=== PATIENT | male | born 1950 | race Caucasian/White ===

== ENCOUNTER 2018-07-06 23:37 | Emergency (ER) | payer MEDICARE, OTHER, SELFPAY ==
--- NOTE | 2018-07-06 23:38 | W.ED.GENAD ---
Discharge Plan Disposition Patient Disposition: HOME Condition: Stable Discharge Details Chief Complaint: RashLesion Clinical Impression: Shingles Primary Care Provider: Char Martin ED Provider: Seferino Duke Home Meds and New Rx's Prescriptions: New oxycodone 5 mg tablet 5 mg PO Q6H PRN (Reason: pain) Qty: 12 RF: 0 acyclovir 800 mg tablet 800 mg PO Q4H 7 Days Qty: 42 RF: 0 lidocaine 5 % adhesive patch,medicated 2 patch TP DAILY Qty: 30 RF: 0 Discharge Instructions Instructions: Shingles (ED) Additional Instructions: for pain take 1000mg tylenol and 600mg ibuprofen every 6 hours for pain as needed. If you need additional pain relief take 1 oxycodone. Do not drink alcohol or drive if you take this follow up as scheduled with your primary care provider next week if you have severe worsening of pain or persistent vomit return to the emergency department Medical Decision Making 67 yo male comes in with right sided back pain for a week and a rash in the area that he hurts for a few days along with some malaise, denies high fevers, hematuria. On exam in the t6 dermatome of the back on the right there is 2 areas of a maculopapular rash that are 3x2cm and 3x4cm. No current vesicles, blanches and is where his pain is localized. no cva tenderness and no urinary symptoms so doubt pyelo and pain doesn't sound consistent with renal colic. No abdominal tenderness and no guarding on exam so doubt entities such as cholecystitis or surgical pathology. Will start tx for shingles given rash seems typical for this, follows a dermatome and doesn't cross midline. I will d/c and he has f/u with pcp next week and return preautions given Differential Diagnosis shingles, cellulitis HPI General Mode of arrival: ambulatory. Date/Time Provider Initiated Documentation: 07/06/18 23:38. Limitations to Documentation: no limitations. Information obtained by: patient. History of Present Illness 67 year old M presents to the emergency department with the chief complaint of right back pain, described as moderate, Quality is described as aching, and is localized to the back and right. Patient started experiencing this week(s) (1) and it has been constant. No relieving factors improve symptom(s), No exacerbating factors reported . Patient notes other (malaise, paresthesia). Patient did receive the following treatments prior to arrival, none Related Data Home Medications Medication Instructions Recorded Confirmed acyclovir 800 mg PO Q4H 7 Days #42 tab 07/06/18 lidocaine 2 patch TP DAILY #30 each 07/06/18 oxycodone 5 mg PO Q6H PRN #12 tab 07/06/18 Previous Rx's Medication Instructions Recorded acyclovir 800 mg PO Q4H 7 Days #42 tab 07/06/18 lidocaine 2 patch TP DAILY #30 each 07/06/18 oxycodone 5 mg PO Q6H PRN #12 tab 07/06/18 Allergies Allergy/AdvReac Type Severity Reaction Status Date / Time Penicillins AdvReac Unverified 07/06/18 23:45 Review of Systems Review of Systems All systems reviewed & are unremarkable except as noted in HPI and below Constitutional Denies chills and Denies fever(s) Respiratory Denies cough Gastrointestinal Denies nausea and Denies vomiting Genitourinary Denies dysuria Musculoskeletal Denies joint swelling [facility] Social History Smoking/Tobacco Use Status: Current every day Alcohol Intake: current Alcohol Intake frequency: a few times a week Alcohol type: beer Drug use: Never Substance use type: does not use Exam Const General: no acute distress Orientation: alert HENMT Head: normal to inspection Ears: external ears normal General nose exam: external nose normal Mouth: moist mucous membranes Eyes General: appearance normal, both eyes and all related structures Neck Neck: normal visual inspection Resp Effort & Inspection: normal respiratory effort and able to speak in complete sentences Cardio Rate: regular rate Skin General skin exam: elasticity normal Neuro General: alert and oriented x3 Extrem General: normal to inspection Psych Mental Status: mental status grossly normal
[2018-07-06 23:40] VITALS: BP 169/80; PULSE 75; RESP 16; TEMP 37.1; O2SAT 96
--- NOTE | 2018-07-06 23:45 | ED.GENADUL_ITS ---
Discharge Plan Disposition Patient Disposition: HOME Condition: Stable Discharge Details Chief Complaint: RashLesion Clinical Impression: Shingles Primary Care Provider: Char Martin ED Provider: Seferino Duke Home Meds and New Rx's Prescriptions: New oxycodone 5 mg tablet 5 mg PO Q6H PRN (Reason: pain) Qty: 12 RF: 0 acyclovir 800 mg tablet 800 mg PO Q4H 7 Days Qty: 42 RF: 0 lidocaine 5 % adhesive patch,medicated 2 patch TP DAILY Qty: 30 RF: 0 Discharge Instructions Instructions: Shingles (ED) Additional Instructions: for pain take 1000mg tylenol and 600mg ibuprofen every 6 hours for pain as needed. If you need additional pain relief take 1 oxycodone. Do not drink alcohol or drive if you take this follow up as scheduled with your primary care provider next week if you have severe worsening of pain or persistent vomit return to the emergency department Medical Decision Making 67 yo male comes in with right sided back pain for a week and a rash in the area that he hurts for a few days along with some malaise, denies high fevers, ashlyn turia. On exam in the t6 dermatome of the back on the right there is 2 areas of a maculopapular rash that are 3x2cm and 3x4cm. No current vesicles, blanches and is where his pain is localized. no cva tenderness and no urinary symptoms so doubt pyelo and pain doesn't sound consistent with renal colic. No abdominal tenderness and no guarding on exam so doubt entities such as cholecystitis or surgical pathology. Will start tx for shingles given rash seems typical for this, follows a dermatome and doesn't cross midline. I will d/c and he has f/u with pcp next week and return preautions given Differential Diagnosis shingles, cellulitis HPI General Mode of arrival: ambulatory . Date/Time Provider Initiated Documentation: 07/06/18 23:38 . Limitations to Documentation: no limitations . Information obtained by: patient . History of Present Illness 67 year old M presents to the emergency department with the chief complaint of right back pain, described as moderate, Quality is described as aching, and is localized to the back and right. Patient started experiencing this week(s) (1) and it has been constant. No relieving factors improve symptom(s), No exacerbating factors reported . Patient notes other (malaise, paresthesia). Patient did receive the following treatments prior to arrival, none Related Data Home Medications Medication Instructions Recorded Confirmed acyclovir 800 mg PO Q4H 7 Days #42 tab 07/06/18 lidocaine 2 patch TP DAILY #30 each 07/06/18 oxycodone 5 mg PO Q6H PRN #12 tab 07/06/18 Previous Rx's Medication Instructions Recorded acyclovir 800 mg PO Q4H 7 Days #42 tab 07/06/18 lidocaine 2 patch TP DAILY #30 each 07/06/18 oxycodone 5 mg PO Q6H PRN #12 tab 07/06/18 Allergies Allergy/AdvReac Type Severity Reaction Status Date / Time Penicillins AdvReac Unverified 07/06/18 23:45 Review of Systems Review of Systems All systems reviewed & are unremarkable except as noted in HPI and below Constitutional Denies chills and Denies fever(s) Respiratory Denies cough Gastrointestinal Denies nausea and Denies vomiting Genitourinary Denies dysuria Musculoskeletal Denies joint swelling PFSH Social History Smoking/Tobacco Use Status: Current every day Alcohol Intake: current Alcohol Intake frequency: a few times a week Alcohol type: beer Drug use: Never Substance use type: does not use Exam Const General: no acute distress Orientation: alert HENMT Head: normal to inspection Ears: external ears normal General nose exam: external nose normal Mouth: moist mucous membranes Eyes General: appearance normal, both eyes and all related structures Neck Neck: normal visual inspection Resp Effort & Inspection: normal respiratory effort and able to speak in complete sentences Cardio Rate: regular rate Skin General skin exam: elasticity normal Neuro General: alert and oriented x3 Extrem General: normal to inspection Psych Mental Status: mental status grossly normal
[2018-07-06] MEDS: Acyclovir 400 MG TAB 800 MG PO (23:51)
[2018-07-06] MEDS: Lidocaine 5% Patch 1 PATCH TP (23:52)
[2018-07-07] MEDS: oxyCODONE 5 MG TAB PO ×2 (00:03→00:04)
== END 2018-07-07 00:17 | disposition home or self-care (01) ==
LOC: ER 07-07 00:16
PROVIDERS: Emergency Provider Emergency Medicine
DX: M54.5 Low back pain (principal); B02.9 Zoster without complications
CPT/HCPCS: 99283

== ENCOUNTER 2018-07-17 02:15 | Outpatient (CLI) | payer MEDICARE, OTHER, SELFPAY ==
[2018-07-17 12:51] LABS: ALT 20 U/L (12-78); AST 20 U/L (15-37); Alkaline Phosphatase 85 U/L (46-116); BUN 17 mg/dL (7-18); Bilirubin, Total 0.6 mg/dL (0.2-1.0); CREATININE 1.29 mg/dL (0.70-1.30); Calcium 9.3 mg/dL (8.5-10.1); Chloride 103 mmol/L (98-107); Cholesterol 274 mg/dL (50-200); Estimated GFR 55.72 (mL/min/1.73m2); Glucose 86 mg/dL (70-100); HDL Cholesterol 54 mg/dL (40-60); LDL CHOLESTEROL 196 mg/dL (<100); Sodium 141 mmol/L (136-145); TSH (W/Ref FT4) 13.29 uIU/mL (0.358-3.74); Total Protein 7.1 g/dL (6.4-8.2); Triglyceride 98 mg/dL (30-150)
[2018-07-17 14:15] LABS: FREE T4 0.87 ng/dL (0.76-1.46)
[2018-07-18 10:59] LABS: PSA, Screening 1.1 ng/ml (0-4.5)
== END 2018-07-17 02:35 ==
DX: E03.9 Hypothyroidism, unspecified (principal); G47.00 Insomnia, unspecified; I10 Essential (primary) hypertension; N40.0 Benign prostatic hyperplasia without lower urinary tract symptoms; R00.0 Tachycardia, unspecified; Z12.5 Encounter for screening for malignant neoplasm of prostate
CPT/HCPCS: 36415; 80053; 80061; 83721; 84153; 84439; 84443

== ENCOUNTER 2018-08-25 14:56 | Outpatient (CLI) | payer MEDICARE, OTHER, SELFPAY ==
--- NOTE | 2018-08-25 09:30 | DI.RAD_ITS ---
SYMPTOM/DIAGNOSIS: ACUTE KNEE PAIN, M25.569 LEFT KNEE: There are no prior comparison exams. The joint spaces are well maintained. No fracture or joint effusion is seen. There is minimal periarticular spurring. IMPRESSION: Minimal degenerative changes.
== END 2018-08-25 15:16 ==
DX: M25.562 Pain in left knee (principal); M17.12 Unilateral primary osteoarthritis, left knee
CPT/HCPCS: 73562

== ENCOUNTER 2018-09-12 02:21 | Outpatient (CLI) | payer MEDICARE, OTHER, SELFPAY ==
[2018-09-12 10:00] LABS: TSH (W/Ref FT4) 14.61 uIU/mL (0.358-3.74)
[2018-09-12 10:31] LABS: FREE T4 0.89 ng/dL (0.76-1.46)
== END 2018-09-12 02:41 ==
DX: E03.9 Hypothyroidism, unspecified (principal); R00.2 Palpitations; G47.00 Insomnia, unspecified
CPT/HCPCS: 36415; 84439; 84443

== ENCOUNTER 2018-11-05 01:51 | Outpatient (CLI) | payer MEDICARE, OTHER, SELFPAY ==
[2018-11-05 13:03] LABS: Anion Gap 4.8 mmol/L (3-11); BUN 22 mg/dL (7-18); CO2 31.2 mmol/L (21.0-32.0); CREATININE 1.39 mg/dL (0.70-1.30); Calcium 8.9 mg/dL (8.5-10.1); Chloride 101 mmol/L (98-107); Estimated GFR 50.97 (mL/min/1.73m2); Glucose 97 mg/dL (70-100); Potassium 4.4 mmol/L (3.5-5.1); Sodium 137 mmol/L (136-145); TSH (W/Ref FT4) 11.01 uIU/mL (0.36-3.74)
[2018-11-05 13:20] LABS: FREE T4 1.08 ng/dL (0.76-1.46)
== END 2018-11-05 02:11 ==
DX: E03.9 Hypothyroidism, unspecified (principal); I10 Essential (primary) hypertension
CPT/HCPCS: 36415; 80048; 84439; 84443

== ENCOUNTER 2019-02-11 01:53 | Outpatient (CLI) | payer MEDICARE, OTHER, SELFPAY ==
[2019-02-11 11:11] LABS: TSH (W/Ref FT4) 10.38 uIU/mL (0.36-3.74)
[2019-02-11 11:32] LABS: FREE T4 0.91 ng/dL (0.76-1.46)
== END 2019-02-11 02:13 ==
DX: E03.9 Hypothyroidism, unspecified (principal); G47.00 Insomnia, unspecified
CPT/HCPCS: 36415; 84439; 84443

== ENCOUNTER 2019-03-17 03:11 | Outpatient (CLI) | payer MEDICARE, OTHER, SELFPAY ==
[2019-03-17 13:31] LABS: FREE T4 1.15 ng/dL (0.76-1.46)
== END 2019-03-17 03:31 ==
DX: E03.9 Hypothyroidism, unspecified (principal); G47.00 Insomnia, unspecified
CPT/HCPCS: 36415; 84439; 84443

== ENCOUNTER 2019-07-03 01:58 | Outpatient (CLI) | payer MEDICARE, OTHER, SELFPAY ==
[2019-07-03 09:34] LABS: ALT 22 U/L (16-63); AST 24 U/L (15-37); Albumin 3.9 g/dL (3.4-5.0); Alkaline Phosphatase 83 U/L (46-116); Anion Gap 7.6 mmol/L (3-11); BUN 17 mg/dL (7-18); Bilirubin, Total 0.5 mg/dL (0.2-1.0); CO2 32.4 mmol/L (21.0-32.0); CREATININE 1.37 mg/dL (0.70-1.30); Calculated LDL 229 mg/dL (<100); Chloride 95 mmol/L (98-107); Cholesterol 306 mg/dL (<200); Estimated GFR 51.83 (mL/min/1.73m2); Glucose 94 mg/dL (74-106); HDL Cholesterol 59 mg/dL (40-60); Potassium 3.9 mmol/L (3.5-5.1); Sodium 135 mmol/L (136-145); TSH (W/Ref FT4) 11.31 uIU/mL (0.36-3.74); Total Protein 7.1 g/dL (6.4-8.2); Triglyceride 92 mg/dL (<150)
[2019-07-03 09:55] LABS: FREE T4 1.18 ng/dL (0.76-1.46)
== END 2019-07-03 02:18 ==
DX: E03.9 Hypothyroidism, unspecified (principal); I10 Essential (primary) hypertension; E78.6 Lipoprotein deficiency; E78.00 Pure hypercholesterolemia, unspecified
CPT/HCPCS: 36415; 80053; 80061; 84439; 84443

== ENCOUNTER → 2019-08-04 09:31 | Outpatient (BNVA) | payer MEDICARE, OTHER, SELFPAY | PROVIDERS: Visit Provider Orthopaedic Surgery | DX: M25.562 Pain in left knee (principal); G89.29 Other chronic pain; J44.9 Chronic obstructive pulmonary disease, unspecified; I10 Essential (primary) hypertension; F17.210 Nicotine dependence, cigarettes, uncomplicated | CPT/HCPCS: 99201; 99213 ==

== ENCOUNTER 2019-08-13 01:29 | Outpatient (CLI) | payer MEDICARE, OTHER, SELFPAY ==
--- NOTE | 2019-08-13 | DI.MRI_ITS ---
EXAM: MR LOWER JOINT LT WO CLINICAL HISTORY: PAIN. TECHNIQUE: Multiplanar multisequence MRI was performed. COMPARISON: CR XR knee LT 3V AP,lat,roxane from 08/25/2018 FINDINGS: BONES: There is no fracture or contusion pattern. Small subchondral cysts in the distal femur. JOINTS: Articular cartilage is unremarkable. No effusion is present. TENDONS: Extensor mechanism: Unremarkable. Medial retinaculum: Unremarkable. Lateral retinaculum: Unremarkable. Popliteus: Unremarkable. MUSCLES: Unremarkable. MENISCI: There is a tear of the body and posterior horn of the medial meniscus. The lateral meniscus is unremarkable. SOFT TISSUES: Small loculated cyst posterior to the distal femur. LIGAMENTS: Anterior Cruciate: Unremarkable. Posterior Cruciate: Unremarkable. Medial Collateral:Unremarkable. Lateral Collateral: Unremarkable. OTHER: IMPRESSION: Tear of the body and posterior horn of the medial meniscus. DATA REPOSITORY:
== END 2019-08-13 01:49 ==
PROVIDERS: Visit Provider Orthopaedic Surgery
DX: M25.562 Pain in left knee (principal); S83.242A Other tear of medial meniscus, current injury, left knee, initial encounter; M85.462 Solitary bone cyst, left tibia and fibula
CPT/HCPCS: 73721

== ENCOUNTER → 2019-08-18 08:36 | Outpatient (BNVA) | payer MEDICARE, OTHER, SELFPAY | PROVIDERS: Visit Provider Orthopaedic Surgery | DX: S83.242A Other tear of medial meniscus, current injury, left knee, initial encounter (principal); X58.XXXA Exposure to other specified factors, initial encounter | CPT/HCPCS: 99213 ==

== ENCOUNTER 2019-08-21 03:12 | Outpatient (CLI) | payer MEDICARE, OTHER, SELFPAY | END 2019-08-21 03:32 | PROVIDERS: Visit Provider Nurse Anesthetist, Certified Registered | DX: Z01.810 Encounter for preprocedural cardiovascular examination (principal); I10 Essential (primary) hypertension; E03.9 Hypothyroidism, unspecified | CPT/HCPCS: U0003; 93005; 93010 ==

== ENCOUNTER 2019-08-21 09:18 | Outpatient (CLI) | payer MEDICARE, OTHER, SELFPAY ==
[2019-08-21 23:37] LABS: COVID-19 RT-PCR UVMMC Result Negative (Negative)
== END 2019-08-21 09:38 ==
PROVIDERS: Visit Provider Orthopaedic Surgery
DX: Z11.59 Encounter for screening for other viral diseases (principal); Z01.818 Encounter for other preprocedural examination
CPT/HCPCS: U0003

== ENCOUNTER 2019-08-24 12:12 | Day surgery (SDC) | payer MEDICARE, OTHER, SELFPAY ==
[2019-08-24] VITALS (9 sets, daily range): BP systolic 62–180; BP diastolic 41–90; PULSE 55–88; RESP 9–18; TEMP 36–36.7; O2SAT 96–100
[2019-08-24] MEDS: Lactated Ringers 1,000 ML 80 ML IV ×2 (13:17→16:43)
[2019-08-24] MEDS: ceFAZolin 1 GM/50 ML BAG IVPB (15:27)
[2019-08-24] MEDS: Albuterol HFA 8 GM 60 PUFF INH IH (15:28)
--- NOTE | 2019-08-24 16:53 | W.PM.DSUDISC ---
Discharge Plan Disposition Patient Disposition: HOME Condition: Good Discharge Details Reason For Visit: ARTHROSCOPY L knee Attending Provider: Teja Johns Primary Care Provider: Char Martin Home Meds and New Rx's Prescriptions: New ibuprofen 800 mg tablet 800 mg PO TID Qty: 30 RF: 0 hydrocodone-acetaminophen 5-325 mg tablet 1 tab PO Q6H PRN (Reason: pain) Qty: 14 RF: 0 Continued levothyroxine 75 mcg tablet 75 mcg PO DAILY Qty: 90 RF: 3 lisinopril 10 mg tablet 10 mg PO DAILY Qty: 30 RF: 2 hydrochlorothiazide 25 mg tablet 25 mg PO QAM Qty: 90 RF: 3 amlodipine 5 mg tablet 5 mg PO BID Qty: 180 RF: 3 Discharge Instructions Additional Instructions: Elevate L leg when sitting. Crutches to walk. May put as much weight on L leg as your pain allows. Discontinue crutches when you can step on L leg with minimal pain. Leave cryocuff on L knee continuously overnite tonite. Tomorrow, start to use 4 times/day for 1 hour each time. May remove dressings, shower, and get incisions wet after 48 hours post-op. Leave incisions uncovered when they are dry and sealed. Outpatient Physical Therapy on or Saturday for ROM and strengthening of L knee post-arthroscopic partial medial meniscectomy. Return to 's office in 2 weeks. Take ibuprofen as prescribed, 3 times/day for 10 days to decrease swelling and inflammation in L knee. Take hydrocodone for breakthrough pain, if needed. Referrals: Teja oJhns MD [ [facility] STAFF PHYSICIAN] - (Follow up in 2 weeks.) Equipment/Supplies: Partial Weight Bearing Crutches Activity:: Activity as Tolerated Remove Dressings/Wound Care:: 48 hours Shower/Bathe:: 48 hours Diet:: As Tolerated Discharge Orders Discharge Orders: Discharge Order (Routine); Ordered 08/24/19 Ordered By: Teja Johns DS: Diagnosis Discharge Diagnosis (1) Tear of medial meniscus of left knee: Status: Acute
[2019-08-24] MEDS: oxyCODONE-CR 10 MG TABCR PO (18:14)
--- NOTE | 2019-08-26 14:12 | W.PM.OP ---
Date of service: 08/24/19 Time of Service: 18:00 Operative Note Operative Note DATE OF PROCEDURE: 08/24/19 PRE-OP DIAGNOSIS: Torn left medial meniscus POST-OP DIAGNOSIS: same PROCEDURE: Arthroscopic partial left medial meniscectomy. SURGEON: Teja Johns ANESTHESIA: GETA ESTIMATED BLOOD LOSS: 0 PATHOLOGY: none sent COMPLICATIONS: None Patient was transported to: PACU Patient's condition: stable Indications: This 61-year-old male with proximal calf pain of over 2 years duration. Physical findings were minimal. Full work-up with ultrasound and MRI scan revealed torn posterior horn of the medial meniscus. I feel there is good possibility that he is proximal calf pain was related to his torn medial meniscus. I told him I could not be 100% sure however. Calf muscle looks normal on MRI and no other lesions are seen in the posterior calf. He is tired of the pain would like to proceed with arthroscopy and partial medial meniscectomy in hopes of alleviating the pain. Risk complications procedure explained patient detail preop. Findings: He had a complex tear of the posterior horn of the medial meniscus Procedure Description: Patient in the operating room on 08/24/2019 space upon operatively general anesthetic was administered. The left thigh was placed in the arthroscopic leg randolph and the left knee was prepped and draped free in the usual sterile fashion. Arthroscopic portals were established the left knee was inflated with normal saline solution using the arthroscopy pump and then routine arthroscopic lamination proceeded. Intraoperative photographs were obtained to document findings. Upon entering the medial compartment he was found to have a complex tear the posterior horn of the medial meniscus. Using high radiofrequency electrocautery I debrided the meniscus back to a stable rim. The meniscal rim was then probed with a right angle probe and found to be fully stable. There was some mild grade II chondromalacia the medial femoral condyle mostly at the medial edge of the intercondylar notch. A limited chondroplasty was performed with the high radiofrequency electrocautery wand. Intercondylar notch showed intact anterior and posterior cruciate ligaments. Lateral compartment showed normal articular cartilage lateral compartment and a normal lateral meniscus. Medial and lateral gutters were clear. Suprapatellar pouch was clear. Patellofemoral joint showed normal articular cartilage. The patella was tracking anatomically in the trochlea of the femur. There was a mild residual plica that was excised with high radiofrequency electrocautery wand. This restored the full volume of the medial gutter. The knee was irrigated with normal saline solution using the arthroscopy pump until the outflow was clear. The arthroscopy portals were infiltrated 0.5% Marcaine with epinephrine solution and approximated with interrupted 4 nylon sutures. 15 cc of 0.5% Marcaine with epinephrine solution along with 4 mg of morphine were then instilled into the left knee for postoperative analgesia. The incisions were dressed with Xeroform gauze sterile gauze 4 x 4's ABD pads and wrapped with 6 inch Theodore bandages for light pressure dressing. Patient's anesthesia was reversed complications. Blood loss was minimal. He was discharged to recovery in good condition. Patient was discharged home from day surgery unit when fully recovered from his general anesthesia. Given instructions to try to elevate his left leg on 1 2 pillows much possible next 48 hours. He is to apply the Cryo/Cuff to the left knee continuously overnight tonight. Tomorrow he may start to use a Cryo/Cuff 4 times a day for an hour each time. He is to use crutches to walk weightbearing as tolerated on the left leg. May discontinue the crutches when he can put full weight on the left leg with minimal pain. He may remove his dressing shower get incisions wet after 48 hours. He can leave the incisions uncovered when they are dry and sealed. He will take ibuprofen, 800 mg p.o. 3 times daily for the next 10 days. He is given a prescription for breakthrough pain of hydrocodone with APAP 07/04/2024 1 tab every 6 hours if needed. Begin outpatient physical therapy at [facility] on 625 08/28/2019. He will follow-up with Dr. Johns in 2 weeks.
== END 2019-08-24 19:15 | disposition home or self-care (01) ==
PROVIDERS: Visit Provider Orthopaedic Surgery
PROC: (CPT 29870; principal; 2019-08-24 14:30)
DX: M23.222 Derangement of posterior horn of medial meniscus due to old tear or injury, left knee (principal); M25.562 Pain in left knee; M94.262 Chondromalacia, left knee
CPT/HCPCS: 29881; 94640; E0114; J0690; J1100; J1885; J2001; J2250; J2405; J2704

== ENCOUNTER → 2019-09-08 11:33 | Outpatient (BNVA) | payer MEDICARE, OTHER, SELFPAY | PROVIDERS: Visit Provider Orthopaedic Surgery | DX: S83.242D Other tear of medial meniscus, current injury, left knee, subsequent encounter (principal); X58.XXXD Exposure to other specified factors, subsequent encounter ==

== ENCOUNTER → 2019-10-06 10:25 | Outpatient (BNVA) | payer MEDICARE, OTHER, SELFPAY | PROVIDERS: Visit Provider Orthopaedic Surgery | DX: Z47.89 Encounter for other orthopedic aftercare (principal); M79.662 Pain in left lower leg ==

== ENCOUNTER 2019-11-02 04:55 | Outpatient (CLI) | payer MEDICARE, OTHER, SELFPAY ==
[2019-11-02 12:45] LABS: Anion Gap 4.8 mmol/L (3-11); BUN 20 mg/dL (7-18); CO2 33.2 mmol/L (21.0-32.0); CREATININE 1.39 mg/dL (0.70-1.30); Calcium 8.9 mg/dL (8.5-10.1); Chloride 100 mmol/L (98-107); Estimated GFR 50.82 (mL/min/1.73m2); Glucose 92 mg/dL (74-106); Magnesium 2.2 mg/dL (1.8-2.4); Potassium 4.1 mmol/L (3.5-5.1); Sodium 138 mmol/L (136-145); TSH (W/Ref FT4) 17.78 uIU/mL (0.36-3.74)
[2019-11-02 22:34] LABS: PSA, Screening 1.2 ng/mL (0.0-4.5)
== END 2019-11-02 05:15 ==
DX: E03.9 Hypothyroidism, unspecified (principal); I10 Essential (primary) hypertension; N40.0 Benign prostatic hyperplasia without lower urinary tract symptoms; Z12.5 Encounter for screening for malignant neoplasm of prostate; Z72.0 Tobacco use
CPT/HCPCS: 36415; 80048; 84153; 83735; 84439; 84443

== ENCOUNTER 2020-02-11 12:01 | Emergency (ER) | payer MEDICARE, OTHER, SELFPAY ==
[2020-02-11] VITALS (49 sets, daily range): BP systolic 117–171; BP diastolic 78–125; PULSE 0–128; RESP 9–38; TEMP 36.4; O2SAT 95–99
--- NOTE | 2020-02-11 12:00 | RT.EKG_ITS ---
APPROVED REPORT Exam: Resting ECG Patient Location: E HR:105 bpm ECG Measurements Heart Rate 105 AXIS NH 154 P 73 QRSd 87 QRS 73 QT 321 T 56 QTc 424 Conclusion Sinus tachycardia. Probable left atrial enlargement Repolarization changes anterior
--- NOTE | 2020-02-11 12:22 | W.ED.GENAD ---
Discharge Plan Disposition Patient Disposition: HOME Condition: Stable Discharge Details Clinical Impression: Hyponatremia, Dyspnea on exertion Primary Care Provider: Char Martin ED Provider: Bc Blackwell Home Meds and New Rx's Prescriptions: Continued levothyroxine 75 mcg tablet 75 mcg PO DAILY Qty: 90 RF: 3 hydrochlorothiazide 25 mg tablet 25 mg PO QAM Qty: 90 RF: 3 lisinopril 10 mg tablet 10 mg PO DAILY Qty: 90 RF: 3 Discharge Instructions Instructions: Hyponatremia (ED), Dyspnea (ED) Additional Instructions: Your sodium level was 124 and has increased up to 130 after IV fluids. Otherwise your laboratory values are unremarkable and there is no obvious emergent process. We discussed observation admission but you feel well enough for discharge home at this time. I would continue to monitor your blood pressure carefully. You did make dietary changes and likely had been drinking slightly too much water and not having enough sodium which resulted in your levels dropping today. I do recommend that you watch for new or worsening symptoms and return to the ER for any concerns. Otherwise I would contact your primary care provider tomorrow for prompt outpatient reevaluation. As we discussed, given your dyspnea with exertion an outpatient stress test may also be indicated. Discharge Data Discharge Date/Time-TO BE ENTERED AT DEPARTURE: 02/11/20 17:47 Medical Decision Making <Angela Woodall - Last Filed: 02/12/20 08:13> 69-year-old male presents to the ED with chief complaint of high blood pressure and shortness of breath with exertion. He reports that he was helping his friend with a snowblower yesterday and began short of breath and began vomiting. He denies any chest pain no lower extremity swelling. He does take 25 mg hydrochlorothiazide, lisinopril 10 mg and levothyroxine daily. He is tachycardic upon arrival and does state that he feels intermittent palpitations. He recently quit smoking in August. He does have a past medical history of anxiety, hypertension, COPD, BPH, hypothyroidism. He reports occasional alcohol denies drugs. Sodium came back critically low at 124. According to up-to-date hyponatremia pathway the hyponatremia is possibly due to the use of a thiazide type diuretic. This diuretic should most likely be discontinued. 1410: Upon further discussion with patient he states that he was told by his PCP to decrease sodium intake, increase oral fluids along with his diuretic may have all been contributing to the low sodium. He also states that he has been noticing some muscle cramps over the last few days. Serial troponin is due at approximately 1600 at that time we will repeat a BMP. Discussed possible admission with patient who verbalizes understanding. At this time second troponin is pending, we will repeat BMP patient has gotten a liter of normal saline since initial draw and has a second liter up at 250 an hour. Care is to be handed off to oncoming provider Bc Blackwell pending repeat labs and possible admission for hyponatremia. <ASIF Walsh - Last Filed: 02/11/20 17:43> This is a 69-year-old gentleman who was signed out to me at shift change by my colleague OMER Woodall. Please see her initial HPI and physical examination. In short, at time of signout we are awaiting to redraw for a repeat troponin, basic metabolic panel to evaluate his sodium which was 124 upon arrival, and EKG.. He has received 1 L IV fluid and then maintenance fluids. Patient would prefer to be discharged home as opposed to observation admission. Repeat troponin is less than 0.05. Repeat sodium 130. Repeat EKG performed at 1636, please see official report by Dr. Braswell. Sinus rhythm, ventricular rate of 83. No STEMI. I have not received a call back from the hospitalist team who was paged prior to my shift starting. I went into the exam room once again to discuss results with patient. He reports that he is feeling significantly better. His blood pressure is trending down nicely and is heart rate is appropriate at 78. We discussed his repeat EKG, troponin, basic metabolic panel. He is relieved. It does sound as though he did decrease his sodium intake and increase his fluid intake quite rapidly over the past several days, this certainly could play a role in his acute hyponatremia. We once again discussed his disposition, however he would prefer not to be admitted to our facility for observation at this time. He feels well enough to go home and he plans to contact his primary care provider tomorrow to discuss his work-up here in the ER and his ongoing care. We discussed his hypertension, hyponatremia, dyspnea on exertion, potential need for outpatient stress test if symptoms persist. He was encouraged to return to the ER for new or worsening symptoms. Upon discharge patient appears well, nontoxic, has no additional questions or concerns and would like to be discharged. I did discuss disposition with Dr. Braswell prior to discharge Medical Records Medical records reviewed: Yes I reviewed the patient's medical records. Lab Data Lab results reviewed: Yes I reviewed the patient's lab results. Lab results narrative: Laboratory Tests Range/Units 02/11/20 02/11/20 02/11/20 12:27 12:50 13:07 WBC (4.4-10.8) 10^3/uL 9.55 RBC (4.36-5.78) 10^6/uL 5.61 Hgb (13.5-17.5) g/dL 17.1 Hct (40.0-50.0) % 49.2 MCV (80-95) fL 87.7 MCH (27.0-33.0) pg 30.5 MCHC (32.0-36.0) % 34.8 RDW (11.8-14.1) % 12.1 Plt Count (130-400) 10^3/uL 274 MPV (8.0-11.0) fL 9.2 Immature Gran % 0.3 Neutrophils % 69.5 Lymphocytes % 17.9 Monocytes % 10.7 Eosinophils % 0.7 Basophils % 0.9 Nucleated RBC % % 0 Absolute Neutrophils (1.2-6.7) 10^3/uL 6.63 Absolute Lymphocytes (1.2-3.4) 10^3/uL 1.71 Absolute Monocytes (0.1-0.8) 10^3/uL 1.02 H Absolute Eosinophils (0.0-0.7) 10^3/uL 0.07 Absolute Basophils (0.0-0.2) 10^3/uL 0.09 Sodium (136-145) mmol/L 124 L* Potassium (3.5-5.1) mmol/L 3.9 Chloride (98-107) mmol/L 90 L Carbon Dioxide (21.0-32.0) mmol/L 28.0 Anion Gap (3-11) mmol/L 6.0 BUN (7-18) mg/dL 14 Creatinine (0.70-1.30) mg/dL 1.36 H Estimated GFR/1.73 m2 (mL/min/1.73m2) 52.11 Glucose (74-106) mg/dL 129 H Calcium (8.5-10.1) mg/dL 9.6 Magnesium (1.8-2.4) mg/dL 2.3 Total Bilirubin (0.2-1.0) mg/dL 0.7 AST (15-37) U/L 36 ALT (16-63) U/L 27 Alkaline Phosphatase (46-116) U/L 73 Troponin I (<0.06) ng/mL < 0.05 NT-Pro-B Natriuret Pep (<300) pg/mL Total Protein (6.4-8.2) g/dL 8.0 Albumin (3.4-5.0) g/dL 4.5 TSH (0.36-3.74) uIU/mL Free T4 (0.76-1.46) ng/dL Urine Color (Yellow) Yellow Urine Clarity (Clear) Clear Urine pH (5-8) 7.0 Ur Specific [place] (1.005-1.025) 1.020 Urine Protein (Negative) mg/dL Trace H Urine Ketones (Negative) mg/dL Negative Urine Blood (Negative) Trace-lysed H Urine Nitrite (Negative) Negative Urine Bilirubin (Negative) Negative Urine Urobilinogen (Up TO 0.2) EU/dL 0.2 Ur Leukocyte Esterase (Negative) Negative Urine RBC (0-2) HPF 0-2 Urine WBC (0-5) HPF 0-2 Ur Epithelial Cells (Negative) HPF Rare Urine Crystals (Negative) HPF Negative Urine Bacteria (Negative) HPF Rare Urine Casts (Negative) LPF Urine Mucus (Negative) Trace Ur Culture Indicated? No Urine Glucose (Negative) mg/dL Negative Range/Units 02/11/20 02/11/20 02/11/20 13:07 13:07 16:00 WBC (4.4-10.8) 10^3/uL RBC (4.36-5.78) 10^6/uL Hgb (13.5-17.5) g/dL Hct (40.0-50.0) % MCV (80-95) fL MCH (27.0-33.0) pg MCHC (32.0-36.0) % RDW (11.8-14.1) % Plt Count (130-400) 10^3/uL MPV (8.0-11.0) fL Immature Gran % Neutrophils % Lymphocytes % Monocytes % Eosinophils % Basophils % Nucleated RBC % % Absolute Neutrophils (1.2-6.7) 10^3/uL Absolute Lymphocytes (1.2-3.4) 10^3/uL Absolute Monocytes (0.1-0.8) 10^3/uL Absolute Eosinophils (0.0-0.7) 10^3/uL Absolute Basophils (0.0-0.2) 10^3/uL Sodium (136-145) mmol/L Potassium (3.5-5.1) mmol/L Chloride (98-107) mmol/L Carbon Dioxide (21.0-32.0) mmol/L Anion Gap (3-11) mmol/L BUN (7-18) mg/dL Creatinine (0.70-1.30) mg/dL Estimated GFR/1.73 m2 (mL/min/1.73m2) Glucose (74-106) mg/dL Calcium (8.5-10.1) mg/dL Magnesium (1.8-2.4) mg/dL Total Bilirubin (0.2-1.0) mg/dL AST (15-37) U/L ALT (16-63) U/L Alkaline Phosphatase (46-116) U/L Troponin I (<0.06) ng/mL < 0.05 NT-Pro-B Natriuret Pep (<300) pg/mL 116 Total Protein (6.4-8.2) g/dL Albumin (3.4-5.0) g/dL TSH (0.36-3.74) uIU/mL 11.28 H Free T4 (0.76-1.46) ng/dL 1.31 Urine Color (Yellow) Urine Clarity (Clear) Urine pH (5-8) Ur Specific [place] (1.005-1.025) Urine Protein (Negative) mg/dL Urine Ketones (Negative) mg/dL Urine Blood (Negative) Urine Nitrite (Negative) Urine Bilirubin (Negative) Urine Urobilinogen (Up TO 0.2) EU/dL Ur Leukocyte Esterase (Negative) Urine RBC (0-2) HPF Urine WBC (0-5) HPF Ur Epithelial Cells (Negative) HPF Urine Crystals (Negative) HPF Urine Bacteria (Negative) HPF Urine Casts (Negative) LPF Urine Mucus (Negative) Ur Culture Indicated? Urine Glucose (Negative) mg/dL Range/Units 12/10/20 16:00 WBC (4.4-10.8) 10^3/uL RBC (4.36-5.78) 10^6/uL Hgb (13.5-17.5) g/dL Hct (40.0-50.0) % MCV (80-95) fL MCH (27.0-33.0) pg MCHC (32.0-36.0) % RDW (11.8-14.1) % Plt Count (130-400) 10^3/uL MPV (8.0-11.0) fL Immature Gran % Neutrophils % Lymphocytes % Monocytes % Eosinophils % Basophils % Nucleated RBC % % Absolute Neutrophils (1.2-6.7) 10^3/uL Absolute Lymphocytes (1.2-3.4) 10^3/uL Absolute Monocytes (0.1-0.8) 10^3/uL Absolute Eosinophils (0.0-0.7) 10^3/uL Absolute Basophils (0.0-0.2) 10^3/uL Sodium (136-145) mmol/L 130 L Potassium (3.5-5.1) mmol/L 3.7 Chloride (98-107) mmol/L 95 L Carbon Dioxide (21.0-32.0) mmol/L 29.6 Anion Gap (3-11) mmol/L 5.4 BUN (7-18) mg/dL 12 Creatinine (0.70-1.30) mg/dL 1.37 H Estimated GFR/1.73 m2 (mL/min/1.73m2) 51.67 Glucose (74-106) mg/dL 97 Calcium (8.5-10.1) mg/dL 8.9 Magnesium (1.8-2.4) mg/dL Total Bilirubin (0.2-1.0) mg/dL AST (15-37) U/L ALT (16-63) U/L Alkaline Phosphatase (46-116) U/L Troponin I (<0.06) ng/mL NT-Pro-B Natriuret Pep (<300) pg/mL Total Protein (6.4-8.2) g/dL Albumin (3.4-5.0) g/dL TSH (0.36-3.74) uIU/mL Free T4 (0.76-1.46) ng/dL Urine Color (Yellow) Urine Clarity (Clear) Urine pH (5-8) Ur Specific [place] (1.005-1.025) Urine Protein (Negative) mg/dL Urine Ketones (Negative) mg/dL Urine Blood (Negative) Urine Nitrite (Negative) Urine Bilirubin (Negative) Urine Urobilinogen (Up TO 0.2) EU/dL Ur Leukocyte Esterase (Negative) Urine RBC (0-2) HPF Urine WBC (0-5) HPF Ur Epithelial Cells (Negative) HPF Urine Crystals (Negative) HPF Urine Bacteria (Negative) HPF Urine Casts (Negative) LPF Urine Mucus (Negative) Ur Culture Indicated? Urine Glucose (Negative) mg/dL HPI <Angela Woodall - Last Filed: 02/12/20 08:13> General Mode of arrival: ambulatory. Date/Time Provider Initiated Documentation: 02/11/20 12:03. Limitations to Documentation: no limitations. Information obtained by: patient. HPI Narrative: 61-year-old male presents to the ED with chief complaint of high blood pressure and shortness of breath with exertion. He reports that he was helping his friend with a snowblower yesterday and began short of breath and began vomiting. He denies any chest pain no lower extremity swelling. He does take 25 mg hydrochlorothiazide, lisinopril 10 mg and levothyroxine daily. He is tachycardic upon arrival and does state that he feels intermittent palpitations. He recently quit smoking in August. He does have a past medical history of anxiety, hypertension, COPD, BPH, hypothyroidism. He reports occasional alcohol denies drugs. Related Data Home Medications Medication Instructions Recorded Confirmed levothyroxine 75 mcg tablet 75 mcg PO DAILY #90 tab 03/26/19 02/11/20 hydrochlorothiazide 25 mg tablet 25 mg PO QAM #90 tab 08/11/19 02/11/20 lisinopril 10 mg tablet 10 mg PO DAILY #90 tab 11/10/19 02/11/20 Previous Rx's Medication Instructions Recorded levothyroxine 75 mcg tablet 75 mcg PO DAILY #90 tab 03/26/19 hydrochlorothiazide 25 mg tablet 25 mg PO QAM #90 tab 08/11/19 lisinopril 10 mg tablet 10 mg PO DAILY #90 tab 11/10/19 Allergies Allergy/AdvReac Type Severity Reaction Status Date / Time Penicillins AdvReac Verified 02/11/20 12:08 General Stated Complaint: GenMedical TERESITA: 3 Review of Systems <Angela Woodall - Last Filed: 02/12/20 08:13> Narrative: Constitutional: Negative for weight loss, alert and oriented, well groomed, normal body habitus, appears comfortable. HEENT: Denies trauma, headaches, blurry vision, nasal discharge, sore throat, trouble swallowing. Chest: Denies chest pain, palpitations, irregular rhythm, hypertension. Respiratory: Denies cough, hemoptysis. Positive exertional shortness of breath. GI: Denies abdominal pain, diarrhea, constipation. Vomited yesterday. : Denies dysuria, hematuria, flank pain, rectal bleeding. Neuro: Denies dizziness, blurry vision, weakness, syncope, headache or facial numbness. Hematologic: Denies easy bruising, intolerance to heat or cold, hair loss. PFSH <Angela Woodall - Last Filed: 02/12/20 08:13> Medical History Anxiety BPH w/o urinary obs/LUTS COPD (chronic obstructive pulmonary disease) Pt. states he runs out of breath pretty quickly Essential hypertension (Unknown) History of chest pain Per CT records: EKG NSR without acute changes 05/05/2013, Stress Test:Extremely poor exercise capacity but negative stress test without EKG changes at 91% of maximum predicted heart rate for age. BP response normal, no arrhythmias detected; pharmalogic nuclear stress test might be useful to better exclude possible underlying ischemia in this patient with extremely poor exercise tolerance. 24 Holter Monitor done 06/01/13: SR with 87 PVCs noted. No runs noted. No pauses noted. No arrythmias. Cardiac Echo was noted as being ordered but none found in packet of Medical Records. (See scanned record- Dr. Eliazar Lovett) Hypercholesteremia Hypolipidemia Hypothyroidism Pain due to dental caries Pain of left calf Sinus tachycardia Tobacco abuse Smokes 1PPD QUIT 08/2019 Urinary frequency Surgical History History of tonsillectomy Family History Mother Asthma Father Heart disease Prostate cancer Brother No problems noted. Son No problems noted. Daughter No problems noted. Social History Smoking/Tobacco Use Status: Former Tobacco Use Tobacco: How many years used: 46 Smoking risk assessment performed?: Yes Alcohol Intake: current Alcohol Intake frequency: a few times a month Alcohol type: beer and hard liquor Drug use: Never Substance use type: does not use Education Level: college Details: Some college/no degree Pets and animals: Yes Pets and animals: cat(s) and dog(s) Current gender identity: male What is your relationship status?: How often do you talk on the phone with friends or family?: decline to answer How often do you get together with friends or relatives?: decline to answer How often do you attend shinto or quaker services?: decline to answer Do you belong to any clubs or organized social groups?: decline to answer Panel score (0-1 are the most socially isolated patients): 1 What type of physical activity do you participate in: walking Duration: decline to answer Frequency: daily Radha/Zoroastrian: Druze Special radha needs: No Additional Social history: declines to answer Exam <Angela Woodall - Last Filed: 02/12/20 08:13> Narrative Exam Narrative: Constitutional: Alert and oriented x3. Appears stated age. Normal body habitus. Head: Normocephalic, no trauma. Eyes: Pupils PERRLA, Red reflex noted, EOM's intact. Eyelids symmetrical without lesions, discharge, or swelling. ENT: Bilateral TM's WNL, External ear normal to inspection, no mastoid TTP, swelling, or erythema, Nasal turbinates WNL, no nasal discharge. Normal dentition, Posterior pharynx WNL, no exudate. Chest: Tachycardia at a rate of 120, normal S1, S2, distal pulses intact. Resp: Lungs clear to auscultation bilaterally, no wheezes, rales, or rhonchi. Musculoskeletal: Normal gait, 5/5 strength to all four extremities. Skin: No suspicious rashes or lesions. Capillary refill less than 2 sec. Neurologic: Cranial nerves II-XII intact. Alert and oriented x 3. DTR's intact. Hematologic/Lymphatic: No ecchymosis, no lymphadenopathy. Course <Angela Woodall - Last Filed: 02/12/20 08:13> Vital Signs Vital signs: Vital Signs Temperature 36.4 C L 02/11/20 12:06 Pulse 128 H 02/11/20 12:06 Respiratory Rate 20 02/11/20 12:06 Blood Pressure 160/119 H 02/11/20 12:06 Pulse Oximetry 97 02/11/20 12:06 Temperature 36.4 C L 02/11/20 12:06 Temperature Source Skin 02/11/20 12:06 Pulse 128 H 02/11/20 12:06 Respiratory Rate 20 02/11/20 12:06 Respiratory Effort Non-Labored 02/11/20 12:11 Blood Pressure 160/119 H 02/11/20 12:06 Blood Pressure Position Sitting 02/11/20 12:06 Pulse Oximetry 97 02/11/20 12:06 Oxygen Delivery Method Room Air 02/11/20 12:06 Oxygen Flow Rate 0 02/11/20 12:06 Sign Out <Angela Woodall - Last Filed: 02/12/20 08:13> Sign Out Data: Sign Out Comment: Pending Repeat Troponin and BMP. Possible admission for hyponatremia. Last updated by Angela Woodall at 02/11/20 15:46
[2020-02-11 12:32] LABS: Abs Immature Grans 0.03 10^3/uL (0.0-0.06); Absolute Basophil Count 0.09 10^3/uL (0.0-0.2); Absolute Eosinophil Count 0.07 10^3/uL (0.0-0.7); Absolute Lymphocyte Count 1.71 10^3/uL (1.2-3.4); Absolute Monocyte Count 1.02 10^3/uL (0.1-0.8); Absolute Neutrophil Count 6.63 10^3/uL (1.2-6.7); Basophils % 0.9; Eosinophils % 0.7; HCT 49.2 % (40.0-50.0); HGB 17.1 g/dL (13.5-17.5); Immature Grans % 0.3; Lymphocytes % 17.9; MCH 30.5 pg (27.0-33.0); MCHC 34.8 % (32.0-36.0); MCV 87.7 fL (80-95); MPV 9.2 fL (8.0-11.0); Monocytes % 10.7; Neutrophils % 69.5; Nucleated RBC 0 %; Platelet Count 274 10^3/uL (130-400); RBC 5.61 10^6/uL (4.36-5.78); RDW 12.1 % (11.8-14.1); RDW-SD 39.3 fL; WBC 9.55 10^3/uL (4.4-10.8)
[2020-02-11] MEDS: nitroGLYcerin 2% 1 INCH/1 GM PKT TP (12:45)
[2020-02-11] MEDS: Aspirin 81 MG CHEW 324 MG CH (12:45)
[2020-02-11 13:12] LABS: Bilirubin Negative (Negative); Blood Trace-lysed (Negative); Clarity Clear (Clear); Glucose Negative (Negative); Ketones Negative (Negative); Leukocyte Esterase Negative (Negative); Nitrite Negative (Negative); Urobilinogen 0.2 EU/dL (Up TO 0.2)
[2020-02-11 13:24] LABS: Bacteria Rare HPF (Negative); Crystals Negative HPF (Negative); Epithelial Cells Rare HPF (Negative); Mucus Trace (Negative); RBC 0-2 HPF (0-2); WBC 0-2 HPF (0-5)
[2020-02-11 13:25] LABS: C & S Indicated? No
[2020-02-11 13:28] LABS: ALT 27 U/L (16-63); AST 36 U/L (15-37); Albumin 4.5 g/dL (3.4-5.0); Alkaline Phosphatase 73 U/L (46-116); BUN 14 mg/dL (7-18); Bilirubin, Total 0.7 mg/dL (0.2-1.0); CREATININE 1.36 mg/dL (0.70-1.30); Calcium 9.6 mg/dL (8.5-10.1); Chloride 90 mmol/L (98-107); Estimated GFR 52.11 (mL/min/1.73m2); Glucose 129 mg/dL (74-106); Magnesium 2.3 mg/dL (1.8-2.4); Potassium 3.9 mmol/L (3.5-5.1)
--- NOTE | 2020-02-11 13:30 | DI.RAD_ITS ---
EXAM: XR CHEST 2V PA LATERAL CLINICAL HISTORY: SOB. Shortness of breath TECHNIQUE: 2D digital imaging was performed. COMPARISON: None FINDINGS: Chest leads in place. Heart size normal. Mediastinum not widened. Lungs are clear. No infiltrates nor pleural effusions. Mild pectus excavatum noted. IMPRESSION: No acute pulmonary findings. DATA REPOSITORY: RADIATION DOSE DELIVERED:
[2020-02-11 13:34] LABS: Troponin I < 0.05 ng/mL (<0.06)
[2020-02-11 13:35] LABS: Sodium 124 mmol/L (136-145)
[2020-02-11] MEDS: Normal Saline 1,000 ML 1000 ML IV (13:45)
[2020-02-11 14:29] LABS: NT-proBNP 116 pg/mL (<300)
[2020-02-11 14:31] LABS: TSH (W/Ref FT4) 11.28 uIU/mL (0.36-3.74)
[2020-02-11] MEDS: Normal Saline 1,000 ML 250 ML IV (14:42)
[2020-02-11 14:50] LABS: FREE T4 1.31 ng/dL (0.76-1.46)
--- NOTE | 2020-02-11 15:00 | RT.EKG_ITS ---
APPROVED REPORT Exam: Resting ECG Patient Location: E HR:78 bpm ECG Measurements Heart Rate 78 AXIS ME 170 P 72 QRSd 89 QRS 52 QT 383 T 63 QTc 438 Conclusion Sinus rhythm...normal P axis, V-rate 60- 99
[2020-02-11 16:20] LABS: Anion Gap 5.4 mmol/L (3-11); BUN 12 mg/dL (7-18); CO2 29.6 mmol/L (21.0-32.0); CREATININE 1.37 mg/dL (0.70-1.30); Calcium 8.9 mg/dL (8.5-10.1); Chloride 95 mmol/L (98-107); Estimated GFR 51.67 (mL/min/1.73m2); Glucose 97 mg/dL (74-106); Potassium 3.7 mmol/L (3.5-5.1); Sodium 130 mmol/L (136-145)
[2020-02-11 16:32] LABS: Troponin I < 0.05 ng/mL (<0.06)
== END 2020-02-11 17:47 | disposition home or self-care (01) ==
PROVIDERS: Registered Nurse Emergency; Emergency Provider Physician Assistant
DX: E87.1 Hypo-osmolality and hyponatremia (principal); R06.09 Other forms of dyspnea; I10 Essential (primary) hypertension; J44.9 Chronic obstructive pulmonary disease, unspecified; Z87.891 Personal history of nicotine dependence
CPT/HCPCS: 36415; 80048; 80053; 93005; 96360; 96361; 99285; 71046; 81003; 81015; 83735; 83880; 84439; 84443; 84484; 85025; 93010

== ENCOUNTER 2020-02-25 02:33 | Outpatient (CLI) | payer MEDICARE, OTHER, SELFPAY ==
[2020-02-26 22:44] LABS: COVID-19 RT-PCR UVMMC Result Negative (Negative)
== END 2020-02-25 02:53 ==
PROVIDERS: Visit Provider Internal Medicine Cardiovascular Disease
DX: Z11.59 Encounter for screening for other viral diseases (principal); Z01.810 Encounter for preprocedural cardiovascular examination
CPT/HCPCS: U0003

== ENCOUNTER 2020-02-29 01:58 | Outpatient (CLI) | payer MEDICARE, OTHER, SELFPAY ==
--- NOTE | 2020-02-29 07:45 | DI.NM_ITS ---
APPROVED REPORT Exam: Exercise Treadmill Patient Location: Out-Patient Room/Bed: Stress Nurse: Cecilia Escalona RN BMI: 25.84 Baseline Rhythm: Sinus Rhythm Comment: occasional PVC Indications: WILD, Increased pulse. Medical History Medical History: Hypercholesterolemia, Tachycardia, Former smoker, Hypothyroidism, HTN Cardiac Medications: Losartan, Lisinopril Allergies: Penicillins Cardiac Risk Factors: HTN, Hyperlipidemia, Smoking (former) Previous Cardiac Procedures: None. Pretest Chest Pain Characteristics: None. Exercise History: Sedentary Physical Disabilities: Legs Lung Sounds: Clear to auscultation Heart Sounds: Regular Stress Test Details Test: Exercise stress testing was performed using a Juanito protocol. Nuclear Acquisition: Rest Tc-99m/Stress Tc-99m 1 day Rest Isotope: Tc-99m Sestamibi. Dose: 11.5 Date: 02/29/2020 Injection Time: 0930 Stress Isotope: Tc-99m Sestamibi. Dose: 36.1 Date: 02/29/2020 Injection Time: 1115 HR Resting HR Supine: 73 bpm Max Heart Rate (APMHR): 152.567562 bpm Resting HR Standin bpm Target HR (85% APMHR): 129.985256 bpm Max HR Achieved: 169 bpm % of APMHR: 111.18 Recovery HR: 99 bpm HR response to stress: Accelerated HR response to stress BP Resting BP Supine: 194/100 mmHg Resting BP Standin/102 mmHg Max BP: 218/100 mmHg Recovery BP: 198/102 mmHg BP response to stress: Normal blood pressure response to stress. Comment: Hypertensive at baseline. ECG Resting ECG: Sinus Rhythm Ectopy: occasional PVC. Stress ECG: Sinus Tachycardia ST Change: No significant ST segment changes noted. Arrhythmia: PVCs, couplets. Recovery ECG: Sinus Tachycardia Recovery ST Change: No significant ST segment changes noted. Recovery Arrhythmia: occasional PVCs. Clinical Reason for Termination: Leg pain Stress Symptoms: Leg Fatigue Exercise duration: 4 min52 sec Highest Stage Reached: Stage 2: 2.5 mph at 12% grade. Exercise capacity: 6.86 METs Stress ECG Conclusion 1. An EKG showed voltage for left ventricular hypertrophy 2. Patient exercised on the Juanito protocol and achieved a workload of 6.86 METS, stopping due to leg fatigue 3. Resting hypertension. Normal heart rate and blood pressure response to exercise. The patient ach ieved greater than 100% of predicted heart rate for age 4. Electrocardiographically there was no evidence of myocardial ischemia 5. There were no significant dysrhythmias Stress Test Summary STAGE Time (mins) Speed (mph) Grade (%) HR BP SYMPTOMS METS Supine 73 194/100 Standing 90 186/102 1 3 1.7 10 146 212/108 4.6 1 min recovery 156 218/100 3 min recovery 129 216/104 6 min recovery 99 198/102 MPI Conclusion Normal myocardial perfusion without evidence of ischemia or prior infarction Radiologist Interpretation Radiologist agrees with District Service Manager's Interpretation. Radiologist Interpretation by: Christal Neal MD Interpretation Date/Time: 03/01/2020 12:54:34
== END 2020-02-29 02:18 ==
DX: R06.09 Other forms of dyspnea (principal); I10 Essential (primary) hypertension; E78.5 Hyperlipidemia, unspecified; Z87.891 Personal history of nicotine dependence
CPT/HCPCS: 78452; 93016; 93018; 93017

== ENCOUNTER 2020-04-11 03:26 | Outpatient (CLI) | payer MEDICARE, OTHER, SELFPAY ==
[2020-04-11 09:08] LABS: Anion Gap 7.8 mmol/L (3-11); BUN 22 mg/dL (7-18); CO2 30.2 mmol/L (21.0-32.0); CREATININE 1.6 mg/dL (0.70-1.30); Calcium 9.4 mg/dL (8.5-10.1); Chloride 101 mmol/L (98-107); Glucose 98 mg/dL (74-106); Magnesium 2.2 mg/dL (1.8-2.4); Potassium 4.6 mmol/L (3.5-5.1); Sodium 139 mmol/L (136-145); TSH (W/Ref FT4) 23.15 uIU/mL (0.36-3.74)
[2020-04-11 09:47] LABS: FREE T4 1.06 ng/dL (0.76-1.46)
== END 2020-04-11 03:27 | disposition home or self-care (01) ==
LOC: LBO 03:27
DX: E03.9 Hypothyroidism, unspecified (principal); E87.1 Hypo-osmolality and hyponatremia; M79.662 Pain in left lower leg
CPT/HCPCS: 36415; 80048; 83735; 84439; 84443

== ENCOUNTER 2020-07-08 10:02 | Emergency (ER) | payer MEDICARE, OTHER, SELFPAY ==
[2020-07-08] VITALS (30 sets, daily range): BP systolic 155–247; BP diastolic 88–131; PULSE 50–91; RESP 10–22; TEMP 36.4; O2SAT 95–99
--- NOTE | 2020-07-08 10:00 | RT.EKG_ITS ---
APPROVED REPORT Exam: Resting ECG Reason for Exam: palpitations Patient Location: E HR:80 bpm ECG Measurements Heart Rate 80 AXIS [place] 152 P 69 QRSd 95 QRS 35 QT 372 T 52 QTc 430 Conclusion Sinus rhythm...normal P axis, V-rate 60- 99
--- NOTE | 2020-07-08 10:11 | W.ED.GENAD ---
Discharge Plan Disposition Patient Disposition: HOME Condition: Stable Discharge Details Clinical Impression: Heart palpitations Primary Care Provider: Char Martin ED Provider: Seferino Duke Home Meds and New Rx's Prescriptions: Continued atorvastatin 40 mg tablet 40 mg PO DAILY Qty: 90 RF: 3 levothyroxine 75 mcg tablet 75 mcg PO DAILY Qty: 90 RF: 3 lisinopril 10 mg tablet 10 mg PO DAILY Qty: 90 RF: 3 losartan 50 mg tablet 50 mg PO DAILY Qty: 90 RF: 3 aspirin 81 mg Tablet 81 mg PO DAILY RF: 0 Discharge Instructions Instructions: Heart Palpitations (ED) Additional Instructions: Your blood tests and ecg did now show any arrhythmia and it also did not show any evidence of a heart attack follow up with your primary care provider within 1 week if you feel more ill, have worsening pain or difficulty breathing return to the emergency department Medical Decision Making 69 yo male with hx of hypothyroidism, hypertension, hyperlipidemia, former smoker, comes in with 3 days of intermittent feeling as though his heart is fluttering which lasts 15-20 minutes and has happened approximately 6 times over 3 days. He had an episode this morning and noted some numbness in his left hand fingers. He currently denies any symptoms and denies ever having any chest pain or pressure, no upper back pain or abdomen pain and also no dyspnea. Denies fevers or cough. He has no deficits in sensation on exam, normal pulses in both hands, normal range of motion. Soft nontender abdomen. Clear lung sounds and no murmurs appreciated. His ekg shows no changes from prior and his symptoms of heart fluttering without dyspnea, diaphoresis, chest pain/pressure, or n/v seems atypical for acs but will further evaluate with troponin. No tearing back pain, no abrupt onset of symptoms or severe symptoms and no pulse deficits so doubt dissection. No tachycardia or hypoxia or evidence of dvt so doubt PE at this time. He could be going in and out of afib or aflutter, will keep on tele during his workup. He is noted to be hypertensive but given no current symptoms do not feel acute lowering is indicated, when he was here last his BP was high initially then decreased without intervention. If he is still hypertensive and has worrisome symptoms will treat with iv antihypertensives patient remains asymptomatic, bp decreased without intervention to 180/70, and has unremarkable labs and xray shows no acute findings. His xray does note pectus excavatum but has no other findings to suggest marfans syndrome or other connective tissue disorder and given he still has no symptoms do not feel cta for dissection indicated. Discussed findings with patient and feel he could be having episodes of afib or flutter. He is willing to try an outpatient equipment monitor phototypesetting. He has no interest in staying in the hospital and given his symptoms do not seem typical for acs feel this is reasonable. He is willing to stay for a delta troponin, will continue to monitor repeat troponin negative and he remains asymptomatic and bp is 160/70 now. Has holter monitor on now. Given atypical symptoms and reassuring workup feel he is safe for discharge. Return precautions given and advised to follow up with pcp Differential Diagnosis Differential Diagnosis: afib, aflutter, nstemi Medical Records Medical records reviewed: Yes I reviewed the patient's medical records. Imaging Data Radiologic Study: Attestation: I personally reviewed and interpreted this imaging study as follows: Imaging: X-Ray Radiologist's impression: no acute findings Lab Data Lab results reviewed: Yes I reviewed the patient's lab results. ECG Data Attestation: I personally reviewed and interpreted this ECG (s) as follows: Prior ECG tracings: available for review Interpretation: sinus rhythm, rate of 80, pr 152, qtc 430, no acute st t wave ischemic findings HPI General Mode of arrival: ambulatory. Date/Time Provider Initiated Documentation: 07/08/20 10:03. Limitations to Documentation: no limitations. Information obtained by: patient. History of Present Illness 69 year old M presents to the emergency department with the chief complaint of heart fluttering sensation, described as mild, Patient reports no radiation. Patient started experiencing this day(s) (3) and it has been intermittent. No relieving factors improve symptom(s), No exacerbating factors reported . Patient did receive the following treatments prior to arrival, none Related Data Home Medications Medication Instructions Recorded Confirmed atorvastatin 40 mg tablet 40 mg PO DAILY #90 tab 06/28/20 07/08/20 levothyroxine 75 mcg tablet 75 mcg PO DAILY #90 tab 06/28/20 07/08/20 lisinopril 10 mg tablet 10 mg PO DAILY #90 tab 06/28/20 07/08/20 losartan 50 mg tablet 50 mg PO DAILY #90 tab 06/28/20 07/08/20 aspirin 81 mg PO DAILY 07/08/20 07/08/20 Previous Rx's Medication Instructions Recorded atorvastatin 40 mg tablet 40 mg PO DAILY #90 tab 06/28/20 levothyroxine 75 mcg tablet 75 mcg PO DAILY #90 tab 06/28/20 lisinopril 10 mg tablet 10 mg PO DAILY #90 tab 06/28/20 losartan 50 mg tablet 50 mg PO DAILY #90 tab 06/28/20 Allergies Allergy/AdvReac Type Severity Reaction Status Date / Time Penicillins AdvReac Verified 07/08/20 10:10 General Stated Complaint: Palpitatns TERESITA: 2 Review of Systems All systems reviewed & are unremarkable except as noted in HPI and below Constitutional Constitutional: Denies chills, Denies fever(s) and Denies weakness Eyes Eyes: Denies loss of vision ENT Ears, Nose, Mouth, and Throat: Denies change in voice Cardiovascular Cardiovascular: Denies dyspnea Respiratory Respiratory: Denies cough and Denies dyspnea Gastrointestinal Gastrointestinal: Denies abdominal pain, Denies nausea and Denies vomiting Integumentary/Breasts Skin/Breast: Denies rash Neurologic Neurologic: Denies loss of vision and Denies weakness PFSH Medical History Anxiety BPH w/o urinary obs/LUTS COPD (chronic obstructive pulmonary disease) Pt. states he runs out of breath pretty quickly Essential hypertension (Unknown) History of chest pain Per CT records: EKG NSR without acute changes 05/05/2013, Stress Test:Extremely poor exercise capacity but negative stress test without EKG changes at 91% of maximum predicted heart rate for age. BP response normal, no arrhythmias detected; pharmalogic nuclear stress test might be useful to better exclude possible underlying ischemia in this patient with extremely poor exercise tolerance. 24 Holter Monitor done 06/01/13: SR with 87 PVCs noted. No runs noted. No pauses noted. No arrythmias. Cardiac Echo was noted as being ordered but none found in packet of Medical Records. (See scanned record- Dr. Eliazar Lovett) Hypercholesteremia Hypolipidemia Hypothyroidism Pain due to dental caries Pain of left calf Sinus tachycardia Tobacco abuse Smokes 1PPD QUIT 08/2019 Urinary frequency Surgical History History of tonsillectomy Family History Mother Asthma Father Heart disease Prostate cancer Brother No problems noted. Son No problems noted. Daughter No problems noted. Social History Smoking/Tobacco Use Status: Former Tobacco Use Tobacco: How many years used: 46 Smoking risk assessment performed?: Yes Alcohol Intake: current Alcohol Intake frequency: a few times a month Alcohol type: beer and hard liquor Drug use: Never Substance use type: does not use Education Level: college Details: Some college/no degree Pets and animals: Yes Pets and animals: cat(s) and dog(s) Current gender identity: male What is your relationship status?: How often do you talk on the phone with friends or family?: decline to answer How often do you get together with friends or relatives?: decline to answer How often do you attend jewish or christian services?: decline to answer Do you belong to any clubs or organized social groups?: decline to answer Panel score (0-1 are the most socially isolated patients): 1 What type of physical activity do you participate in: walking Duration: decline to answer Frequency: daily Radha/Alevism: Uatsdin Special radha needs: No Do you feel safe at home: Yes Do you feel safe in your relationship?: Yes Additional Social history: declines to answer Exam Const General: no acute distress Orientation: alert HENMT Head: normal to inspection Ears: external ears normal General nose exam: external nose normal Mouth: moist mucous membranes Eyes General: appearance normal, both eyes and all related structures Neck Neck: normal visual inspection Resp Effort & Inspection: normal respiratory effort and able to speak in complete sentences Cardio Rate: regular rate GI Palpation: soft and nontender Skin General skin exam: no rashes or lesions noted Neuro General: patient alert and patient oriented x3 Extrem General: normal to inspection Psych Mental Status: mental status grossly normal Course Vital Signs Vital signs: Vital Signs Temperature 36.4 C L 07/08/20 10:06 Pulse 86 07/08/20 10:06 Respiratory Rate 14 07/08/20 10:06 Blood Pressure 247/113 H 07/08/20 10:06 Pulse Oximetry 99 07/08/20 10:06 Temperature 36.4 C L 07/08/20 10:06 Temperature Source Skin 07/08/20 10:06 Pulse 86 07/08/20 10:06 Respiratory Rate 14 07/08/20 10:06 Blood Pressure 247/113 H 07/08/20 10:06 Blood Pressure Position Supine 07/08/20 10:06 Pulse Oximetry 99 07/08/20 10:06 Pain Level 1 07/08/20 10:06
--- NOTE | 2020-07-08 10:15 | DI.RAD_ITS ---
Exam(s) XR CHEST 2V PA LATERAL EXAM: XR CHEST 2V PA LATERAL CLINICAL HISTORY: chest palpitations TECHNIQUE: 2D digital imaging was performed. COMPARISON: CR XR CHEST 2V PA LATERAL from 02/11/2020 FINDINGS: MEDIASTINUM: Normal. HEART: Normal. PULMONARY VASCULATURE: Normal. LUNGS: Clear. Lungs are hyperinflated with flattened diaphragms suggesting underlying COPD. PLEURAL SPACE: No pleural effusion or pneumothorax. BONE:Within normal limits for the patient's age. There is a pectus excavatum deformity. OTHER FINDINGS:Normal. IMPRESSION: No acute pulmonary findings. DATA REPOSITORY: RADIATION DOSE DELIVERED:
[2020-07-08 10:19] LABS: Abs Immature Grans 0.01 10^3/uL (0.0-0.06); Absolute Basophil Count 0.13 10^3/uL (0.0-0.2); Absolute Eosinophil Count 0.27 10^3/uL (0.0-0.7); Absolute Lymphocyte Count 1.76 10^3/uL (1.2-3.4); Absolute Monocyte Count 0.91 10^3/uL (0.1-0.8); Absolute Neutrophil Count 4.99 10^3/uL (1.2-6.7); Basophils % 1.6; Eosinophils % 3.3; HCT 49.4 % (40.0-50.0); HGB 16.1 g/dL (13.5-17.5); Immature Grans % 0.1; Lymphocytes % 21.8; MCH 30.3 pg (27.0-33.0); MCHC 32.6 % (32.0-36.0); MCV 92.9 fL (80-95); MPV 9.8 fL (8.0-11.0); Monocytes % 11.3; Neutrophils % 61.9; Nucleated RBC 0 %; Platelet Count 222 10^3/uL (130-400); RBC 5.32 10^6/uL (4.36-5.78); RDW 13.2 % (11.8-14.1); WBC 8.07 10^3/uL (4.4-10.8)
[2020-07-08 10:35] LABS: PTT Activated 23.6 sec (21.0-27.5); Prothrombin Time 10.4 sec (9.3-11.0)
[2020-07-08 10:42] LABS: ALT 26 U/L (16-63); AST 22 U/L (15-37); Albumin 4.3 g/dL (3.4-5.0); Alkaline Phosphatase 89 U/L (46-116); Anion Gap 6.1 mmol/L (3-11); BUN 14 mg/dL (7-18); Bilirubin, Total 0.6 mg/dL (0.2-1.0); CO2 30.9 mmol/L (21.0-32.0); CREATININE 1.5 mg/dL (0.70-1.30); Calcium 9.1 mg/dL (8.5-10.1); Chloride 103 mmol/L (98-107); Estimated GFR 46.54 (mL/min/1.73m2); Glucose 101 mg/dL (74-106); Magnesium 2.3 mg/dL (1.8-2.4); Potassium 3.9 mmol/L (3.5-5.1); Sodium 140 mmol/L (136-145); TSH (W/Ref FT4) 20.84 uIU/mL (0.36-3.74); Total Protein 8.3 g/dL (6.4-8.2)
[2020-07-08 10:44] LABS: Troponin I < 0.05 ng/mL (<0.06)
[2020-07-08 11:01] LABS: FREE T4 0.96 ng/dL (0.76-1.46)
[2020-07-08 13:25] LABS: Troponin I < 0.05 ng/mL (<0.06)
== END 2020-07-08 14:25 | disposition home or self-care (01) ==
PROVIDERS: Emergency Provider Emergency Medicine
DX: R00.2 Palpitations (principal)
CPT/HCPCS: 80053; 93005; 99284; 71046; 83735; 84439; 84443; 84484; 85025; 85610; 85730; 93010; 93225; 99283

== ENCOUNTER 2020-07-08 11:30 | Outpatient (RCR) | payer MEDICARE, OTHER, SELFPAY ==
--- NOTE | 2020-07-08 12:30 | HOLTER_ITS ---
APPROVED REPORT Conclusion This is a 48-hour monitor ordered for indication of palpitations. Patient was in normal sinus rhythm for the majority of the recording with an average heart rate of 77 bpm. There were no episodes of ventricular tachycardia and rare (1%) PVCs. There was one, 3 beat run of SVT and rare PACs. There were no episodes of atrial fibrillation, no pauses greater than 3 seconds and no evidence of hi gh degree heart block. There were no patient triggered events.
== END 2020-08-01 23:59 | disposition home or self-care (01) ==
LOC: RT 11:30
PROVIDERS: Visit Provider Emergency Medicine
DX: R00.2 Palpitations (principal); I49.3 Ventricular premature depolarization; I47.2 Ventricular tachycardia
CPT/HCPCS: 93227; 93225; 93226

== ENCOUNTER 2020-11-28 03:14 | Outpatient (CLI) | payer MEDICARE, OTHER, SELFPAY ==
[2020-11-28 12:48] LABS: ALT 23 U/L (16-63); AST 20 U/L (15-37); Albumin 3.8 g/dL (3.4-5.0); Alkaline Phosphatase 91 U/L (46-116); Anion Gap 5.3 mmol/L (3-11); BUN 20 mg/dL (7-18); Bilirubin, Total 0.4 mg/dL (0.2-1.0); CO2 32.7 mmol/L (21.0-32.0); CREATININE 1.5 mg/dL (0.70-1.30); Calcium 8.9 mg/dL (8.5-10.1); Calculated LDL 105 mg/dL (<100); Chloride 100 mmol/L (98-107); Cholesterol 168 mg/dL (<200); Glucose 103 mg/dL (74-106); HDL Cholesterol 50 mg/dL (40-60); Potassium 4.2 mmol/L (3.5-5.1); Sodium 138 mmol/L (136-145); TSH (W/Ref FT4) 19.01 uIU/mL (0.36-3.74); Total Protein 7.1 g/dL (6.4-8.2); Triglyceride 67 mg/dL (<150)
[2020-11-28 13:15] LABS: FREE T4 0.95 ng/dL (0.76-1.46)
== END 2020-11-28 03:15 | disposition home or self-care (01) ==
LOC: LOS 03:15
DX: E05.90 Thyrotoxicosis, unspecified without thyrotoxic crisis or storm; I10 Essential (primary) hypertension; E78.00 Pure hypercholesterolemia, unspecified
CPT/HCPCS: 36415; 80053; 80061; 84439; 84443

== ENCOUNTER 2020-12-14 14:45 | Emergency (ER) | payer MEDICARE, OTHER, SELFPAY ==
[2020-12-14 15:35] VITALS: BP 124/77; PULSE 96; RESP 14; TEMP 36.9; O2SAT 98
[2020-12-14] MEDS: Lidocaine 2% Multi-Dose 50 ML VIAL (15:55)
--- NOTE | 2020-12-14 15:56 | W.ED.GENAD ---
Discharge Plan Disposition Patient Disposition: HOME Condition: Stable Discharge Details Clinical Impression: Laceration of left hand Primary Care Provider: Char Martin ED Provider: Seferino Duke Home Meds and New Rx's Prescriptions: Continued hydrochlorothiazide 25 mg tablet 25 mg PO QAM Qty: 90 RF: 3 amlodipine-benazepril 5-40 mg capsule 1 cap PO DAILY Qty: 90 RF: 3 atorvastatin 40 mg tablet 40 mg PO DAILY Qty: 90 RF: 3 levothyroxine 75 mcg tablet 75 mcg PO DAILY Qty: 90 RF: 3 aspirin 81 mg Tablet 81 mg PO DAILY RF: 0 Discharge Instructions Instructions: Laceration (ED), Skin Adhesive Care (ED) Additional Instructions: return in 7-10 days for possible suture removal return sooner if spreading redness of the skin, yellow/white discharge or severe pain return to the emergency department Medical Decision Making 70 yo male with hx of hld, htn, who comes in with laceration. He was using a gambling box person and it slipped injuring the left distal index finger, no falls or other injuries. He has a 2cm laceration of the distal anterior left index finger on the radial surface that is superficial, normal range of motion of all extremities and normal sensation. No findings to suggest neurovascular injury and no indication of tendon injury, will requires sutures. Wound is superficial and no foreign bodies on exam, doubt fracture so do not feel xray indicated wound closed after digital block and irrigation with 2 sutures and skin adhesive, no complications, will return in 7-10 days for likely suture removal Differential Diagnosis Differential Diagnosis: laceration, abrasion HPI General Mode of arrival: ambulatory. Date/Time Provider Initiated Documentation: 12/14/20 15:41. Limitations to Documentation: no limitations. Information obtained by: patient. History of Present Illness 70 year old M presents to the emergency department with the chief complaint of left index finger injury, described as mild, Quality is described as aching, Patient started experiencing this hour(s) (2) and it has been constant. No relieving factors improve symptom(s), No exacerbating factors reported . Patient notes no other symptoms.. Related Data Home Medications Medication Instructions Recorded Confirmed atorvastatin 40 mg tablet 40 mg PO DAILY #90 tab 06/28/20 12/14/20 levothyroxine 75 mcg tablet 75 mcg PO DAILY #90 tab 06/28/20 12/14/20 aspirin 81 mg PO DAILY 07/08/20 12/14/20 amlodipine 5 mg-benazepril 40 mg 1 cap PO DAILY #90 cap 09/13/20 12/14/20 capsule hydrochlorothiazide 25 mg tablet 25 mg PO QAM #90 tab 09/13/20 12/14/20 Previous Rx's Medication Instructions Recorded atorvastatin 40 mg tablet 40 mg PO DAILY #90 tab 06/28/20 levothyroxine 75 mcg tablet 75 mcg PO DAILY #90 tab 06/28/20 amlodipine 5 mg-benazepril 40 mg 1 cap PO DAILY #90 cap 09/13/20 capsule hydrochlorothiazide 25 mg tablet 25 mg PO QAM #90 tab 09/13/20 Allergies Allergy/AdvReac Type Severity Reaction Status Date / Time Penicillins AdvReac Verified 12/14/20 15:39 General Stated Complaint: Laceration TERESITA: 3 Review of Systems All systems reviewed & are unremarkable except as noted in HPI and below Constitutional Constitutional: Denies chills, Denies fever(s) and Denies weakness ENT Ears, Nose, Mouth, and Throat: Denies change in voice Cardiovascular Cardiovascular: Denies chest pain and Denies dyspnea Respiratory Respiratory: Denies cough and Denies dyspnea Gastrointestinal Gastrointestinal: Denies abdominal pain, Denies nausea and Denies vomiting Musculoskeletal Musculoskeletal: Denies joint swelling Integumentary/Breasts Skin/Breast: Denies rash Neurologic Neurologic: Denies weakness [facility] Medical History (Updated 12/14/20 @ 16:11 by Seferino Duke MD) Anxiety BPH w/o urinary obs/LUTS COPD (chronic obstructive pulmonary disease) Pt. states he runs out of breath pretty quickly Essential hypertension (Unknown) History of chest pain Per CT records: EKG NSR without acute changes 05/05/2013, Stress Test:Extremely poor exercise capacity but negative stress test without EKG changes at 91% of maximum predicted heart rate for age. BP response normal, no arrhythmias detected; pharmalogic nuclear stress test might be useful to better exclude possible underlying ischemia in this patient with extremely poor exercise tolerance. 24 Holter Monitor done 06/01/13: SR with 87 PVCs noted. No runs noted. No pauses noted. No arrythmias. Cardiac Echo was noted as being ordered but none found in packet of Medical Records. (See scanned record- Dr. Eliazar Lovett) Hypercholesteremia Hyperthyroidism Hypolipidemia Hypothyroidism Pain due to dental caries Pain of left calf Sinus tachycardia Tobacco abuse Smokes 1PPD QUIT 08/2019 Urinary frequency Surgical History History of tonsillectomy Family History Mother Asthma Father Heart disease Prostate cancer Brother No problems noted. Son No problems noted. Daughter No problems noted. Social History Smoking/Tobacco Use Status: Former Tobacco Use Tobacco: How many years used: 46 Smoking risk assessment performed?: Yes Alcohol Intake: current Alcohol Intake frequency: a few times a month Alcohol type: beer and hard liquor Drug use: Never Substance use type: does not use Education Level: college Details: Some college/no degree Pets and animals: Yes Pets and animals: cat(s) and dog(s) Current gender identity: male What is your relationship status?: How often do you talk on the phone with friends or family?: decline to answer How often do you get together with friends or relatives?: decline to answer How often do you attend hindu or buddhist services?: decline to answer Do you belong to any clubs or organized social groups?: decline to answer Panel score (0-1 are the most socially isolated patients): 1 What type of physical activity do you participate in: walking Duration: decline to answer Frequency: daily Radha/Jehovah'S Witness: Cheondoism Special radha needs: No Do you feel safe at home: Yes Do you feel safe in your relationship?: Yes Additional Social history: declines to answer Exam Const General: no acute distress Orientation: alert [facility] Head: normal to inspection Ears: external ears normal General nose exam: external nose normal Mouth: moist mucous membranes Eyes General: appearance normal, both eyes and all related structures Neck Neck: normal visual inspection Resp Effort & Inspection: normal respiratory effort and able to speak in complete sentences Cardio Rate: regular rate Skin General skin exam: no rashes or lesions noted Neuro General: patient alert and patient oriented x3 Extrem General: full ROM Psych Mental Status: mental status grossly normal Course Vital Signs Vital signs: Vital Signs Temperature 36.9 C 12/14/20 15:35 Pulse 96 H 12/14/20 15:35 Respiratory Rate 14 12/14/20 15:35 Blood Pressure 124/77 12/14/20 15:35 Pulse Oximetry 98 12/14/20 15:35 Temperature 36.9 C 12/14/20 15:35 Temperature Source Skin 12/14/20 15:35 Pulse 96 H 12/14/20 15:35 Respiratory Rate 14 12/14/20 15:35 Respiratory Effort Non-Labored 12/14/20 15:41 Blood Pressure 124/77 12/14/20 15:35 Blood Pressure Position Sitting 12/14/20 15:35 Pulse Oximetry 98 12/14/20 15:35 Oxygen Delivery Method Room Air 12/14/20 15:35 Oxygen Flow Rate 0 12/14/20 15:35 Pain Level 1 12/14/20 15:35 Procedures Laceration Laceration 1: Site: hand Side (If applicable): left Size (cm): 2 Description: linear Depth: simple, single layer Local Anesthetic: Lidocaine 2% Amount of anesthesia used (mL): 5 Pre-repair: wound explored and irrigated extensively Skin layer closed with: nylon Size (cm): 5-0 Number of sutures: 2 Technique: simple, interrupted (and skin adhesive) PAWSS Have you Been Recently Intoxicated or Drunk Within the Last 30 days?: No Have you Ever Experienced Previous Episodes of Alcohol Withdrawal?: No Have you ever Experienced Withdrawal Seizures?: No Have you ever Experienced Delirium Tremens(DT)s?: No Have you ever undergone Alcohol Rehabilitation Treatment (i.e, inpt ot outpatient treatment programs)?: No Have you ever Experienced Blackouts?: No Have you ever Combined Alcohol with other Downers within the last 90 days?: No Have you ever Combined Alcohol with any other Substance of Abuse during the last 90 days?: No Positive Blood Alcohol level on Presentation? [PCS.BAL]: No Evidence of Increased Autonomic Activity (i.e. HR>120, tremor, sweating, agitation, nausea)?: No Result: 0
== END 2020-12-14 16:38 | disposition home or self-care (01) ==
PROVIDERS: Emergency Provider Emergency Medicine
DX: S61.211A Laceration without foreign body of left index finger without damage to nail, initial encounter (principal); W26.0XXA Contact with knife, initial encounter
CPT/HCPCS: 12001; 90471

== ENCOUNTER 2021-01-02 11:57 | Emergency (ER) | payer MEDICARE, OTHER, SELFPAY ==
--- NOTE | 2021-01-02 12:00 | RT.EKG_ITS ---
APPROVED REPORT Exam: Resting ECG Reason for Exam: Tachycardia Patient Location: E HR:119 bpm ECG Measurements Heart Rate 119 AXIS VT 115 P 71 QRSd 90 QRS 84 QT 314 T -18 QTc 442 Conclusion Sinus tachycardia...rate> 99 Probable left atrial enlargement...P >50mS, <-0.10mV V1 Probable left ventricular hypertrophy...multiple LVH criteria I have reviewed and interpreted ECG and agree with software generated interpretation.
[2021-01-02 12:01] VITALS: BP 140/97; PULSE 121; RESP 14; TEMP 36.3
--- NOTE | 2021-01-02 12:13 | ED.GENADUL_ITS ---
Discharge Plan Disposition Patient Disposition: HOME Condition: Improving Discharge Details Clinical Impression: Hyponatremia, Hypothyroidism Primary Care Provider: Char Martin ED Provider: Angela Woodall Home Meds and New Rx's Prescriptions: Continued amlodipine-benazepril 5-40 mg capsule 1 cap PO DAILY Qty: 90 RF: 3 atorvastatin 40 mg tablet 40 mg PO DAILY Qty: 90 RF: 3 levothyroxine 75 mcg tablet 75 mcg PO DAILY Qty: 90 RF: 3 aspirin 81 mg Tablet 81 mg PO DAILY RF: 0 No Action hydrochlorothiazide 25 mg tablet 25 mg PO QAM Qty: 90 RF: 3 Discharge Instructions Instructions: Hyponatremia (ED), Hypothyroidism (ED) Additional Instructions: At this time I do recommend decreasing your hydrochlorothiazide dose 0.5 mg. Take half a tablet daily. I did inform your PCP of the labs today. Please continue to take your medications as previously prescribed. Please keep yourself hydrated. Follow up with primary care provider in 3-5 days. Return to ED sooner if any worsening cramps, chest pain, continued nausea vomiting, fever or concerns. Increase oral fluids consider drinking electrolyte drinks along with water to prevent dehydration. Please discuss referral to endocrinology with your PCP as well. Referrals: Andrew Owens [OSTEOPATHIC DOCTOR] - Char Martin NP [Primary Care Provider] - 5 days Oma Chang [PH[employer] H[employer]IVER] - Discharge Data Discharge Date/Time-TO BE ENTERED AT DEPARTURE: 01/02/21 14:54 Medical Decision Making 70-year-old male with history of hyponatremia presents to the ER with muscle cramps, nausea vomiting after an argument with his prior to arrival. He reports muscle cramps got worse 2 days ago. He denies any chest pain shortness of breath is at baseline he does have a history of COPD. He is also concerned about his blood pressure over the last couple of days which has been elevated. Upon initial presentation to the ER his blood pressure is 140/97. On medication record review does have a history of hyponatremia. Initial work-up ordered including EKG, troponin, CBC, CMP, lipase, urinalysis. CBC is largely unremarkable, absolute neutrophil 7.39, CMP does show hyponatremia sodium 129, chloride 90 potassium 3.8 glucose 127, urinalysis shows protein 30, trace blood RBCs 3-5. TSH is pending at this time lipase within n ormal limits 201. Normal saline 1 L ordered at 350 an hour. Will discuss findings with patient. Discussed lab results with patient who verbalized understanding. He reports that he has an appointment with his PCP this month and will discuss with her referral to endocrinology. I did discuss his TSH level he does report that he is taking atorvastatin and levothyroxine as directed. I do recommend at this time decreasing his hydrochlorothiazide to 12.5 mg tension of 25 mg. 1408: Contact made with PCP regarding decreasing the hydrochlorothiazide dose and patient's request for referral for endocrinology. Patient instructed to follow-up with PCP and decreasing hydrochlorothiazide 12 mg. Patient verbalized understanding. At this time I do suspect dehydration with hyponatremia possible involvement of hypothyroidism. Upon my reevaluation heart rate 98. Patient discharged in department stable condition, alert and oriented. This text was generated using [employer]and[employer] system, please disregard any oddities of phrase or misspellings. HPI General Mode of arrival: ambulatory . Date/Time Provider Initiated Documentation: 01/02/21 12:04 . Limitations to Documentation: no limitations . Information obtained by: patient, RN notes reviewed and old records reviewed . HPI Narrative: 60-year-old male past medical history hypertension, hypothyroidism, tachycardia, anxiety COPD former smoker presents to the ER with a chief complaint of muscle cramps which has been ongoing and worsening 2 days, one episode nausea and vomiting. Patient denies any chest pain, he reports abdominal cramping with the spasms, and baseline shortness of breath due to COPD. He does mention having a argument with his prior to onset of symptoms today. Patient takes amlodipine for s benazepril 40 mg capsule which he did take this morning, baby aspirin, hydrochlorothiazide 25 1 tablet. Related Data Home Medications Medication Instructions Recorded Confirmed atorvastatin 40 mg tablet 40 mg PO DAILY #90 tab 06/28/20 01/02/21 levothyroxine 75 mcg tablet 75 mcg PO DAILY #90 tab 06/28/20 12/14/20 aspirin 81 mg PO DAILY 07/08/20 01/02/21 amlodipine 5 mg-benazepril 40 mg 1 cap PO DAILY #90 cap 09/13/20 01/02/21 capsule hydrochlorothiazide 25 mg tablet 25 mg PO QAM #90 tab 09/13/20 01/02/21 Previous Rx's Medication Instructions Recorded atorvastatin 40 mg tablet 40 mg PO DAILY #90 tab 06/28/20 levothyroxine 75 mcg tablet 75 mcg PO DAILY #90 tab 06/28/20 amlodipine 5 mg-benazepril 40 mg 1 cap PO DAILY #90 cap 09/13/20 capsule hydrochlorothiazide 25 mg tablet 25 mg PO QAM #90 tab 09/13/20 Allergies Allergy/AdvReac Type Severity Reaction Status Date / Time Penicillins AdvReac Verified 01/02/21 12:09 General Stated Complaint: Nausea/Vomit/Diar TERESITA: 3 Review of Systems All systems reviewed & are unremarkable except as noted in HPI and below Constitutional Constitutional: Denies chills and Denies fever(s) Cardiovascular Cardiovascular: Denies chest pain, Reports rapid heart rate and Reports dyspnea Respiratory Respiratory: Denies cough and Reports dyspnea Gastrointestinal Gastrointestinal: Reports abdominal pain (cramping), Denies diarrhea, Reports nausea and Reports vomiting Genitourinary Genitourinary: Reports difficulty urinating (Hx BPH, at baseline) Musculoskeletal Musculoskeletal: Reports as per HPI, Reports muscle cramps (Intermittant leg cramps, and arm cramps) and Reports stiffness PFSH Medical History Anxiety BPH w/o urinary obs/LUTS COPD (chronic obstructive pulmonary disease) Pt. states he runs out of breath pretty quickly Essential hypertension (Unknown) History of chest pain Per CT records: EKG NSR without acute changes 05/05/2013, Stress Test:Extremely poor exercise capacity but negative stress test without EKG changes at 91% of maximum predicted heart rate for age. BP response normal, no arrhythmias detected; pharmalogic nuclear stress test might be useful to better exclude possible underlying ischemia in this patient with extremely poor exercise tolerance. 24 Holter Monitor done 06/01/13: SR with 87 PVCs noted. No runs noted. No pauses noted. No arrythmias. Cardiac Echo was noted as being ordered but none found in packet of Medical Records. (See scanned record- Dr. Eliazar Lovett) Hypercholesteremia Hyperthyroidism Hypolipidemia Hypothyroidism Pain due to dental caries Pain of left calf Sinus tachycardia Tobacco abuse Smokes 1PPD QUIT 08/2019 Urinary frequency Surgical History History of tonsillectomy Family History Mother Asthma Father Heart disease Prostate cancer Brother No problems noted. Son No problems noted. Daughter No problems noted. Social History Smoking/Tobacco Use Status: Former Tobacco Use Tobacco: How many years used: 46 Smoking risk assessment performed?: Yes Alcohol Intake: current Alcohol Intake frequency: a few times a month Alcohol type: beer and hard liquor Drug use: Occasionally Substance use type: marijuana Education Level: college Details: Some college/no degree Pets and animals: Yes Pets and animals: cat(s) and dog(s) Current gender identity: male What is your relationship status?: How often do you talk on the phone with friends or family?: decline to answer How often do you get together with friends or relatives?: decline to answer How often do you attend orthodoxy or rastafarian services?: decline to answer Do you belong to any clubs or organized social groups?: decline to answer Panel score (0-1 are the most socially isolated patients): 1 What type of physical activity do you participate in: walking Duration: decline to answer Frequency: daily Radha/Congregational: Adventism Special radha needs: No Do you feel safe at home: Yes Do you feel safe in your relationship?: Yes Exam Narrative Exam Narrative: Constitutional: Alert and oriented x3. Appears stated age. Normal body habitus. Head: Normocephalic, no trauma. Eyes: Pupils PERRL, Red reflex noted, EOM's intact. Eyelids symmetrical without lesions, discharge, or swelling. ENT: Bilateral TM's WNL, External ear normal to inspection, no mastoid TTP, swelling, or erythema, Nasal turbinates WNL, no nasal discharge. Normal dentition, Posterior pharynx WNL, no exudate. Chest: Tachycardic, normal S1, S2, distal pulses intact. Resp: Lungs diminished to auscultation bilaterally, no wheezes, rales, or rhonchi. Abdomen: Soft, non-distended, Normoactive bowel sounds all 4 quads. Musculoskeletal: Normal gait, 5/5 strength to all four extremities. Does have muscle cramps intermittently noted in triage upon initial exam to his right forearm. Did resolve spontaneously without intervention. Skin: No suspicious rashes or lesions. Capillary refill less than 2 sec. Neurologic: Cranial nerves II-XII intact. Alert and oriented x 3. Motor: No deficits noted. Sensory: Intact bilaterally all 4 extremities. Reflexes: DTR's intact bilaterally.. Hematologic/Lymphatic: No ecchymosis, no lymphadenopathy. Course Vital Signs Vital signs: Vital Signs Temperature 36.3 C L 01/02/21 12:01 Pulse 121 H 01/02/21 12:01 Respiratory Rate 14 01/02/21 12:01 Blood Pressure 140/97 H 01/02/21 12:01 Temperature 36.3 C L 01/02/21 12:01 Temperature Source Tympanic 01/02/21 12:01 Pulse 121 H 01/02/21 12:01 Respiratory Rate 14 01/02/21 12:01 Respiratory Effort Non-Labored 01/02/21 12:07 Blood Pressure 140/97 H 01/02/21 12:01 Oxygen Delivery Method Room Air 01/02/21 12:01 Oxygen Flow Rate 0 01/02/21 12:01 Pain Level 4 01/02/21 12:01 Comment 01/02/21 12:01
[2021-01-02 12:43] LABS: Abs Immature Grans 0.03 10^3/uL (0.0-0.06); Absolute Basophil Count 0.11 10^3/uL (0.0-0.2); Absolute Eosinophil Count 0.09 10^3/uL (0.0-0.7); Absolute Lymphocyte Count 1.63 10^3/uL (1.2-3.4); Absolute Neutrophil Count 7.39 10^3/uL (1.2-6.7); Basophils % 1.1; Eosinophils % 0.9; HCT 49.5 % (40.0-50.0); HGB 16.5 g/dL (13.5-17.5); Immature Grans % 0.3; Lymphocytes % 16.2; MCH 29.3 pg (27.0-33.0); MCHC 33.3 % (32.0-36.0); MCV 87.8 fL (80-95); MPV 9.6 fL (8.0-11.0); Neutrophils % 73.5; Nucleated RBC 0 %; Platelet Count 298 10^3/uL (130-400); RBC 5.64 10^6/uL (4.36-5.78); RDW 12.6 % (11.8-14.1); RDW-SD 40.8 fL; WBC 10.05 10^3/uL (4.4-10.8)
[2021-01-02 12:44] LABS: Bilirubin Negative (Negative); Blood Trace-intact (Negative); Clarity Clear (Clear); Glucose Negative (Negative); Ketones Negative (Negative); Leukocyte Esterase Negative (Negative); Nitrite Negative (Negative); Specific Gravity 1.025 (1.005-1.025); Urobilinogen 0.2 EU/dL (Up TO 0.2); pH 6.5 (5-8)
[2021-01-02 12:51] LABS: WBC 0-2 HPF (0-5)
[2021-01-02 12:52] LABS: Bacteria Rare HPF (Negative); C & S Indicated? No; Casts 0-2 Hyaline LPF (Negative); Crystals Negative HPF (Negative); Epithelial Cells Rare HPF (Negative); Lipase 201 U/L (73-393); Mucus Trace (Negative)
[2021-01-02 12:57] LABS: ALT 26 U/L (16-63); AST 31 U/L (15-37); Albumin 4.9 g/dL (3.4-5.0); Alkaline Phosphatase 93 U/L (46-116); Anion Gap 9.1 mmol/L (3-11); BUN 12 mg/dL (7-18); Bilirubin, Total 0.7 mg/dL (0.2-1.0); CO2 29.9 mmol/L (21.0-32.0); CREATININE 1.6 mg/dL (0.70-1.30); Calcium 9.5 mg/dL (8.5-10.1); Chloride 90 mmol/L (98-107); Estimated GFR 43.07 (mL/min/1.73m2); Glucose 127 mg/dL (74-106); Magnesium 2.3 mg/dL (1.8-2.4); Potassium 3.8 mmol/L (3.5-5.1); Sodium 129 mmol/L (136-145); Total Protein 8.8 g/dL (6.4-8.2)
[2021-01-02] MEDS: Normal Saline 250 ML 350 ML IV (12:57)
[2021-01-02 12:58] LABS: Troponin I < 0.05 ng/mL (<0.06)
[2021-01-02 13:06] LABS: TSH (W/Ref FT4) 31.31 uIU/mL (0.36-3.74)
[2021-01-02 13:31] LABS: FREE T4 1.07 ng/dL (0.76-1.46)
[2021-01-02] MEDS: Normal Saline 500 ML IV (14:31)
== END 2021-01-02 14:54 | disposition home or self-care (01) ==
PROVIDERS: Emergency Provider Registered Nurse Emergency
DX: E87.1 Hypo-osmolality and hyponatremia (principal); E03.9 Hypothyroidism, unspecified; R00.0 Tachycardia, unspecified
CPT/HCPCS: 80053; 83690; 93005; 96360; 96361; 99284; 81003; 81015; 83735; 84439; 84443; 84484; 85025; 93010

== ENCOUNTER 2021-01-09 02:01 | Outpatient (CLI) | payer MEDICARE, OTHER, SELFPAY ==
[2021-01-09 12:39] LABS: HCT 46.2 % (40.0-50.0); MCH 29.5 pg (27.0-33.0); MCHC 32.5 % (32.0-36.0); MCV 90.8 fL (80-95); MPV 10.4 fL (8.0-11.0); Platelet Count 273 10^3/uL (130-400); RBC 5.09 10^6/uL (4.36-5.78); RDW 12.5 % (11.8-14.1); RDW-SD 41.6 fL; WBC 7.77 10^3/uL (4.4-10.8)
[2021-01-09 13:14] LABS: Sodium, Urine 14 mmol/L
[2021-01-09 13:16] LABS: ALT 36 U/L (16-63); AST 35 U/L (15-37); Albumin 4.4 g/dL (3.4-5.0); Alkaline Phosphatase 76 U/L (46-116); Anion Gap 5.7 mmol/L (3-11); BUN 18 mg/dL (7-18); Bilirubin, Total 0.6 mg/dL (0.2-1.0); CO2 30.3 mmol/L (21.0-32.0); CREATININE 1.4 mg/dL (0.70-1.30); Calcium 9.2 mg/dL (8.5-10.1); Chloride 100 mmol/L (98-107); Creatine Kinase 288 U/L (39-308); Estimated GFR 50.25 (mL/min/1.73m2); FREE T4 1.15 ng/dL (0.76-1.46); Glucose 101 mg/dL (74-106); Potassium 4.7 mmol/L (3.5-5.1); Sodium 136 mmol/L (136-145); TSH 11.17 uIU/mL (0.36-3.74); Total Protein 7.4 g/dL (6.4-8.2)
[2021-01-09 16:31] LABS: T3,Free 2.9 pg/mL (2.8-5.3)
== END 2021-01-09 02:02 | disposition home or self-care (01) ==
LOC: LOS 02:01
PROVIDERS: Visit Provider Family Medicine
DX: E03.9 Hypothyroidism, unspecified (principal); E87.1 Hypo-osmolality and hyponatremia; I10 Essential (primary) hypertension; N18.9 Chronic kidney disease, unspecified
CPT/HCPCS: 36415; 80053; 82550; 85027; 84300; 84439; 84443; 84481

== ENCOUNTER 2021-03-06 02:47 | Outpatient (CLI) | payer MEDICARE, OTHER, SELFPAY ==
[2021-03-06 08:59] LABS: Anion Gap 7.4 mmol/L (3-11); BUN 24 mg/dL (7-18); CO2 30.6 mmol/L (21.0-32.0); CREATININE 1.6 mg/dL (0.70-1.30); Chloride 103 mmol/L (98-107); Estimated GFR 43.07 (mL/min/1.73m2); Glucose 95 mg/dL (74-106); Potassium 4.4 mmol/L (3.5-5.1); Sodium 141 mmol/L (136-145); TSH (W/Ref FT4) 4.42 uIU/mL (0.36-3.74)
[2021-03-06 09:16] LABS: FREE T4 1.12 ng/dL (0.76-1.46)
[2021-03-06 17:34] LABS: T3,Free 2.9 pg/mL (2.8-5.3)
== END 2021-03-06 02:48 | disposition home or self-care (01) ==
LOC: LBO 02:47
PROVIDERS: Family Medicine
DX: E03.9 Hypothyroidism, unspecified (principal); N18.9 Chronic kidney disease, unspecified; E78.00 Pure hypercholesterolemia, unspecified
CPT/HCPCS: 36415; 80048; 84439; 84443; 84481

== ENCOUNTER 2021-08-04 16:12 | Outpatient (CLI) | payer MEDICARE, OTHER, SELFPAY ==
[2021-08-04 16:01] LABS: CREATININE 1.3 mg/dL (0.70-1.30); Estimated GFR 54.73 (mL/min/1.73m2)
== END 2021-08-04 16:13 | disposition home or self-care (01) ==
LOC: LBO 16:26
PROVIDERS: Visit Provider Nurse Practitioner
DX: U07.1 COVID-19 (principal)
CPT/HCPCS: 36415; 82565

== ENCOUNTER 2021-08-28 03:36 | Outpatient (CLI) | payer MEDICARE, OTHER, SELFPAY ==
[2021-08-28 13:26] LABS: Anion Gap 12.2 mmol/L (3-11); BUN 20 mg/dL (7-18); CO2 26.8 mmol/L (21.0-32.0); CREATININE 1.4 mg/dL (0.70-1.30); Calcium 9.3 mg/dL (8.5-10.1); Chloride 101 mmol/L (98-107); Glucose 97 mg/dL (74-106); Potassium 4.4 mmol/L (3.5-5.1); Sodium 140 mmol/L (136-145); TSH (W/Ref FT4) 2.39 uIU/mL (0.36-3.74)
[2021-08-29 09:45] LABS: PSA, Screening 1.2 ng/mL (<=6.5)
== END 2021-08-28 03:37 | disposition home or self-care (01) ==
LOC: LOS 03:37
DX: E03.9 Hypothyroidism, unspecified (principal); E87.1 Hypo-osmolality and hyponatremia; N18.9 Chronic kidney disease, unspecified; N40.0 Benign prostatic hyperplasia without lower urinary tract symptoms; Z12.5 Encounter for screening for malignant neoplasm of prostate
CPT/HCPCS: 36415; 80048; 84153; 84443

== ENCOUNTER 2022-08-10 13:35 | Emergency (ER) | payer MEDICARE, OTHER, SELFPAY ==
[2022-08-10] VITALS (12 sets, daily range): BP systolic 156–180; BP diastolic 77–88; PULSE 47–62; RESP 7–20; TEMP 36.3; O2SAT 94–100
--- NOTE | 2022-08-10 13:45 | RT.EKG_ITS ---
APPROVED REPORT Exam: Resting ECG Reason for Exam: HTN Patient Location: E HR:55 bpm ECG Measurements Heart Rate 55 AXIS MA 165 P 78 QRSd 93 QRS 81 QT 420 T 69 QTc 401 Conclusion Sinus bradycardia...rate< 60 sinus bradycardia, normal axis, normal intervals, non ischemic
--- NOTE | 2022-08-10 14:00 | DI.RAD_ITS ---
Exam(s) XR CHEST 2V PA LATERAL EXAM: XR CHEST 2V PA LATERAL CLINICAL HISTORY: chest tightness TECHNIQUE: 2D digital imaging was performed of the chest. Two images were obtained. PA and lateral views were obtained. COMPARISON: CR XR CHEST 2V PA LATERAL from 07/08/2020 FINDINGS: MEDIASTINUM: Normal. HEART: Normal. PULMONARY VASCULATURE: Normal. LUNGS: Clear. PLEURAL SPACE: No pleural effusion or pneumothorax. BONE:Within normal limits for the patient's age. OTHER FINDINGS:There is a pectus excavatum deformity. IMPRESSION: No acute pulmonary findings. DATA REPOSITORY: RADIATION DOSE DELIVERED:
--- NOTE | 2022-08-10 14:13 | W.ED.GENAD ---
Discharge Plan Disposition Patient Disposition: Home Discharge Details Clinical Impression: Chest pressure Primary Care Provider: Isauro Diallo ED Provider: Jonas Beck Home Meds and New Rx's Prescriptions: New clonazepam 0.5 mg tablet 0.5 mg PO DAILY PRNQty: 10 0RF Rx Instructions: prn severe anxiety No Action albuterol sulfate 90 mcg/actuation HFA aerosol inhaler 2 puff inhalation Q6H PRN (Reason: shortness of breath or wheezing) Qty: 8.5 0RF (DME) Aerochamber MV Spacer See Rx Instructions .Route Qty: 1 0RF Rx Instructions: As directed amlodipine-benazepril 5-40 mg capsule 1 cap PO DAILY Qty: 90 1RF atorvastatin 40 mg tablet 40 mg PO DAILY Qty: 90 3RF atenolol 25 mg tablet 25 mg PO DAILY Qty: 90 3RF levothyroxine 100 mcg tablet See Rx Instructions .ROUTE .COMPLEX Qty: 90 1RF Dose Instruction: TAKE ONE TABLET BY MOUTH EVERY DAY Rx Instructions: TAKE ONE TABLET BY MOUTH EVERY DAY aspirin 81 mg Tablet 81 mg PO DAILY Discharge Instructions Instructions: Chest Pain (ED), Anxiety (ED) Medical Decision Making 71-year-old male history of intermittent hypertension, known thoracic aortic aneurysm, presents with worsening anxiety and panic attack symptomatology over the past several days in the setting of social stressors regarding his family specifically brother and elderly parents who have had recent hospitalizations. Patient reports panic symptoms, decreased sleep and worsening baseline anxiety. No SI no HI. Patient is calm and appropriate interactive. Patient is alert oriented. Patient is here accompanied by his . Patient has good social support. No shortness of breath. Hemodynamically stable noted to be hypertense on arrival. Likely symptomatology is related to anxiety and stress low suspicion for ACS expanding aortic aneurysm or aortic dissection. Low suspicion for PE pneumothorax pneumonia or intra-abdominal process. Will obtain screening labs chest x-ray troponin EKG. Have offered patient prescription for rescue clonazepam to be used in severe cases of anxiety. Patient amenable to plan. Will likely be discharged home pending reassess 3: 34 patient resting comfortably no acute distress Labs and imaging unremarkable. Patient feeling much better. HPI General Date/Time Provider Initiated Documentation: 08/10/22 13:36. HPI Narrative: 71-year-old male presents with anxiety in the setting of family social issues over the past several weeks in particular, increased stress and decreased sleep. Denies SI denies HI. History of depression and anxiety in the past. Intermittent hypertension and known thoracic aneurysm. Has felt some tightness in his epigastrium and chest over the last several days in the setting of increased emotional stress Related Data Home Medications Medication Instructions Recorded Confirmed aspirin 81 mg tablet 81 mg PO DAILY 07/08/20 08/10/22 amlodipine 5 mg-benazepril 40 mg 1 cap PO DAILY #90 caps 01/26/22 08/10/22 capsule atenolol 25 mg tablet 25 mg PO DAILY #90 tabs 03/12/22 08/10/22 atorvastatin 40 mg tablet 40 mg PO DAILY #90 tabs 03/12/22 08/10/22 albuterol sulfate 90 mcg/actuation 2 puff inhalation Q6H PRN 07/02/22 08/10/22 aerosol inhaler shortness of breath or wheezing #8.5 grams inhalational spacing device #1 ea 07/02/22 08/10/22 (Aerochamber MV spacer) levothyroxine 100 mcg tablet See Rx Instructions .Route 07/02/22 08/10/22 .COMPLEX #90 tabs clonazepam 0.5 mg tablet 0.5 mg PO DAILY PRN #10 tabs 08/10/22 Previous Rx's Medication Instructions Recorded amlodipine 5 mg-benazepril 40 mg 1 cap PO DAILY #90 caps 01/26/22 capsule atenolol 25 mg tablet 25 mg PO DAILY #90 tabs 03/12/22 atorvastatin 40 mg tablet 40 mg PO DAILY #90 tabs 03/12/22 albuterol sulfate 90 mcg/actuation 2 puff inhalation Q6H PRN 07/02/22 aerosol inhaler shortness of breath or wheezing #8.5 grams inhalational spacing device #1 ea 07/02/22 (Aerochamber MV spacer) levothyroxine 100 mcg tablet See Rx Instructions .Route 07/02/22 .COMPLEX #90 tabs clonazepam 0.5 mg tablet 0.5 mg PO DAILY PRN #10 tabs 08/10/22 Allergies Allergy/AdvReac Type Severity Reaction Status Date / Time Penicillins AdvReac Verified 08/08/22 18:35 General Stated Complaint: GenMedical TERESITA: 3 Review of Systems Narrative: Review of Systems Constitutional: negative Eyes: negative ENT: negative Cardiovascular: Chest tightness Respiratory: negative Gastrointestinal: negative : negative Musculoskeletal: negative Skin: negative Neurologic: negative Psych: Anxiety, stress PFSH All Active Problems (Updated 08/10/22 @ 15:35 by Jonas Beck MD) Chest pressure (Acute) Screening PSA (prostate specific antigen) (Acute) COVID-19 (Acute) 08/03/2021 PAD (peripheral artery disease) (Acute) 2019, right leg claudication , s/p stent, [place] [facility] [place] Chronic kidney disease (Chronic) stage 3, 01/2021, Cr-1.4 Hyponatremia (Acute) 02/2020- Na-124, recurrence, 01/2021-Na -129 presumed secondary to HCTZ Hypothyroidism (Chronic) hx of Hashimotos thyroiditis per pt Tear of medial meniscus of left knee (Acute) History of chest pain (Chronic) Per CT records: EKG NSR without acute changes 05/05/2013, Stress Test:Extremely poor exercise capacity but negative stress test without EKG changes at 91% of maximum predicted heart rate for age. BP response normal, no arrhythmias detected; pharmalogic nuclear stress test might be useful to better exclude possible underlying ischemia in this patient with extremely poor exercise tolerance. 24 Holter Monitor done 06/01/13: SR with 87 PVCs noted. No runs noted. No pauses noted. No arrythmias. Cardiac Echo was noted as being ordered but none found in packet of Medical Records. (See scanned record- Dr. Eliazar Lovett) Anxiety (Chronic) Hypercholesteremia (Chronic) BPH w/o urinary obs/LUTS (Acute) Essential hypertension (Acute Unknown) Medical History COPD (chronic obstructive pulmonary disease) Pt. states he runs out of breath pretty quickly Hypolipidemia Urinary frequency Surgical History History of tonsillectomy Family History Mother Asthma Father Heart disease Prostate cancer Brother No problems noted. Son No problems noted. Daughter No problems noted. Social History Smoking/Tobacco Use Status: Former Tobacco Use Tobacco: How many years used: 46 Smoking risk assessment performed?: Yes Alcohol Intake: current Alcohol Intake frequency: a few times a month Alcohol type: beer and hard liquor Drug use: Occasionally Substance use type: marijuana Education Level: college Details: Some college/no degree Pets and animals: Yes Pets and animals: cat(s) and dog(s) Current gender identity: male What is your relationship status?: How often do you talk on the phone with friends or family?: decline to answer How often do you get together with friends or relatives?: decline to answer How often do you attend mosque or jew services?: decline to answer Do you belong to any clubs or organized social groups?: decline to answer Panel score (0-1 are the most socially isolated patients): 1 What type of physical activity do you participate in: walking Duration: decline to answer Frequency: daily Radha/Sabianist: Alevism Special radha needs: No Do you feel safe at home: Yes Do you feel safe in your relationship?: Yes Exam Narrative Exam Narrative: Physical Examination General: alert, awake, cooperative, resting comfortably, no acute distress HEENT: normocephalic, atraumatic; PERRL, EOM intact, conjunctiva normal; no nasal discharge; moist mucous membranes, oral and pharyngeal mucosa normal, tolerating secretions Neck: supple, trachea midline; full ROM Chest: normal to inspection Respiratory: normal respiratory effort, speaking in full sentences, clear to auscultation, no wheezing, rales or rhonchi Cardiac: regular rate, regular rhythm, S1S2 intact, no murmurs rubs or gallops GI: abdomen soft, non-tender, non-distended; no palpable mass or hepatosplenomegaly Skin: no lesions, rashes or trauma appreciated Neuro: AAOx3, normal speech, moving all extremities Psych: Appropriate mood and affect Course Vital Signs Vital signs: Vital Signs Temperature 36.3 C L 08/10/22 13:42 Pulse 62 08/10/22 13:42 Respiratory Rate 18 08/10/22 13:42 Blood Pressure 180/88 H 08/10/22 13:42 Pulse Oximetry 98 08/10/22 13:42 Temperature 36.3 C L 08/10/22 13:42 Temperature Source Oral 08/10/22 13:42 Pulse 62 08/10/22 13:42 Respiratory Rate 18 08/10/22 13:42 Respiratory Effort Normal, Non-Labored 08/10/22 13:47 Blood Pressure 180/88 H 08/10/22 13:42 Blood Pressure Position Sitting 08/10/22 13:42 Pulse Oximetry 98 08/10/22 13:42 Oxygen Delivery Method Room Air 08/10/22 13:42 Oxygen Flow Rate 0 08/10/22 13:42 Pain Level 0 08/10/22 13:42
[2022-08-10 14:40] LABS: Abs Immature Grans 0.02 10^3/uL (0.0-0.06); Absolute Basophil Count 0.09 10^3/uL (0.0-0.2); Absolute Lymphocyte Count 1.17 10^3/uL (1.2-3.4); Absolute Monocyte Count 0.66 10^3/uL (0.1-0.8); Absolute Neutrophil Count 5.36 10^3/uL (1.2-6.7); Basophils % 1.2; Eosinophils % 1.4; HCT 44.5 % (40.0-50.0); HGB 14.8 g/dL (13.5-17.5); Immature Grans % 0.3; Lymphocytes % 15.8; MCH 30.5 pg (27.0-33.0); MCHC 33.3 % (32.0-36.0); MCV 92 fL (80-95); MPV 10.2 fL (8.0-11.0); Monocytes % 8.9; Neutrophils % 72.4; Platelet Count 187 10^3/uL (130-400); RBC 4.86 10^6/uL (4.36-5.78); RDW 12.9 % (11.8-14.1); RDW-SD 43.2 fL
[2022-08-10 14:58] LABS: ALT 35 U/L (16-63); AST 22 U/L (15-37); Albumin 3.9 g/dL (3.4-5.0); Alkaline Phosphatase 90 U/L (46-116); Anion Gap 5.5 mmol/L (3-11); BUN 20 mg/dL (7-18); Bilirubin, Total 0.6 mg/dL (0.2-1.0); CO2 30.5 mmol/L (21.0-32.0); CREATININE 1.2 mg/dL (0.70-1.30); Calcium 9.1 mg/dL (8.5-10.1); Chloride 102 mmol/L (98-107); Estimated GFR 65.06 (mL/min/1.73m2); Glucose 116 mg/dL (74-106); Sodium 138 mmol/L (136-145); Total Protein 6.9 g/dL (6.4-8.2); Troponin I < 50 ng/L (<or=60)
== END 2022-08-10 15:48 | disposition home or self-care (01) ==
PROVIDERS: Emergency Provider Emergency Medicine; PCP Nurse Practitioner Family
DX: R07.9 Chest pain, unspecified (principal); Z73.3 Stress, not elsewhere classified; I10 Essential (primary) hypertension
CPT/HCPCS: 80053; 93005; 99284; 71046; 84484; 85025; 93010

== ENCOUNTER 2022-09-11 13:15 | Outpatient (REF) | payer MEDICARE, OTHER, SELFPAY | END 2022-09-11 13:16 | disposition home or self-care (01) | LOC: LBN 13:15 | PROVIDERS: PCP Nurse Practitioner Family; Visit Provider Physician Assistant Medical | DX: J02.9 Acute pharyngitis, unspecified (principal) | CPT/HCPCS: 87070 ==

== ENCOUNTER → 2022-10-04 14:31 | Outpatient (BNVA) | payer MEDICARE, OTHER, SELFPAY | PROVIDERS: PCP Nurse Practitioner Family; Referring Provider Nurse Practitioner Family; Visit Provider Surgery | DX: Z12.11 Encounter for screening for malignant neoplasm of colon (principal) | CPT/HCPCS: 99242 ==

== ENCOUNTER 2022-10-16 08:54 | Day surgery (SDC) | payer MEDICARE, OTHER, SELFPAY ==
--- NOTE | 2022-10-15 19:37 | PDOC.DSDIS_ITS ---
Date of service: 10/16/22 Time of Service: 11:26 Discharge Plan Disposition Patient Disposition: Home Condition: Good Discharge Details Reason For Visit: colon scope Attending Provider: Carol Aldrich Primary Care Provider: Isauro Diallo Home Meds and New Rx's Prescriptions: Continued amlodipine-benazepril 5-40 mg capsule 1 cap PO DAILY Qty: 90 1RF albuterol sulfate 90 mcg/actuation HFA aerosol inhaler 2 puff inhalation Q6H PRN (Reason: shortness of breath or wheezing) Qty: 8.5 0RF (DME) Aerochamber MV Spacer See Rx Instructions .Route Qty: 1 0RF Rx Instructions: As directed levothyroxine 100 mcg tablet 100 mcg PO DAILY atorvastatin 40 mg tablet 40 mg PO DAILY Qty: 90 3RF atenolol 25 mg tablet 25 mg PO DAILY Qty: 90 3RF clonazepam 0.5 mg tablet 0.5 mg PO DAILY PRNQty: 10 0RF Rx Instructions: prn severe anxiety aspirin 81 mg Tablet 81 mg PO DAILY Discontinued polyethylene glycol 3350 17 gram/dose powder 238 g PO ONCE Qty: 238 0RF Rx Instructions: take per colonoscopy instructions bisacodyl [Dulcolax (bisacodyl)] 5 mg tablet,delayed release (DR/EC) 5 mg PO ONCE Qty: 4 0RF Rx Instructions: take per colonoscopy instructions Discharge Instructions Additional Instructions: DSU Colonoscopy Post- Op Instructions Instructions for Everyone who is given Anesthesia: For your safety, please do the following for the next twenty-four (24) hours: *Do Not operate a motor vehicle (car, truck, motorcycle, etc.) *Do Not drink alcoholic beverages or use any recreational drugs for the first 24 hours or while taking pain medications. The medications in your body may have a reaction that can be dangerous. *Do Not make any important decisions or sign any important papers. Findings: x2 polyps Follow up: The office will send a letter in 2 to 3 weeks time with the results of biopsies and when we want you to repeat the colonoscopy. 1. No lifting over 20 pounds or strenuous activity for the first 24 hours after your procedure. After 24 hours there are no restrictions on your activity but you may feel fatigued for a few days. 2. After you arrive home you may have a light meal and return to your normal diet as you can tolerate it without feeling sick to your stomach. 3. You may have a bloated, gaseous feeling in your belly (abdomen) after a colonoscopy. Passing gas and belching will help. Walking or lying down on your left side with your knees flexed may relieve the discomfort. Call the office at [phone] (Office) or [phone] (Hospital) right away if you notice any of the following: a.Vomiting of blood or ?coffee ground stools?. b.Rectal bleeding 1Tbsp, blood clots or continuous bleeding. c.Severe belly (abdominal) pain. d.A hard distended belly (abdomen) and an inability to pass gas. 4. Please don?t expect to have a normal BM (bowel movement) for 2-3 days after your procedure. 5. If there are questions regarding the findings of your procedure, please cont act your doctor 6. If you are unable to contact your doctor with a problem, contact the hospital at [phone]. 7. Continue all your regular medications unless directed otherwise. I understand the above instructions and have no questions. Signature of Patient or Adult Escort Name of Responsible Adult Escort Signature of Nurse Date/Time Activity:: see above Diet:: see above Discharge Orders Discharge Orders: Discharge Order (Routine); Ordered 10/16/22 Ordered By: Carol Aldrich DS: Diagnosis Discharge Diagnosis (1) Hypercholesteremia: Status: Chronic (2) BPH w/o urinary obs/LUTS: Status: Acute (3) Essential hypertension: Status: Acute (4) Tobacco abuse: Status: Resolved (5) Hypothyroidism: Status: Chronic (6) Chronic kidney disease: Status: Chronic (7) PAD (peripheral artery disease): Status: Acute (8) Positive colorectal cancer screening using Cologuard test: Status: Acute Asessment and Plan: The patient is seen and examined after their colonoscopy.? The patient has been able to pass gas.? They are not having abdominal pain.? They have been able to tolerate liquids and a snack.? They do not have any nausea or vomiting.? They are not having any chest pain or shortness of breath.??? They are not having any rectal bleeding. Their vital signs have been stable-see nursing notes. We discussed findings during their colonoscopy, and any biopsies that were done/polyps that were removed. The patient will be sent a letter with any biopsy results, and when to repeat the colonoscopy.-see discharge instructions. Patient was given explicit instructions to follow-up regarding colonoscopy-refer to discharge instructions.? We reviewed resumption of medications. Patient verbalized understanding and discharged in stable and satisfactory condition- See nursing notes. (9) COPD (chronic obstructive pulmonary disease):
--- NOTE | 2022-10-15 19:40 | W.COLOREPORT ---
Date of service: 10/16/22 Time of Service: 11:19 Colonoscopy Report Date of procedure: 10/16/22 Pre-op diagnosis general: Cologuard + Post-op diagnosis procedure note: other (polyps) Surgeon: Carol Aldrich Anesthesia Type: General LMA/ETT Estimated blood loss (mL): 1 Pathology: other Complications: None Disposition: same day Prep: Miralax/Dulcolax Retraction Time: 12 Procedure Description: After informed consent was obtained the patient was taken to the procedure room and placed in a left decubitous position. Monitors were applied and a time out was done. The patients name, date of , procedure, allergies to medications and metal in their body was reviewed. The patient was then sedated. Once sedated and comfortable a rectal exam was done. External exam was normal. Internal exam revealed a normal sphincter tone and no palpable masses. The prostate normal. The scope was then introduced and retrofelexed. No internal hemorrhoids were identified. The scope was then advanced to the cecum w/out difficulty. The TI and appendiceal orifice were identified. The prep was BBPS III in all segments for a total of 9. The scope was then slowly retracted over 12 minutes back into the rectum. He had a 5 mm flat polyp in the rectum that is removed with a cold biting forcep. He had a 5 mm flat polyp in the cecum that is removed with a cold biting forcep. All specimen is retrieved and no bleeding is noted. There are no diverticula or AVMs visualized. The mucosa is pink and healthy with a normal vascular pattern. The scope was removed and the patient was woken up and taken back to Same day surgery in stable condition. The patient tolerated the procedure well and there were no immediate complications. Follow up: The patient should follow up in 7 years, path pending, unless they develop changes in bowel habits or other new gastrointestinal complaints.
[2022-10-16 09:21] VITALS: BP 118/90; PULSE 59; RESP 16; TEMP 36.5; O2SAT 98
--- NOTE | 2022-10-16 09:38 | W.ANESPRE ---
General Info Date of Service Date Performed: 10/16/22 Height: 5 ft 10 in Weight: 66.7 kg Body Mass Index (BMI): 21.1 Surgical Procedure: Operation Date: 10/16/22 09:50 Proposed Procedure Side Surgeon wanda Aldrich, DO Meds Allergies and Home Medications Allergies Allergy/AdvReac Type Severity Reaction Status Date / Time Gadolinium-Containing Allergy Mild Verified 10/16/22 09:24 Contrast Medi Penicillins AdvReac Verified 10/16/22 09:24 Home Medication Medication Instructions Recorded aspirin 81 mg tablet 81 mg PO DAILY 07/08/20 atenolol 25 mg tablet 25 mg PO DAILY #90 tabs 03/12/22 atorvastatin 40 mg tablet 40 mg PO DAILY #90 tabs 03/12/22 albuterol sulfate 90 mcg/actuation 2 puff inhalation Q6H PRN 07/02/22 aerosol inhaler shortness of breath or wheezing #8.5 grams inhalational spacing device #1 ea 07/02/22 (Aerochamber MV spacer) clonazepam 0.5 mg tablet 0.5 mg PO DAILY PRN #10 tabs 08/10/22 amlodipine 5 mg-benazepril 40 mg 1 cap PO DAILY #90 caps 09/18/22 capsule levothyroxine 100 mcg tablet 100 mcg PO DAILY 10/04/22 Current Visit Medications: Current Medications Generic Name Dose Route Start Last Admin Trade Name Freq PRN Reason Stop Dose Admin Hyoscyamine Sulfate 0.125 mg 10/16/22 07:13 Hyoscyamine 0.125 Mg Sl/Oral/Chew SL 11/15/22 07:12 DIRECTED PRN Ringer's Solution 1,000 mls @ 80 mls/hr 10/16/22 06:00 IV 11/14/22 23:59 [facility] IV Miscellaneous Supplies 1 each 10/16/22 06:00 Iv Access IV 11/14/22 23:59 DIRECTED LIZZIE Ondansetron HCl 4 mg 10/16/22 07:13 Ondansetron 4 Mg/2 Ml Vial IVP 11/15/22 07:12 Q4H PRN PRN Nausea / Vomiting Sodium Chloride 0 ml 10/16/22 06:00 Normal Saline Flush 10 Ml Syr IV 11/14/22 23:59 PRN PRN Sodium Chloride 0 ml 10/16/22 06:00 Normal Saline 10 Ml Vial IJ 11/14/22 23:59 DIRECTED PRN Sterile Water 0 ml 10/16/22 06:00 Water,Injection,Sterile 10 Ml Vial IJ 11/14/22 23:59 DIRECTED PRN PFSH Active Problems Active Problems: Problem Status Onset Code Hypercholesteremia E78.00 BPH w/o urinary obs/LUTS N40.0 Essential hypertension Unknown I10 Anxiety F41.9 History of chest pain Z87.898 Tobacco abuse Z72.0 Tear of medial meniscus of left knee S83.242A Hyponatremia E87.1 Hypothyroidism E03.9 Chronic kidney disease N18.9 PAD (peripheral artery disease) I73.9 COVID-19 U07.1 Screening PSA (prostate specific antigen) Z12.5 Screening for colon cancer Z12.11 Positive colorectal cancer screening using Cologuard test R19.5 Medical History Medical History COPD (chronic obstructive pulmonary disease) Pt. states he runs out of breath pretty quickly Hypolipidemia Urinary frequency Surgical History Surgical History History of tonsillectomy Status post peripheral artery angioplasty with insertion of stent Stents in leg r/t to claudication pt. states pelvic area and mid thigh-[facility] [place] Tobacco Smoking/Tobacco Use Status: Current every day Tobacco Type: cigarettes Passive smoking exposure: Yes Alcohol Alcohol Intake: current Alcohol intake frequency: a few times a month Alcohol type: beer and hard liquor Substance Use Substance use type: does not use Vital Signs and Lab Results Vital Signs Most Recent Vital Signs in EMR: Most Recent Vital Signs Temp Pulse Resp BP Pulse Ox 36.5 C 59 L 16 118/90 98 10/16/22 09:21 10/16/22 09:21 10/16/22 09:21 10/16/22 09:21 10/16/22 09:21 Lab Results Blood Type / Crossmatch: No Data to Display Complete Blood Count: No Data to Display Complete Metabolic Panel: No Data to Display Liver Function Panel: No Data to Display Coagulation Panel: No Data to Display Cardiac Panel: No Data to Display Arterial Blood Gas: No Data to Display Venous Blood Gas: No Data to Display Pancreas Panel: No Data to Display Thyroid Panel: No Data to Display Infectious Disease: No Data to Display Blood Cultures: No Data to Display Toxicology Panel: No Data to Display Imaging and Studies Imaging and Studies Study information below may be from another EMR and interpreted by another provider. Please see original notes in EMR for more complete details. EKG Summary: 08/10/2022: ECG Measurements Heart Rate 55 AXIS DC 165 P 78 QRSd 93 QRS 81 QT 420 T69 QTc 401 Conclusion Sinus bradycardia...rate< 60 sinus bradycardia, normal axis, normal intervals, non ischemic Stress Test Summary: 02/29/2020: MPI Conclusion Normal myocardial perfusion without evidence of ischemia or prior infarction Anesthesia Assessment and Plan Anesthesia History Personal History: No History of Anesthesia Complications Family History: No Family History of Anesthesia Complications Exercise Tolerance Exercise Tolerance: Metabolic Equivalents>4 Pertinent Negatives Pertinent Negatives: No Symptoms of GERD, No Major Cardiovascular Symptoms or Complaints and No Major Pulmonary Symptoms or Complaints Cardiac & Pulmonary Exam Cardiac Exam: Normal S1/S2 Heart Sounds Pulmonary Exam: Clear Bilateral Breath Sounds Implantable Cardiac Device Does patient have a Pacemaker or an ICD?: No Airway Exam Known Difficult Airway: No Mallampati Class: 3 Mouth Opening: Normal (> 3cm) Thyromental Distance: Greater than 3 cm Facial Hair: Full Gallagher Neck Range of Motion: Full ROM Neck Circumference: Normal Teeth Condition: Loose or Chipped (25) ASA Classification ASA Score: ASA 2 Emergency Case?: No NPO Status NPO Status: NPO Clears >2 hours, Solids >8 hours Anesthesia Plan Resuscitation Status: Full Code Anesthesia Technique: General Anesthesia Airway Planned: Natural Airway Monitors Used: Standard Monitors
[2022-10-16] MEDS: Lactated Ringers 1,000 ML 80 ML IV (09:40)
[2022-10-16 09:42] VITALS: BMI 21.1
--- NOTE | 2022-10-16 10:49 | BOWEL_PTH ---
PATIENT: Bryce Shields LOC: [facility] U#:[id number] AGE/SX: 72/M ROOM: RE10/16/[address]: Carol Aldrich : 1950 BED: DIS: 10/16/2022 SPEC #: [id number] RECD: 10/16/22 12:52 STATUS: ZAHIDA REQ #: [id number] ESSENCE: 10/16/22 10:[address]: Carol Aldrich DEPT: Surgical Specimen RECD BY: Liz Costello ENTERED: 10/16/22 12:52 SP TYPE: Bowel OTHR DR: Isauro Yan, [place] Tissues: 1 - BIOPSY BOWEL 2 - BIOPSY BOWEL Procedures: GROSS AND MICRO LEVEL 4 Comments: [id number]
[2022-10-16 11:22] VITALS: BP 87/64; PULSE 58; RESP 16; TEMP 36.2; O2SAT 99
[2022-10-16 11:50] VITALS: BP 100/76; PULSE 49; RESP 18; TEMP 36.4; O2SAT 99
--- NOTE | 2022-10-16 12:05 | W.ANESPOSTOP ---
Postoperative Evaluation Date, Time and Location Date Performed: 10/16/22 Time Performed: 11:50 Patient Location: Day Surgery Unit Vital Signs Most Recent Imported Vital Signs: Most Recent Vital Signs Temp Pulse Resp BP Pulse Ox 36.4 C L 49 L 18 100/76 99 10/16/22 11:50 10/16/22 11:50 10/16/22 11:50 10/16/22 11:50 10/16/22 11:50 Pain Score Most Recent Pain Score: Most Recent Pain Score Pain Level 0 10/16/22 11:50 Assessment Mental Status: Awake (Alert & Oriented to Patient Baseline) Airway and Respiratory Function: Patent airway with normal (patient baseline) respiratory exam Cardiovascular Function: Hemodynamically Stable Hydration Status: Adequately Hydrated Nausea & Vomiting: No Nausea or Vomiting Pain: Pt. Denies Any Pain Peripheral Nerve Block: Patient did not receive a nerve block
== END 2022-10-16 12:20 | disposition home or self-care (01) ==
PROVIDERS: PCP Nurse Practitioner Family; Visit Provider Surgery
PROC: 0DJD8ZZ Inspection of Lower Intestinal Tract, Via Natural or Artificial Opening Endoscopic (ICD-10-PCS; CPT 45378; principal; 2022-10-16 09:45)
DX: Z12.11 Encounter for screening for malignant neoplasm of colon (principal); K62.1 Rectal polyp; R19.5 Other fecal abnormalities; D12.0 Benign neoplasm of cecum
CPT/HCPCS: 45380; 88305; J2001

== ENCOUNTER 2022-10-23 04:52 | Outpatient (CLI) | payer MEDICARE, OTHER, SELFPAY ==
[2022-10-23 12:44] LABS: Calculated LDL 166 mg/dL (<100); Cholesterol 238 mg/dL (<200); HDL Cholesterol 59 mg/dL (40-60); TSH (W/Ref FT4) 2.58 uIU/mL (0.36-3.74); Triglyceride 65 mg/dL (<150)
[2022-10-23 22:53] LABS: PSA, Screening 1.1 ng/mL (<=6.5)
== END 2022-10-23 04:53 | disposition home or self-care (01) ==
LOC: LOS 04:52
PROVIDERS: PCP Nurse Practitioner Family; Visit Provider Nurse Practitioner Family
DX: E03.9 Hypothyroidism, unspecified (principal); E78.00 Pure hypercholesterolemia, unspecified; I10 Essential (primary) hypertension; N18.9 Chronic kidney disease, unspecified; N40.0 Benign prostatic hyperplasia without lower urinary tract symptoms; Z12.5 Encounter for screening for malignant neoplasm of prostate
CPT/HCPCS: 36415; 80061; 84153; 84443

== ENCOUNTER → 2023-04-08 04:24 | Outpatient (CLI) | payer MEDICARE, OTHER, SELFPAY ==
--- NOTE | 2023-04-08 06:30 | DI.US_ITS ---
Exam(s) US AAA SCREENING EXAM: US AAA SCREENING CLINICAL HISTORY: screening for aaa, h/o tobacco abuse,z72.0 COMPARISON: No exams were available for comparison FINDINGS: There is atherosclerotic involvement of the abdominal aorta. There is lack of normal distal tapering of the abdominal aorta with the distal aorta exhibiting measurement of 3 cm. There are no obvious a neurysms of the visualized common iliac arteries. IMPRESSION: Lack of normal tapering of the distal abdominal aorta which exhibits diameter at this level of 3 cm. Proximal abdominal aorta measures 2.6 cm. No aneurysms of the visualized common iliac arteries evident. DATA REPOSITORY:
--- NOTE | 2023-04-08 07:38 | DI.CTLCSR_ITS ---
Exam(s) CT CHEST LUNG CANCER SCREEN EXAM: CT CHEST LUNG CANCER SCREEN CLINICAL HISTORY: Screening for lung cancer,former smoker,z87.891. TECHNIQUE: Imaging Protocol: Low Dose Technique CONTRAST MATERIAL: None COMPARISON: CR XR CHEST 2V PA LATERAL from 08/10/2022 FINDINGS: CHEST: LUNGS: In the posterior segment of the right upper lobe there are 3 small adjacent 2-3 millimeter nod ules. . No other focal right lung findings nor pleural effusion. There are no significant focal le ft lung findings. A tiny calcified granulomas noted in the lateral left lung base in the anterior ba chiki segment. No pleural effusions. MEDIASTINUM: There is no obvious hilar nor mediastinal adenopathy. CARDIAC: Heart size is normal. There is no pericardial effusion.Caliber of the thoracic aorta is wit hin normal limits. OTHER: OSSEOUS: No significant osseous lesions.No acute fractures.. IMPRESSION: 1. There a few small benign-appearing 2 millimeter nodules in the right upper lobe. Have benign appe arance. No confluent infiltrates 2. No pleural effusions nor intrathoracic adenopathy. 3. Lung RADS Cat 2 - Benign Appearance / Behavior: Nodules with a very low likelihood of becoming a c linically active cancer due to size or lack of growth Lung-RADS 1.0 CATEGORIES: Category 0 - Prior chest CT exam(s) being located for comparison. Category 1 - Annual screening in 12 months. No nodules or definitely benign nodules. Category 2 - Annual screening in 12 months. Benign appearance. Nodules with low likelihood of becomin g active cancer. Category 3 - 6-month follow-up. Probably benign. Short-term follow-up suggested. Nodules with low lik elihood of becoming active cancer. Category 4A - 3-month follow-up and CT/PET if >8 mm in size. Suspicious finding. Findings which requi re additional testing. Category 4B - Findings which require additional testing and tissue sampling. Category 4X - Category 3 or 4 nodules with additional features or imaging findings that increases the suspicion of malignancy. Modifier S- Potentially clinically significant findings (non lung cancer) RADIATION DOSE DELIVERED: 73.44mGy.cm Total DLP DATA REPOSITORY: All CT scans at this facility are submitted to the National Radiology Data Registry (NRDR) Dose Index Registry (DIR) with the [employer] ([employer]). RADIATION OPTIMIZATION: All CT scans at this facility use at least one of these dose optimization te chniques: automated exposure control; mA and/or kV adjustment per patient size (includes targeted exa ms where dose is matched to clinical indication); or iterative reconstruction.
== END ==
PROVIDERS: PCP Nurse Practitioner Family; Visit Provider Nurse Practitioner Family
DX: Z72.0 Tobacco use (principal); Z12.2 Encounter for screening for malignant neoplasm of respiratory organs; Z13.6 Encounter for screening for cardiovascular disorders
CPT/HCPCS: 71271; 76706

== ENCOUNTER → 2023-04-16 15:23 | Outpatient (CLI) | payer MEDICARE, OTHER, SELFPAY ==
--- NOTE | 2023-04-16 15:00 | DI.RAD_ITS ---
Exam(s) XR CHEST 2V PA LATERAL EXAM: XR CHEST 2V PA LATERAL CLINICAL HISTORY: evaluate pathology ? PNA, uri, J06.9 TECHNIQUE: 2D digital imaging was performed of the chest. Two images were obtained. PA and lateral views were obtained. COMPARISON: CR XR CHEST 2V PA LATERAL from 08/10/2022 FINDINGS: MEDIASTINUM: Normal. HEART: Normal. PULMONARY VASCULATURE: Normal. LUNGS: Clear. PLEURAL SPACE: No pleural effusion or pneumothorax. BONE:Within normal limits for the patient's age. OTHER FINDINGS:Normal. There is a pectus excavatum deformity. IMPRESSION: No acute pulmonary findings. DATA REPOSITORY: RADIATION DOSE DELIVERED:
== END ==
PROVIDERS: PCP Nurse Practitioner Family; Visit Provider Nurse Practitioner Family
DX: J06.9 Acute upper respiratory infection, unspecified (principal)
CPT/HCPCS: 71046

== ENCOUNTER 2023-07-18 12:56 | Emergency (ER) | payer MEDICARE, OTHER, SELFPAY ==
[2023-07-18 13:00] VITALS: BP 180/116; PULSE 65; RESP 15; TEMP 36.6; O2SAT 97
--- NOTE | 2023-07-18 13:00 | ED.GENADUL_ITS ---
Discharge Plan Disposition Patient Disposition: Home Discharge Details Clinical Impression: Laceration of right index finger, Elevated blood pressure reading with diagnosis of hypertension Primary Care Provider: Isauro Diallo ED Provider: Bud Ramos Home Meds and New Rx's Prescriptions: Continued amlodipine-benazepril 5-40 mg capsule 1 cap PO DAILY Qty: 90 1RF albuterol sulfate 90 mcg/actuation HFA aerosol inhaler 2 puff inhalation Q6H PRN (Reason: shortness of breath or wheezing) Qty: 8.5 0RF (DME) Aerochamber MV Spacer See Rx Instructions .Route Qty: 1 0RF Rx Instructions: As directed albuterol sulfate 90 mcg/actuation HFA aerosol inhaler 2 puff inhalation Q6H PRN (Reason: shortness of breath or wheezing) Qty: 8.5 0RF levothyroxine 100 mcg tablet 100 mcg PO DAILY Qty: 90 4RF atenolol 25 mg tablet 25 mg PO DAILY Qty: 90 3RF aspirin 81 mg Tablet 81 mg PO DAILY Hold Instructions: Pt Stopped/Never Started Discharge Instructions Instructions: Finger Laceration (ED) Additional Instructions: You were seen in the emergency department for your right index finger laceration which was closed with 3 sutures that will need to be removed in 7 to 10 days. As we discussed, please keep your wound clean, dry and covered. Please do not soak in a tub, swim or engage in any activities which could introduce dirt into your wound. You may return to the emergency department, go to urgent care or go to your primary care provider in 7 to 10 days to have your stitches removed. As we discussed if you develop any foul-smelling drainage fevers streaking signs of infection or have any other concerns please return to the emergency department. For your pain please take medications as follows: 1. Take acetaminophen (Tylenol), 1,000 mg (two 500 mg tabs) every 6 hours Discharge Data Discharge Date/Time-TO BE ENTERED AT DEPARTURE: 07/18/23 14:27 HPI General Date/Time Provider Initiated Documentation: 07/18/23 13:00 . HPI Narrative: MDM This is an overall very well-appearing ovhvu-ditr-musabunf normothermic and not tachycardic 72-year-old male with right index finger lacerations which will require primary closure in the ED. Patient's tetanus has been updated less than 5 years ago so no indication for repeat tetanus immunization. No preceding chest pain nor syncope so I did not obtain ECG. Will obtain x-ray to assess for any metallic foreign bodies. No shortness of breath to suggest PE. No pain out of proportion to suggest necrotizing soft tissue infection. No fluctuance to suggest felon. Patient has intact range of motion in his right hand so I am not concern for any tendinous injuries. Patient is not a diabetic and not had any increased risk for poor wound healing so we will defer prophylactic antibiotics at this point in time. Patient and I discussed return to the ED for streaking signs of infection fevers chills or foul-smelling drainage. Vitals noted for elevated blood pressure. Patient does have a history of hypertension. He took his medications today. I advised outpatient PCP follow-up. Patient tolerated laceration repair well. I placed him in an aluminum finger splint to expedite wound healing. He understood his return indications and was discharged with an empiric trial of expectant outpatient management. HPI This is a ejgbu-ldmd-dwdpralk 72-year-old not anticoagulated male arrived to the emergency department via private vehicle in the setting of a laceration he sustained to his right index finger using a gold nib grinder while working with a nail just prior to arrival. Patient reports that he irrigated the area extensively. He was concerned about retained foreign body so he came to the emergency department. He feels as if he is moving his right finger well. He denies any other injuries. He woke in his usual state of health and denies any fevers chills nausea vomiting chest pain shortness of breath. Exam General: Well-appearing in no acute distress speaking in complete sentences. Head: Normocephalic, atraumatic. Eye: Extraocular eye movements intact. No conjunctival injection. No scleral icterus. Ear, nose, mouth, throat: Grossly normal inspection. Normal voice, handling secretions normally. Neck: Trachea midline. Cardiovascular: Well-perfused distal extremities. Respiratory: Nonlabored respiration. Gastrointestinal: Nondistended abdomen. Musculoskeletal: Overlying the PIP joint of the right index finger there is a hemostatic approximately 3 cm laceration. Patient has intact range of motion in the right index finger across the MCP, PIP, and DIP joints on flexion and extension. Cap refill less than 2 seconds in the right hand fingertips. 2+ right radial pulse. Skin: Normal for age and race, grossly normal temperature and turgor. No acute rash. Neurologic: Alert and appropriate, no apparent acute deficits. Psychiatric: Mood and manner are appropriate. Grooming and personal hygiene are appropriate. Related Data Home Medications Medication Instructions Recorded Confirmed aspirin 81 mg tablet 81 mg PO DAILY 07/08/20 07/18/23 albuterol sulfate 90 mcg/actuation 2 puff inhalation Q6H PRN 07/02/22 07/18/23 aerosol inhaler shortness of breath or wheezing #8.5 grams inhalational spacing device #1 ea 07/02/22 03/22/23 (Aerochamber MV spacer) amlodipine 5 mg-benazepril 40 mg 1 cap PO DAILY #90 caps 09/18/22 07/18/23 capsule levothyroxine 100 mcg tablet 100 mcg PO DAILY #90 tabs 01/07/23 07/18/23 albuterol sulfate 90 mcg/actuation 2 puff inhalation Q6H PRN 04/16/23 07/18/23 aerosol inhaler shortness of breath or wheezing #8.5 grams atenolol 25 mg tablet 25 mg PO DAILY #90 tabs 07/08/23 07/18/23 Previous Rx's Medication Instructions Recorded albuterol sulfate 90 mcg/actuation 2 puff inhalation Q6H PRN 07/02/22 aerosol inhaler shortness of breath or wheezing #8.5 grams inhalational spacing device #1 ea 07/02/22 (Aerochamber MV spacer) amlodipine 5 mg-benazepril 40 mg 1 cap PO DAILY #90 caps 09/18/22 capsule levothyroxine 100 mcg tablet 100 mcg PO DAILY #90 tabs 01/07/23 albuterol sulfate 90 mcg/actuation 2 puff inhalation Q6H PRN 04/16/23 aerosol inhaler shortness of breath or wheezing #8.5 grams atenolol 25 mg tablet 25 mg PO DAILY #90 tabs 07/08/23 Allergies Allergy/AdvReac Type Severity Reaction Status Date / Time Gadolinium-Containing Allergy Mild rash Verified 07/18/23 13:16 Contrast Medi Penicillins AdvReac Hives Verified 07/18/23 13:16 General TERESITA: 3 Procedures Laceration Laceration 1: Site: hand Side (If applicable): right Size (cm): 3 Description: linear Depth: simple, single layer Local Anesthetic: other anesthetic (LET) Amount of anesthesia used (mL): 3 Pre-repair: wound explored and irrigated extensively (Irrigated at home prior to arrival) Skin layer closed with: nylon (Prolene) Size (cm): 5-0 Number of sutures: 3 Technique: simple, interrupted Medical Decision Making Quality:SDOH Health Related Social Needs: No Data to Display PFSH All Active Problems (Updated 07/18/23 @ 16:55 by Bud Ramos MD) Elevated blood pressure reading with diagnosis of hypertension (Acute) Laceration of right index finger (Acute) History of tobacco abuse (Acute) Tubular adenoma (Acute ~10/2022) Colon polyp, hyperplastic (Acute ~10/2022) Hypercholesteremia (Chronic) BPH w/o urinary obs/LUTS (Acute) Essential hypertension (Acute Unknown) Anxiety (Chronic) History of chest pain (Chronic) Per CT records: EKG NSR without acute changes 05/05/2013, Stress Test:Extremely poor exercise capacity but negative stress test without EKG changes at 91% of maximum predicted heart rate for age. BP response normal, no arrhythmias detected; pharmalogic nuclear stress test might be useful to better exclude possible underlying ischemia in this patient with extremely poor exercise tolerance. 24 Holter Monitor done 06/01/13: SR with 87 PVCs noted. No runs noted. No pauses noted. No arrythmias. Cardiac Echo was noted as being ordered but none found in packet of Medical Records. (See scanned record- Dr. Eliazar Lovett) Tear of medial meniscus of left knee (Acute) Hyponatremia (Acute) 02/2020- Na-124, recurrence, 01/2021-Na -129 presumed secondary to HCTZ Hypothyroidism (Chronic) hx of Hashimotos thyroiditis per pt Chronic kidney disease (Chronic) stage 3, 01/2021, Cr-1.4 PAD (peripheral artery disease) (Acute) 2019, right leg claudication , s/p stent, followed by [facility] vascular COVID-19 (Acute) 08/03/2021 Screening PSA (prostate specific antigen) (Acute) Screening for colon cancer (Acute) Medical History Positive colorectal cancer screening using Cologuard test COPD (chronic obstructive pulmonary disease) Pt. states he runs out of breath pretty quickly Hypolipidemia Tobacco abuse QUIT 08/2019, about 20 pk yr-declines lung cancer screen as of 09/2021 Urinary frequency Surgical History History of colonoscopy (~10/2022) Status post peripheral artery angioplasty with insertion of stent Stents in leg r/t to claudication pt. states pelvic area and mid thigh-[facility] History of tonsillectomy Family History Mother Asthma Dementia Father Heart disease Prostate cancer Brother No problems noted. Son No problems noted. Daughter No problems noted. Social History Smoking/Tobacco Use Status: Former Tobacco Use tobacco type: cigarettes Quit Date: 03/04/19 Pack-years: 40 Tobacco: How many years used: 40 Smoking risk assessment performed?: Yes Alcohol Intake: current Alcohol Intake frequency: a few times a week Alcohol type: beer Drug use: Never Substance use type: does not use and former substance user Date of last use: former marijuana use Adopted: No Caregiver/Support person: No Foster care: No Household members: spouse Housing: house Number of Children: 2 number of grandchildren: 3 Education Level: college Details: Some college/no degree Do you need help understanding health information?: Rarely current occupation: Retired Pets and animals: Yes Pets and animals: cat(s) and dog(s) Sexually active: Yes Do you think of yourself as: decline to answer Current gender identity: male What is your relationship status?: How often do you talk on the phone with friends or family?: three or more times per week How often do you get together with friends or relatives?: twice per week How often do you attend religion or yarsani services?: decline to answer Do you belong to any clubs or organized social groups?: yes Panel score (0-1 are the most socially isolated patients): 3 What type of physical activity do you participate in: walking and bicycling Duration: 15-30 minutes/day Frequency: other Details: twice daily Radha/Mandaen: Orthodoxy Special radha needs: No Seatbelt use: always Drive intox or ride w/intox route 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
[2023-07-18] MEDS: Lidocaine/Epinephri/Tetracaine Topical Gel 3 ML TP (13:16)
--- NOTE | 2023-07-18 13:45 | DI.RAD_ITS ---
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 TECHNIQUE: 2D digital imaging was performed of the right finger. Three views were obtained. PA/AP, oblique, and lateral views were obtained. COMPARISON: No exams were available for comparison FINDINGS: BONES: No acute fracture is present. No bony destructive lesion is seen. JOINTS: No dislocation present. There are degenerative changes seen in the hand and wrist characteri zed by joint space narrowing and osteophytes. SOFT TISSUE: No radiopaque foreign bodies are seen in the soft tissues. IMPRESSION: No evidence of acute fracture, dislocation, or subluxation. No radiopaque foreign body. DATA REPOSITORY: RADIATION DOSE DELIVERED:
[2023-07-18 13:57] VITALS: BP 187/122; RESP 15; O2SAT 98
[2023-07-18 14:27] VITALS: BP 199/92; PULSE 60; RESP 15; O2SAT 98
== END 2023-07-18 14:27 | disposition home or self-care (01) ==
PROVIDERS: Emergency Provider Emergency Medicine; PCP Nurse Practitioner Family
DX: S61.210A Laceration without foreign body of right index finger without damage to nail, initial encounter (principal); I12.9 Hypertensive chronic kidney disease with stage 1 through stage 4 chronic kidney disease, or unspecified chronic kidney disease; N18.30 Chronic kidney disease, stage 3 unspecified; J44.9 Chronic obstructive pulmonary disease, unspecified; E78.5 Hyperlipidemia, unspecified; Z79.82 Long term (current) use of aspirin; Z87.891 Personal history of nicotine dependence; W31.1XXA Contact with metalworking machines, initial encounter
CPT/HCPCS: 12002; 99283; 73140

== ENCOUNTER 2023-08-01 14:41 | Emergency (ER) | payer MEDICARE, OTHER, SELFPAY ==
--- NOTE | 2023-08-01 14:48 | ED.GENADUL_ITS ---
Discharge Plan Disposition Patient Disposition: Home Discharge Details Clinical Impression: Encounter for removal of sutures Primary Care Provider: Isauro Diallo ED Provider: Bud Ramos Home Meds and New Rx's Prescriptions: No Action amlodipine-benazepril 5-40 mg capsule 1 cap PO DAILY Qty: 90 1RF albuterol sulfate 90 mcg/actuation HFA aerosol inhaler 2 puff inhalation Q6H PRN (Reason: shortness of breath or wheezing) Qty: 8.5 0RF (DME) Aerochamber MV Spacer See Rx Instructions .Route Qty: 1 0RF Rx Instructions: As directed albuterol sulfate 90 mcg/actuation HFA aerosol inhaler 2 puff inhalation Q6H PRN (Reason: shortness of breath or wheezing) Qty: 8.5 0RF levothyroxine 100 mcg tablet 100 mcg PO DAILY Qty: 90 4RF atenolol 25 mg tablet 25 mg PO DAILY Qty: 90 3RF aspirin 81 mg Tablet 81 mg PO DAILY Hold Instructions: Pt Stopped/Never Started Discharge Instructions Additional Instructions: You were seen in the emergency department to have your stitches removed. Please return if you develop any fevers. Only 2 sutures were removed. The third suture has likely fallen out on its own. However if you develop significant swelling at the site of your laceration please return to the emergency department. Discharge Data Discharge Date/Time-TO BE ENTERED AT DEPARTURE: 08/01/23 15:13 HPI General Date/Time Provider Initiated Documentation: 08/01/23 14:43 . HPI Narrative: MDM This is an overall very well-appearing normothermic and not tachycardic 72-year-old male with 2 sutures removed from right index finger. No signs of superinfection. Patient originally had 3 sutures placed. He says that he has been working in the yard mowing the grass. Is certainly possible that one of his sutures could have become removed on its own. I did not see any obvious signs of a third suture. I advised patient that if he develops any significant swelling skin changes or fevers that he should return to the emergency department. Otherwise I advised primary care follow-up as needed. HPI This is a 72-year-old male approximately 2-week status post 3 nonabsorbable sutures being placed in his right index finger for which she requests removal. He only notices 2 stitches. He said no fevers chills or foul-smelling drainage. Exam General: Well-appearing in no acute distress speaking in complete sentences. Head: Normocephalic, atraumatic. Eye: Extraocular eye movements intact. No conjunctival injection. No scleral icterus. Ear, nose, mouth, throat: Grossly normal inspection. Normal voice, handling secretions normally. Neck: Trachea midline. Cardiovascular: Well-perfused distal extremities. Respiratory: Nonlabored respiration. Gastrointestinal: Nondistended abdomen. Musculoskeletal: There is an approximately 2 cm well-healing laceration on the dorsal surface of the patient's right index finger with [address] Skin: Normal for age and race, grossly normal temperature and turgor. No acute rash. Neurologic: Alert and appropriate, no apparent acute deficits. Psychiatric: Mood and manner are appropriate. Grooming and personal hygiene are appropriate. Related Data Home Medications Medication Instructions Recorded Confirmed aspirin 81 mg tablet 81 mg PO DAILY 07/08/20 08/01/23 albuterol sulfate 90 mcg/actuation 2 puff inhalation Q6H PRN 07/02/22 08/01/23 aerosol inhaler shortness of breath or wheezing #8.5 grams inhalational spacing device #1 ea 07/02/22 08/01/23 (Aerochamber MV spacer) amlodipine 5 mg-benazepril 40 mg 1 cap PO DAILY #90 caps 09/18/22 08/01/23 capsule levothyroxine 100 mcg tablet 100 mcg PO DAILY #90 tabs 01/07/23 08/01/23 albuterol sulfate 90 mcg/actuation 2 puff inhalation Q6H PRN 04/16/23 08/01/23 aerosol inhaler shortness of breath or wheezing #8.5 grams atenolol 25 mg tablet 25 mg PO DAILY #90 tabs 07/08/23 08/01/23 Previous Rx's Medication Instructions Recorded albuterol sulfate 90 mcg/actuation 2 puff inhalation Q6H PRN 07/02/22 aerosol inhaler shortness of breath or wheezing #8.5 grams inhalational spacing device #1 ea 07/02/22 (Aerochamber MV spacer) amlodipine 5 mg-benazepril 40 mg 1 cap PO DAILY #90 caps 09/18/22 capsule levothyroxine 100 mcg tablet 100 mcg PO DAILY #90 tabs 01/07/23 albuterol sulfate 90 mcg/actuation 2 puff inhalation Q6H PRN 04/16/23 aerosol inhaler shortness of breath or wheezing #8.5 grams atenolol 25 mg tablet 25 mg PO DAILY #90 tabs 07/08/23 Allergies Allergy/AdvReac Type Severity Reaction Status Date / Time Gadolinium-Containing Allergy Mild rash Verified 08/01/23 14:53 Contrast Medi Penicillins AdvReac Hives Verified 08/01/23 14:53 General TERESITA: 3 Medical Decision Making Quality:SDOH Health Related Social Needs: No Data to Display PFSH All Active Problems (Updated 08/01/23 @ 15:04 by Bud Ramos MD) Encounter for removal of sutures (Acute) Neck pain (Acute) Elevated blood pressure reading with diagnosis of hypertension (Acute) Laceration of right index finger (Acute) History of tobacco abuse (Acute) Tubular adenoma (Acute ~10/2022) Colon polyp, hyperplastic (Acute ~10/2022) Hypercholesteremia (Chronic) BPH w/o urinary obs/LUTS (Acute) Essential hypertension (Acute Unknown) Anxiety (Chronic) History of chest pain (Chronic) Per CT records: EKG NSR without acute changes 05/05/2013, Stress Test:Extremely poor exercise capacity but negative stress test without EKG changes at 91% of maximum predicted heart rate for age. BP response normal, no arrhythmias detected; pharmalogic nuclear stress test might be useful to better exclude possible underlying ischemia in this patient with extremely poor exercise tolerance. 24 Holter Monitor done 06/01/13: SR with 87 PVCs noted. No runs noted. No pauses noted. No arrythmias. Cardiac Echo was noted as being ordered but none found in packet of Medical Records. (See scanned record- Dr. Eliazar Lovett) Tear of medial meniscus of left knee (Acute) Hyponatremia (Acute) 02/2020- Na-124, recurrence, 01/2021-Na -129 presumed secondary to HCTZ Hypothyroidism (Chronic) hx of Hashimotos thyroiditis per pt Chronic kidney disease (Chronic) stage 3, 01/2021, Cr-1.4 PAD (peripheral artery disease) (Acute) 2019, right leg claudication , s/p stent, followed by [facility] vascular COVID-19 (Acute) 08/03/2021 Screening PSA (prostate specific antigen) (Acute) Screening for colon cancer (Acute) Medical History Tobacco abuse QUIT 08/2019, about 20 pk yr-declines lung cancer screen as of 09/2021 Positive colorectal cancer screening using Cologuard test COPD (chronic obstructive pulmonary disease) Pt. states he runs out of breath pretty quickly Hypolipidemia Urinary frequency Surgical History History of colonoscopy (~10/2022) Status post peripheral artery angioplasty with insertion of stent Stents in leg r/t to claudication pt. states pelvic area and mid thigh-[facility] History of tonsillectomy Family History Mother Asthma Dementia Father Heart disease Prostate cancer Brother No problems noted. Son No problems noted. Daughter No problems noted. Social History Smoking/Tobacco Use Status: Former Tobacco Use tobacco type: cigarettes Quit Date: 03/04/19 Pack-years: 40 Tobacco: How many years used: 40 Smoking risk assessment performed?: Yes Alcohol Intake: current Alcohol Intake frequency: a few times a week Alcohol type: beer Drug use: Never Substance use type: does not use and former substance user Date of last use: former marijuana use Adopted: No Caregiver/Support person: No Foster care: No Household members: spouse Housing: house Number of Children: 2 number of grandchildren: 3 Education Level: college Details: Some college/no degree Do you need help understanding health information?: Rarely current occupation: Retired Pets and animals: Yes Pets and animals: cat(s) and dog(s) Sexually active: Yes Do you think of yourself as: decline to answer Current gender identity: male What is your relationship status?: How often do you talk on the phone with friends or family?: three or more times per week How often do you get together with friends or relatives?: twice per week How often do you attend nondenominational or temple services?: decline to answer Do you belong to any clubs or organized social groups?: yes Panel score (0-1 are the most socially isolated patients): 3 What type of physical activity do you participate in: walking and bicycling Duration: 15-30 minutes/day Frequency: other Details: twice daily Radha/Yarsanism: Christianity Special radha needs: No Seatbelt use: always Drive intox or ride w/intox auto transport driver: No Firearms in home: No Do you feel safe at home: Yes Do you feel safe in your relationship?: Yes Victim of physical abuse: No Victim of emotional abuse: No Victim of sexual abuse: No Additional Social history: refuses to answer any emotional questions
[2023-08-01 14:50] VITALS: BP 158/89; PULSE 72; RESP 12; TEMP 36.7; O2SAT 97
== END 2023-08-01 15:13 | disposition home or self-care (01) ==
LOC: ER 15:06
PROVIDERS: Emergency Provider Emergency Medicine; PCP Nurse Practitioner Family
DX: S61.210D Laceration without foreign body of right index finger without damage to nail, subsequent encounter (principal); X58.XXXD Exposure to other specified factors, subsequent encounter
CPT/HCPCS: 99281

== ENCOUNTER 2024-02-04 01:17 | Outpatient (CLI) | payer MEDICARE, OTHER, SELFPAY ==
--- NOTE | 2024-02-04 07:30 | DI.RAD_ITS ---
Exam(s) XR CERVICAL SPINE COMP 4-5V EXAM: XR CERVICAL SPINE COMP 4-5V CLINICAL HISTORY: no improvement with PT, NECK PAIN, M54.2. TECHNIQUE: 2D digital imaging was performed. Five views were performed. COMPARISON: No exams were available for comparison FINDINGS: BONES: No fracture or destructive lesion. Vertebral bodies are unremarkable. Severe facet joint deg enerative changes throughout, greater on the left.. Multilevel neural foraminal narrowing, greater o n the left. DISKS: Severe narrowing at the C6-7 disc space. Prominent endplate osteophytes projecting anteriorly . The remaining intervertebral disc spaces are maintained. ALIGNMENT: Mild straightening of the normal cervical lordosis secondary to degenerative changes of th e facet joints. The odontoid and atlantoaxial articulations are normal. SOFT TISSUE: Normal. The lung apices are clear. IMPRESSION: Severe degenerative changes of the facet joints causing bilateral neural foraminal narrowing, left gr eater than right. Severe degenerative disc changes C6-7. DATA REPOSITORY: RADIATION DOSE DELIVERED:
== END 2024-02-04 01:37 ==
LOC: DI 01:17
PROVIDERS: PCP Nurse Practitioner Family; Visit Provider Nurse Practitioner Family
DX: M48.062 Spinal stenosis, lumbar region with neurogenic claudication (principal)
CPT/HCPCS: 72050

== ENCOUNTER 2024-02-10 14:02 | Outpatient (REF) | payer MEDICARE, OTHER, SELFPAY ==
--- NOTE | 2024-02-10 13:45 | SKI_PTH ---
PATIENT: Bryce Shields LOC: [facility] U#:[id number] AGE/SX: 73/M ROOM: RE02/10/[address]: Isauro Yan DNP : 1950 BED: DIS: 02/10/2024 SPEC #: [id number] RECD: 02/11/24 12:47 STATUS: ZAHIDA REQ #: [id number] ESSENCE: 02/10/24 13:[address]: Isauro Diallo DEPT: Surgical Specimen RECD BY: Neha Chavira Tissues: 1 - SKIN BIOPSY(SHAVE/PUNCH) 2 - SKIN BIOPSY(SHAVE/PUNCH) Procedures: SKIN LEVEL 4 Comments: [id number]
== END 2024-02-10 14:03 | disposition home or self-care (01) ==
LOC: LBN 14:02
PROVIDERS: PCP Nurse Practitioner Family; Visit Provider Nurse Practitioner Family
DX: L82.1 Other seborrheic keratosis (principal); L43.9 Lichen planus, unspecified
CPT/HCPCS: 88305

== ENCOUNTER 2024-02-28 00:44 | Outpatient (CLI) | payer MEDICARE, OTHER, SELFPAY ==
--- NOTE | 2024-02-28 07:30 | DI.MRI_ITS ---
Exam(s) MR CERVICAL SPINE WO EXAM: MR CERVICAL SPINE WO CLINICAL HISTORY: xray done, no relief with PT, neck pain, cervicalgia, M54.2 TECHNIQUE: Multiplanar multisequence MRI of the cervical spine was performed without intravenous con trast. COMPARISON: CR XR CERVICAL SPINE COMP 4-5V from 02/04/2024 FINDINGS: BONES: Vertebral body heights are maintained. Alignment is normal. Bone marrow signal intensity is wi thin normal limits. CERVICAL CORD: Craniovertebral junction is unremarkable. The cervical cord is normal size and signal intensity. SOFT TISSUES: Unremarkable. C2-3: Mild disc bulging. No disc herniation is identified. Bilateral neural foraminal narrowing, se weston on the left. No significant central canal stenosis. C3-4: Broad-based disc osteophytes and facet degenerative changes. Severe left and moderate right ne ural foraminal narrowing. Mild to moderate central canal stenosis. C4-5: No disc herniation or bulge is identified. Prominent facet degenerative changes on the left cau sing severe neural foraminal narrowing. mild right neural foraminal narrowing. No significant centr al canal stenosis. C5-6: No disc herniation or bulge is identified.Arm prominent facet degenerative changes cause severe neural foraminal narrowing. Mild right neural foraminal narrowing. No significant central canal st enosis. C6-7: Severe loss of disc height. Prominent endplate osteophytes. Facet degenerative changes. Manuela re bilateral neural foraminal narrowing. No significant central canal stenosis. C7-T1: No disc herniation or bulge is identified. Facet degenerative changes causing severe bilateral neural foraminal narrowing. No significant central canal stenosis. IMPRESSION: Broad-based disc osteophytes cause mild to moderate central canal stenosis at C3-4. Severe degenerative disc changes at C 6 7. Multilevel severe left-sided neural foraminal narrowing mainly secondary to facet joint osteophytes. DATA REPOSITORY:
== END 2024-02-28 01:04 ==
LOC: DI 00:44
PROVIDERS: PCP Nurse Practitioner Family; Visit Provider Nurse Practitioner Family
DX: M48.062 Spinal stenosis, lumbar region with neurogenic claudication (principal)
CPT/HCPCS: 72141

== ENCOUNTER 2024-03-24 21:20 | Outpatient (REF) | payer MEDICARE, OTHER, SELFPAY ==
[2024-03-24 21:54] LABS: HGB 15.3 g/dL (13.5-17.5); MCH 30.2 pg (27.0-33.0); MCHC 31.9 % (32.0-36.0); MCV 95 fL (80-95); MPV 10.8 fL (8.0-11.0); Platelet Count 214 10^3/uL (130-400); RBC 5.07 10^6/uL (4.36-5.78); RDW 13.4 % (11.8-14.1); WBC 7.66 10^3/uL (4.4-10.8)
[2024-03-24 22:19] LABS: ALT 22 U/L (16-63); AST 24 U/L (15-37); Albumin 4.3 g/dL (3.4-5.0); Alkaline Phosphatase 87 U/L (46-116); Anion Gap 6.2 mmol/L (3-11); BUN 18 mg/dL (7-18); Bilirubin, Total 0.45 mg/dL (0.2-1.0); CO2 31.8 mmol/L (21.0-32.0); CREATININE 1.2 mg/dL (0.70-1.30); Calcium 9.3 mg/dL (8.5-10.1); Calculated LDL 171 mg/dL (<100); Chloride 103 mmol/L (98-107); Cholesterol 269 mg/dL (<200); Estimated GFR 64.25 (mL/min/1.73m2); Glucose 87 mg/dL (74-106); HDL Cholesterol 60 mg/dL (40-60); Potassium 4.5 mmol/L (3.5-5.1); Sodium 141 mmol/L (136-145); TSH (W/Ref FT4) 20.82 uIU/mL (0.36-3.74); Total Protein 7.4 g/dL (6.4-8.2); Triglyceride 194 mg/dL (<150)
[2024-03-24 22:37] LABS: FREE T4 0.92 ng/dL (0.76-1.46)
== END 2024-03-24 21:21 | disposition home or self-care (01) ==
LOC: LBN 21:20
PROVIDERS: PCP Nurse Practitioner Family; Visit Provider Nurse Practitioner Family
DX: N40.0 Benign prostatic hyperplasia without lower urinary tract symptoms; E03.9 Hypothyroidism, unspecified; E78.00 Pure hypercholesterolemia, unspecified; Z12.5 Encounter for screening for malignant neoplasm of prostate
CPT/HCPCS: 80053; 80061; 84153; 85027; 84439; 84443

== ENCOUNTER 2024-04-14 02:37 | Outpatient (CLI) | payer MEDICARE, OTHER, SELFPAY ==
--- NOTE | 2024-04-14 07:21 | DI.CTLCSR_ITS ---
Exam(s) CT CHEST LUNG CANCER SCREEN EXAM: CT CHEST LUNG CANCER SCREEN CLINICAL HISTORY: Screening for lung cancer,h/o tobacco abuse, z87.891. TECHNIQUE: Imaging Protocol: Low Dose Technique CONTRAST MATERIAL: None COMPARISON: CT CT CHEST LUNG CANCER SCREEN from 04/08/2023 FINDINGS: CHEST: LUNGS: There few bilateral tiny calcified benign granulomas. Previously described finding in the rig ht upper lobe is less evident on the present study. There is a 2-3 mm unchanged nodular density in t he sub apical aspect of the right upper lobe.. There are no confluent infiltrates. No pleural effus ions. MEDIASTINUM: There is no obvious hilar nor mediastinal adenopathy. CARDIAC: Heart size is normal. There is no pericardial effusion.Caliber of the thoracic aorta is wit hin normal limits. OTHER: OSSEOUS: No significant osseous lesions.. IMPRESSION: 1. Stable benign appearing findings, as described above. 2. No new significant in lung nodules, infiltrates, nor pleural effusions. 3. Lung RADS Cat 2 - Benign Appearance / Behavior: Nodules with a very low likelihood of becoming a c linically active cancer due to size or lack of growth Lung-RADS 1.0 CATEGORIES: Category 0 - Prior chest CT exam(s) being located for comparison. Category 1 - Annual screening in 12 months. No nodules or definitely benign nodules. Category 2 - Annual screening in 12 months. Benign appearance. Nodules with low likelihood of becomin g active cancer. Category 3 - 6-month follow-up. Probably benign. Short-term follow-up suggested. Nodules with low lik elihood of becoming active cancer. Category 4A - 3-month follow-up and CT/PET if >8 mm in size. Suspicious finding. Findings which requi re additional testing. Category 4B - Findings which require additional testing and tissue sampling. Category 4X - Category 3 or 4 nodules with additional features or imaging findings that increases the suspicion of malignancy. Modifier S- Potentially clinically significant findings (non lung cancer) RADIATION DOSE DELIVERED: 26.07mGy.cm Total DLP DATA REPOSITORY: All CT scans at this facility are submitted to the National Radiology Data Registry (NRDR) Dose Index Registry (DIR) with the [employer] (A[employer]). RADIATION OPTIMIZATION: All CT scans at this facility use at least one of these dose optimization te chniques: automated exposure control; mA and/or kV adjustment per patient size (includes targeted exa ms where dose is matched to clinical indication); or iterative reconstruction.
== END 2024-04-14 02:57 ==
LOC: DI 02:37
PROVIDERS: PCP Nurse Practitioner Family; Visit Provider Nurse Practitioner Family
DX: Z12.2 Encounter for screening for malignant neoplasm of respiratory organs (principal); F17.210 Nicotine dependence, cigarettes, uncomplicated
CPT/HCPCS: 71271

== ENCOUNTER 2024-06-08 03:33 | Outpatient (CLI) | payer MEDICARE, OTHER, SELFPAY ==
[2024-06-08 13:02] LABS: FREE T4 1.53 ng/dL (0.76-1.46)
== END 2024-06-08 03:34 | disposition home or self-care (01) ==
LOC: LOS 03:33
PROVIDERS: PCP Nurse Practitioner Family; Visit Provider Nurse Practitioner Family
DX: E03.9 Hypothyroidism, unspecified (principal)
CPT/HCPCS: 36415; 84439; 84443

== ENCOUNTER 2024-10-03 12:50 | Outpatient (REF) | payer MEDICARE, OTHER, SELFPAY ==
[2024-10-03 16:10] LABS: HCT 46.0 % (40.0-50.0); HGB 15.2 g/dL (13.5-17.5); MCH 30.4 pg (27.0-33.0); MCHC 33.0 % (32.0-36.0); MCV 92 fL (80-95); MPV 11.1 fL (8.0-11.0); Platelet Count 205 10^3/uL (130-400); RBC 5.00 10^6/uL (4.36-5.78); RDW 13.2 % (11.8-14.1); RDW-SD 44.2 fL; WBC 10.34 10^3/uL (4.4-10.8)
[2024-10-03 16:30] LABS: ALT 25 U/L (16-63); AST 25 U/L (15-37); Albumin 4.8 g/dL (3.4-5.0); Alkaline Phosphatase 101 U/L (46-116); Anion Gap 8.6 mmol/L (3-11); BUN 19 mg/dL (7-18); Bilirubin, Total 0.9 mg/dL (0.2-1.0); CO2 30.4 mmol/L (21.0-32.0); Calcium 9.5 mg/dL (8.5-10.1); Chloride 101 mmol/L (98-107); Estimated GFR 70.88 (mL/min/1.73m2); Glucose 92 mg/dL (74-106); Potassium 4.0 mmol/L (3.5-5.1); Sodium 140 mmol/L (136-145); TSH (W/Ref FT4) 1.00 uIU/mL (0.36-3.74); Total Protein 7.9 g/dL (6.4-8.2)
[2024-10-03 16:44] LABS: Glucose Negative (Negative)
[2024-10-03 17:11] LABS: C & S Indicated? No; WBC 0-2 HPF (0-5)
== END 2024-10-03 12:51 | disposition home or self-care (01) ==
LOC: LBN 12:50
PROVIDERS: PCP Nurse Practitioner Family; Visit Provider Nurse Practitioner Family
DX: R53.83 Other fatigue (principal); R31.9 Hematuria, unspecified; R63.4 Abnormal weight loss
CPT/HCPCS: 80053; 85027; 81003; 81015; 84443

== ENCOUNTER 2024-10-16 00:23 | Outpatient (CLI) | payer MEDICARE, OTHER, SELFPAY ==
[2024-10-16] MEDS: Barium Sulfate 2% W/V-Berry Smoothie 450 ML BTL PO ×2 (08:41→08:42)
[2024-10-16] MEDS: Omnipaque 350 MG/ML 100 ML BTL IJ (11:03)
[2024-10-16] MEDS: Normal Saline - Diluent 50 ML VIAL IJ (11:04)
[2024-10-16] MEDS: Normal Saline Flush 10 ML SYR IVP (11:05)
--- NOTE | 2024-10-16 11:10 | DI.CT_ITS ---
Exam(s) CT CHEST/ABD/PEL W EXAM: CT CHEST/ABD/PEL W CLINICAL HISTORY: wt loss, night sweats, altered taste, malaise. TECHNIQUE: Imaging Protocol: Axial computed tomography images with coronal and sagittal reformatted images were created and reviewed. Computer aided detection (CAD) was utilized. CONTRAST MATERIAL: Intravenous: Omnipaque 350 Contrast volume:100 ml Oral: yes COMPARISON: US US AAA SCREENING from 04/08/[address] CHEST LUNG CANCER SCREEN from 04/14/2024 FINDINGS: CHEST: Pulmonary parenchyma: No consolidation. No dominant measurable mass. Mild emphysematous changes. Tracheobronchial tree: No bronchiectasis. No mucous plugging.No bronchial wall thickening. Pleura: No effusion or pneumothorax. Mediastinum: Within normal limits. Pulmonary arteries: The pulmonary arteries are well opacified with IV contrast. No visible emboli. Cardiovascular: Heart is not enlarged. Coronary artery calcifications are noted. No pericardial effusion. Thoracic aorta non-dilated. Bones: Pectus excavatum deformity. No lytic or blastic lesions. Stable mild compression fracture T6. Mild degenerative changes. Soft tissues: Unremarkable. ABDOMEN and PELVIS: Liver: Normal density. No suspicious mass. Gallbladder and biliary tract: No evidence of stones or wall thickening. No biliary dilatation. Pancreas: Normal density, no abnormal calcifications or inflammatory process. Spleen: Normal. Kidneys: Normal size, contour and axis. No radiodense stones. No obstructive uropathy. No suspicious masses seen. Adrenal glands: No masses seen. Aorta: Abdominal portion non-dilated. Heavily calcified. Focal aneurysm with mural thrombus noted in the mid to distal portion measuring 3.5 cm. Left iliac artery stents are in place which appear patent. Lymph nodes: Within normal limits. Soft tissues: Unremarkable. Bladder: Unremarkable. Bowel: Administered oral contrast extends to the level of the rectum. No obstruction or bowel wall thickening. No visible mass. Peritoneal cavity: No ascites. No focal collection. No mesenteric inflammatory response. No free air. Bones: Unremarkable for age. Reproductive organs: Unremarkable for age. IMPRESSION: No acute abnormality in the chest, abdomen or pelvis. 3.5 centimeter abdominal aortic aneurysm with mural thrombus, increased from prior exam where it measured 3 cm. RADIATION DOSE DELIVERED: 512.27mGy.cm Total DLP DATA REPOSITORY: All CT scans at this facility are submitted to the National Radiology Data Registry (NRDR) Dose Index Registry (DIR) with the [employer] (ACR). RADIATION OPTIMIZATION: All CT scans at this facility use at least one of these dose optimization techniques: automated exposure control; mA and/or kV adjustment per patient size (includes targeted exams where dose is matched to clinical indication); or iterative reconstruction.
== END 2024-10-16 00:43 ==
LOC: DI 00:23
PROVIDERS: PCP Nurse Practitioner Family; Visit Provider Nurse Practitioner Family
DX: R53.83 Other fatigue (principal); R63.4 Abnormal weight loss; R61 Generalized hyperhidrosis; I71.40 Abdominal aortic aneurysm, without rupture, unspecified
CPT/HCPCS: 74177; 71260; J3490

== ENCOUNTER 2024-11-10 14:36 | Observation (INO) | payer MEDICARE, OTHER, SELFPAY ==
[2024-11-10] VITALS (9 sets, daily range): BP systolic 123–210; BP diastolic 83–109; PULSE 66–116; RESP 14–16; TEMP 36.2–36.7; O2SAT 95–97
--- NOTE | 2024-11-10 14:45 | DI.RAD_ITS ---
Exam(s) XR FOOT RT COMPLETE EXAM: XR FOOT RT COMPLETE CLINICAL HISTORY: trauma. TECHNIQUE: 2D digital imaging was performed. COMPARISON: No exams were available for comparison FINDINGS: 3 views There is bandage material over the medial aspect of the foot specifically over the 1st metatarsal and phalanges. On the oblique view there is a nondisplaced oblique fracture in distal half the proximal phalanx of the 3rd toe. There are 2 small calcific densities adjacent to the medial aspect of the base of the proximal phalanx of the 2nd toe, both measuring 1-2 mm and seen on the oblique view. These may be avulsion fragments at this level. There are moderate-advanced degenerative changes in the great toe metatarsophalangeal joint including joint space narrowing, degenerative subarticular cysts on both sides the joint and marginal osteophytes. In addition, there are lucent areas with in the entire length of the proximal phalanx of the great toe, more so than can be accounted for by degenerative subarticular cysts. However, these are not expansile and not associated with cortical breakthrough. No obvious osteomyelitis. No radiopaque foreign bodies. IMPRESSION: On the oblique view there are 2 adjacent similar appearing 1-2 mm osteophytic densities seen just medial to the base of the proximal phalanx of the 2nd toe. These may represent avulsion fracture fragments at this level. Correlation with site of tenderness is recommended. On the oblique view there appears to be a nondisplaced oblique fracture in the distal half of the proximal phalanx of the 3rd toe. Advanced degenerative changes in the great toe metatarsophalangeal joint. Cystic changes also noted in the proximal phalanx of the great toe but no fractures at this level evident. DATA REPOSITORY: RADIATION DOSE DELIVERED:
--- NOTE | 2024-11-10 14:51 | W.ED.GENAD ---
Discharge Plan Disposition Patient Disposition: Admit to [facility] Condition: Good Discharge Details Clinical Impression: Laceration of foot, right, complicated Primary Care Provider: Isauro Diallo ED Provider: Wesley Pratt Meds and New Rx's Prescriptions: No Action (DME) Aerochamber MV Spacer See Rx Instructions .Route Qty: 1 0RF Rx Instructions: As directed albuterol sulfate 90 mcg/actuation HFA aerosol inhaler 2 puff inhalation Q6H PRN (Reason: shortness of breath or wheezing) Qty: 8.5 0RF mirtazapine 7.5 mg tablet 7.5 mg PO QHS Qty: 90 0RF atenolol 25 mg tablet 25 mg PO DAILY Qty: 90 3RF levothyroxine 112 mcg tablet 112 mcg PO DAILY Qty: 90 4RF aripiprazole 20 mg tablet 20 mg PO QHS Qty: 90 0RF amlodipine-benazepril 5-40 mg capsule 1 cap PO DAILY Qty: 90 1RF HPI General Mode of arrival: ambulatory. Date/Time Provider Initiated Documentation: 11/10/24 14:51. Limitations to Documentation: no limitations. Information obtained by: patient, RN notes reviewed and old records reviewed. HPI Narrative: Patient presents to ED with right foot injury. Patient was cutting wood with a chainsaw when a chain struck his foot. Initially hit a steel plate protecting the toes but kicked back and went through the boot. He is ambulatory. Bleeding controlled at this point. He is able to flex and extend his toes and denies any numbness in the toes. He is not sure of his tetanus status. Denies any other injury. Related Data Home Medications ?Medication ?Instructions ?Recorded ?Confirmed inhalational spacing device #1 ea 07/02/22 11/10/24 (Aerochamber MV spacer) albuterol sulfate 90 mcg/actuation 2 puff inhalation Q6H PRN 04/16/23 11/10/24 aerosol inhaler shortness of breath or wheezing #8.5 grams atenolol 25 mg tablet 25 mg PO DAILY #90 tabs 07/08/23 11/10/24 levothyroxine 112 mcg tablet 112 mcg PO DAILY #90 tabs 06/15/24 11/10/24 aripiprazole 20 mg tablet 20 mg PO QHS #90 tabs 09/03/24 11/10/24 mirtazapine 7.5 mg tablet 7.5 mg PO QHS #90 tabs 10/03/24 11/10/24 amlodipine 5 mg-benazepril 40 mg 1 cap PO DAILY #90 caps 10/21/24 11/10/24 capsule Previous Rx's ?Medication ?Instructions ?Recorded inhalational spacing device #1 ea 07/02/22 (Aerochamber MV spacer) albuterol sulfate 90 mcg/actuation 2 puff inhalation Q6H PRN 04/16/23 aerosol inhaler shortness of breath or wheezing #8.5 grams atenolol 25 mg tablet 25 mg PO DAILY #90 tabs 07/08/23 levothyroxine 112 mcg tablet 112 mcg PO DAILY #90 tabs 06/15/24 aripiprazole 20 mg tablet 20 mg PO QHS #90 tabs 09/03/24 mirtazapine 7.5 mg tablet 7.5 mg PO QHS #90 tabs 10/03/24 amlodipine 5 mg-benazepril 40 mg 1 cap PO DAILY #90 caps 10/21/24 capsule Allergies Allergy/AdvReac Type Severity Reaction Status Date / Time Gadolinium-Containing Allergy Mild rash Verified 11/10/24 14:47 Contrast Medi Penicillins AdvReac Hives Verified 11/10/24 14:47 General Stated Complaint: Trauma TERESITA: 3 Exam Narrative Exam Narrative: Const: WDWN elderly male in NAD. VS per triage. HEENT: NC/AT. Normal facial exam. Neck: Supple. Trachea midline. Lungs: Normal respiratory effort. Neuro: A+O x 3. Normal speech, mentation, gait. Cranial nerves II - XII grossly intact. No gross motor or sensory deficit. Ext: No C/C/E. Laceration across the dorsum of the foot extending from first metatarsal head to the third metatarsal head, right over the area the joints. He is able to pull the toes back but appears to have weakness especially of the second toe. Distal sensory and capillary refill is intact. Course Vital Signs Vital signs: Vital Signs Temperature 98.1 F 11/10/24 14:43 Pulse 116 H 11/10/24 14:43 Respiratory Rate 16 11/10/24 14:43 Blood Pressure 210/109 H 11/10/24 14:43 Pulse Oximetry 96 11/10/24 14:43 Temperature 98.1 F 11/10/24 14:43 Temperature Source Temporal Artery Scan 11/10/24 14:43 Pulse 116 H 11/10/24 14:43 Respiratory Rate 16 11/10/24 14:43 Blood Pressure 210/109 H 11/10/24 14:43 Blood Pressure Position Sitting 11/10/24 14:43 Pulse Oximetry 96 11/10/24 14:43 Oxygen Delivery Method Room Air 11/10/24 14:43 Oxygen Flow Rate 0 11/10/24 14:43 Pain Level 8 11/10/24 14:43 Medical Decision Making Patient presenting to ED with laceration sustained from chainsaw cutting through his boot into the dorsum of the foot just over the area of the first, second, third MTP joint. Has some weakness/inability to pull his toes up and back against resistance, mostly second toe. Sensation and cap refill intact. Bleeding controlled. Review of his record shows that tetanus was given in 2020. Will establish IV and give 2 g Ancef, 4 g morphine, irrigate wound and obtain foot x-ray. X-ray per my review and per radiology read without fracture or injury involving the metatarsal heads. Does appear to have a nondisplaced fracture of the distal end proximal phalanx third toe. Patient seen by orthopedics, Dr. Goetz, in the ED. Plan to go to the OR for washout and repair. Medical Records Medical records reviewed: Yes I reviewed the patient's medical records. Imaging Data Radiologic Study: Attestation: I personally reviewed and interpreted this imaging study as follows: Imaging: X-Ray My impression: see [facility] All Active Problems (Updated 11/10/24 @ 17:19 by Wesley Pratt MD) Laceration of foot, right, complicated (Acute) Laceration of right foot with tendon involvement (Acute) Hematuria (Acute) Night sweats (Acute) Weight loss (Acute) Fatigue (Acute) Skin lesions (Acute) Neck pain (Acute) History of tobacco abuse (Acute) Tubular adenoma (Acute ~10/2022) Colon polyp, hyperplastic (Acute ~10/2022) Hypercholesteremia (Chronic) BPH w/o urinary obs/LUTS (Acute) Essential hypertension (Acute Unknown) Anxiety (Chronic) History of chest pain (Chronic) Per CT records: EKG NSR without acute changes 05/05/2013, Stress Test:Extremely poor exercise capacity but negative stress test without EKG changes at 91% of maximum predicted heart rate for age. BP response normal, no arrhythmias detected; pharmalogic nuclear stress test might be useful to better exclude possible underlying ischemia in this patient with extremely poor exercise tolerance. 24 Holter Monitor done 06/01/13: SR with 87 PVCs noted. No runs noted. No pauses noted. No arrythmias. Cardiac Echo was noted as being ordered but none found in packet of Medical Records. (See scanned record- Dr. Eliazar Lovett) Tear of medial meniscus of left knee (Acute) Hyponatremia (Acute) 02/2020- Na-124, recurrence, 01/2021-Na -129 presumed secondary to HCTZ Hypothyroidism (Chronic) hx of Hashimotos thyroiditis per pt Chronic kidney disease (Chronic) stage 3, 01/2021, Cr-1.4 PAD (peripheral artery disease) (Acute) 2019, right leg claudication , s/p stent, followed by [facility] Screening for colon cancer (Acute) Medical History Screening PSA (prostate specific antigen) COVID-19 08/03/2021 Positive colorectal cancer screening using Cologuard test COPD (chronic obstructive pulmonary disease) Pt. states he runs out of breath pretty quickly Hypolipidemia Tobacco abuse QUIT 08/2019, about 20 pk yr-declines lung cancer screen as of 09/2021 Urinary frequency Surgical History History of colonoscopy (~10/2022) Status post peripheral artery angioplasty with insertion of stent Stents in leg r/t to claudication pt. states pelvic area and mid thigh-[facility] [place] History of tonsillectomy Family History Mother Asthma Dementia Father Heart disease Prostate cancer Brother No problems noted. Son No problems noted. Daughter No problems noted. Social History Smoking/Tobacco Use Status: Former Tobacco Use tobacco type: cigarettes Quit Date: 03/04/21 Pack-years: 40 Tobacco: How many years used: 40 Second Hand Exposure: Yes Smoking risk assessment performed?: Yes Alcohol Intake: current Alcohol Intake frequency: a few times a month Alcohol type: beer Drug use: Socially Substance use type: marijuana Adopted: No Caregiver/Support person: No Foster care: No Household members: spouse Housing: house Number of Children: 2 number of grandchildren: 3 Education Level: college Details: Some college/no degree Do you need help understanding health information?: Rarely current occupation: Retired Pets and animals: Yes Pets and animals: cat(s) and dog(s) Sexually active: Yes Do you think of yourself as: decline to answer Current gender identity: male What is your relationship status?: How often do you talk on the phone with friends or family?: three or more times per week How often do you get together with friends or relatives?: twice per week How often do you attend scientology or bahai services?: decline to answer Do you belong to any clubs or organized social groups?: yes Panel score (0-1 are the most socially isolated patients): 3 What type of physical activity do you participate in: walking and bicycling Duration: 15-30 minutes/day Frequency: other Details: twice daily Radha/Baptist: Taoism Special radha needs: No Seatbelt use: always Drive intox or ride w/intox 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
[2024-11-10] MEDS: MORPHine 4 MG/ML SYR IVP (15:36)
[2024-11-10] MEDS: ceFAZolin 2 GM/50 ML BAG IVPB (15:50)
--- NOTE | 2024-11-10 16:54 | OCONE_ITS ---
Date of service: 11/10/24 Time of Service: 16:54 History of Present Illness History of Present Illness Chief Complaint: Right Foot Chainsaw Injury Narrative: Isiah is a 74-year-old male who was using a chainsaw today when he tried to pull i t out of a stuck tree and it kicked back onto his right foot. He was wearing steel toe boots at the time. He was brought to the emergency department and seen to have a large laceration over the dorsum of the right foot. He reports some slight diminished sensation over the dorsum of the great toe although he endorses sensation at the tip medially and laterally. He has a history of a bunion and hallux rigidus of the right foot. He was in his usual state of health prior to this event today. Consults Consult date: 11/10/24 Requesting physician: Wesley Pratt Consult Reason Chainsaw injury to right foot Assessment and Plan Assessment and plan (1) Laceration of right foot with tendon involvement: Status: Acute Assessment and plan: Isiah is a 74-year-old male has a complex laceration of the right foot from a chainsaw involving bone and tendon. He also has some skin loss over the dorsum of the foot. Given this appearance and involvement of deeper structures I recommend we proceed to the operating room. He did have a full meal about 5 hours ago and therefore we will perform this with local anesthetic. I will investigate the tendons and likely do a tendon repair if indicated, particular on the great toe where I think he got some the dorsal urban of the extensor mechanism. I should be able to mobilize skin to close the wound and not leave a defect. We will thoroughly irrigate this as well. He will plan to go home afterwards. I reviewed the reasons for proceed to the operating to clean this out and close the wound. I discussed the risk to include wound dehiscence, infection, pain, stiffness, bleeding, lack of toe extension or other deformity. He also has some decrease sensation and is unlikely that I will be repair any of the peripheral nerves at this region and therefore he may have some residual numbness. All his questions were answered. He will proceed to the operating ro om shortly. Review of Systems All systems reviewed & are unremarkable except as noted in HPI and below PFSH All Active Problems (Updated 11/10/24 @ 17:01 by Luis Goetz MD) Laceration of right foot with tendon involvement (Acute) Hematuria (Acute) Night sweats (Acute) Weight loss (Acute) Fatigue (Acute) Skin lesions (Acute) Neck pain (Acute) History of tobacco abuse (Acute) Tubular adenoma (Acute ~10/2022) Colon polyp, hyperplastic (Acute ~10/2022) Hypercholesteremia (Chronic) BPH w/o urinary obs/LUTS (Acute) Essential hypertension (Acute Unknown) Anxiety (Chronic) History of chest pain (Chronic) Per CT records: EKG NSR without acute changes 05/05/2013, Stress Test:Extremely poor exercise capacity but negative stress test without EKG changes at 91% of maximum predicted heart rate for age. BP response normal, no arrhythmias detected; pharmalogic nuclear stress test might be useful to better exclude possible underlying ischemia in this patient with extremely poor exercise tolerance. 24 Holter Monitor done 06/01/13: SR with 87 PVCs noted. No runs noted. No pauses noted. No arrythmias. Cardiac Echo was noted as being ordered but none found in packet of Medical Records. (See scanned record- Dr. Eliazar Lovett) Tear of medial meniscus of left knee (Acute) Hyponatremia (Acute) 02/2020- Na-124, recurrence, 01/2021-Na -129 presumed secondary to HCTZ Hypothyroidism (Chronic) hx of Hashimotos thyroiditis per pt Chronic kidney disease (Chronic) stage 3, 01/2021, Cr-1.4 PAD (peripheral artery disease) (Acute) 2019, right leg claudication , s/p stent, followed by [facility] vascular Screening for colon cancer (Acute) Medical History Screening PSA (prostate specific antigen) COVID-19 08/03/2021 Positive colorectal cancer screening using Cologuard test COPD (chronic obstructive pulmonary disease) Pt. states he runs out of breath pretty quickly Hypolipidemia Tobacco abuse QUIT 08/2019, about 20 pk yr-declines lung cancer screen as of 09/2021 Urinary frequency Surgical History History of colonoscopy (~10/2022) Status post peripheral artery angioplasty with insertion of stent Stents in leg r/t to claudication pt. states pelvic area and mid thigh-[facility] History of tonsillectomy Family History Mother Asthma Dementia Father Heart disease Prostate cancer Brother No problems noted. Son No problems noted. Daughter No problems noted. Social History Smoking/Tobacco Use Status: Former Tobacco Use tobacco type: cigarettes Quit Date: 03/04/21 Pack-years: 40 Tobacco: How many years used: 40 Second Hand Exposure: Yes Smoking risk assessment performed?: Yes Alcohol Intake: current Alcohol Intake frequency: a few times a month Alcohol type: beer Drug use: Socially Substance use type: marijuana Adopted: No Caregiver/Support person: No Foster care: No Household members: spouse Housing: house Number of Children: 2 number of grandchildren: 3 Education Level: college Details: Some college/no degree Do you need help understanding health information?: Rarely current occupation: Retired Pets and animals: Yes Pets and animals: cat(s) and dog(s) Sexually active: Yes Do you think of yourself as: decline to answer Current gender identity: male What is your relationship status?: How often do you talk on the phone with friends or family?: three or more times per week How often do you get together with friends or relatives?: twice per week How often do you attend episcopal or tenriism services?: decline to answer Do you belong to any clubs or organized social groups?: yes Panel score (0-1 are the most socially isolated patients): 3 What type of physical activity do you participate in: walking and bicycling Duration: 15-30 minutes/day Frequency: other Details: twice daily Radha/Confucianist: Bahai Special radha needs: No Seatbelt use: always Drive intox or ride w/intox 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 There is a 1 cm gap of tissue around the 2nd and 3rd toe. He is able demonstrate active extension and flexion of the toes although terminal extension of the DIP joint of the 2nd and 3rd in the IP joint the first is limited and held in flexion. There is no gross contamination. There is a bony block to extension of the MTP joint of the right great toe. He is able to extend the MTP joint although with a flexed IP joint the great toe. While he has limited extension of the DIP joint of the 2nd and 3rd toe the posture of the toes is similar to the 4th and 5th toes with a slight hammer deformity. He reports some decrease sensation over the dorsum of the great toe and the lateral aspect of the great toe although he still endorses some sensation. Sensation intact to the plantar aspect of the 2nd and 3rd toes and diminished over the dorsum. Results Last Vital Signs Temp 36.7 C 11/10/24 14:43 Pulse 116 H 11/10/24 14:43 Resp 16 11/10/24 14:43 BP 210/109 H 11/10/24 14:43 Pulse Ox 96 11/10/24 14:43 Imaging Imaging Studies: X-ray of the right foot shows a few small prasanna of bone from the proximal aspect of the second proximal phalanx and the third proximal phalanx. No complete fractures identified. There are chronic changes seen within the first metatarsal and great toe proximal phalanx.
--- NOTE | 2024-11-10 17:49 | W.PM.DS.N ---
Date of service: 11/10/24 Time of Service: 19:43 DS: Diagnosis Discharge Diagnosis (1) Laceration of right foot with tendon involvement: Status: Acute Discharge Plan Disposition Patient Disposition: Home Condition: Good Discharge Details Reason For Visit: cut foot chainsaw Attending Provider: Luis Goetz Primary Care Provider: Isauro Diallo Home Meds and New Rx's Prescriptions: New hydrocodone-acetaminophen 5-325 mg tablet 1 tab PO Q6H PRN (Reason: pain) Qty: 8 0RF acetaminophen 500 mg tablet 500 mg PO Q6H PRN PRN (Reason: pain) Qty: 40 3RF cefadroxil 500 mg capsule 500 mg PO BID Qty: 6 0RF ibuprofen 600 mg tablet 600 mg PO TID PRN (Reason: pain) Qty: 60 3RF Continued (DME) Aerochamber MV Spacer See Rx Instructions .Route Qty: 1 0RF Rx Instructions: As directed albuterol sulfate 90 mcg/actuation HFA aerosol inhaler 2 puff inhalation Q6H PRN (Reason: shortness of breath or wheezing) Qty: 8.5 0RF mirtazapine 7.5 mg tablet 7.5 mg PO QHS Qty: 90 0RF atenolol 25 mg tablet 25 mg PO DAILY Qty: 90 3RF levothyroxine 112 mcg tablet 112 mcg PO DAILY Qty: 90 4RF aripiprazole 20 mg tablet 20 mg PO QHS Qty: 90 0RF amlodipine-benazepril 5-40 mg capsule 1 cap PO DAILY Qty: 90 1RF Discharge Instructions Additional Instructions: Ankle ORIF Discharge Instructions Activity: You weight bearing as tolerated in the post-op shoe. You may walk with the shoe on but do not weight bear through the forefoot without the postop shoe. You should keep the leg elevated as much as possible. Do not try to move the toes into a flexed position as they recover from the injury. You may apply ice. Dressings: You should the foot wrapped until follow-up. Do NOT get wet or dirty. If you have issues with the dressing, please call the office at [phone] or the hospital after hours. If it gets soiled then it will need to be rewrapped. Medications: - You should take Tylenol and Ibuprofen around the clock for baseline pain. - You have been prescribed a stronger narcotic for breakthrough pain. - You will take an antibiotic for 3 days, starting tomorrow. - You should take a Baby Aspirin (81mg) twice a day for blood clot prevention. Follow-up: 10 days Referrals: Luis oGetz MD [ [facility] STAFF PHYSICIAN, Orthopaedic Surgical] Equipment/Supplies: Splint Activity:: Elevate Remove Dressings/Wound Care:: 72 hours Diet:: As Tolerated Discharge Orders Discharge Orders: Discharge Order (Routine); Ordered 11/10/24 Ordered By: Luis Goetz DS: Summary Time Spent with Patient providing and/or coordinating discharge services: Less than 30 minutes Status at Discharge Functional status at discharge: independent ambulation Overall status at discharge: patient is progressing back to baseline Mental Status: mental status grossly normal Speech and Movement: speech and movement normal Mood: congruent mood Affect: normal affect Exam Psych Mental Status: mental status grossly normal Speech and Movement: speech and movement normal Mood: congruent mood Affect: normal affect DS: Data Vitals/I&O Vitals and I&O: Vital Signs Temperature 36.2 C L 11/10/24 17:37 Temperature Source Temporal Artery Scan 11/10/24 14:43 Pulse 66 11/10/24 17:37 Pulse Rhythm Regular 11/10/24 17:37 Respiratory Rate 14 11/10/24 17:37 Respiratory Effort Normal, Non-Labored 11/10/24 14:56 Respiratory Depth Normal 11/10/24 17:37 Respiratory Pattern Normal 11/10/24 14:56 Blood Pressure 156/89 H 11/10/24 17:37 Blood Pressure Mean 94 11/10/24 15:46 Blood Pressure Position Sitting 11/10/24 14:43 Pulse Oximetry 95 11/10/24 17:37 Oxygen Delivery Method Room Air 11/10/24 17:37 Oxygen Flow Rate 0 11/10/24 17:37 Pain Level 3 11/10/24 17:37 Intake & Output 11/09/24 11/10/24 11/10/24 23:59 11:59 23:59 Intake Total 50 / 50 Balance 50 / 50 Weight 68.039 kg Intake: IV 50 / 50 PFSH All Active Problems Laceration of foot, right, complicated (Acute) Laceration of right foot with tendon involvement (Acute) Hematuria (Acute) Night sweats (Acute) Weight loss (Acute) Fatigue (Acute) Skin lesions (Acute) Neck pain (Acute) History of tobacco abuse (Acute) Tubular adenoma (Acute ~10/2022) Colon polyp, hyperplastic (Acute ~10/2022) Hypercholesteremia (Chronic) BPH w/o urinary obs/LUTS (Acute) Essential hypertension (Acute Unknown) Anxiety (Chronic) History of chest pain (Chronic) Per CT records: EKG NSR without acute changes 05/05/2013, Stress Test:Extremely poor exercise capacity but negative stress test without EKG changes at 91% of maximum predicted heart rate for age. BP response normal, no arrhythmias detected; pharmalogic nuclear stress test might be useful to better exclude possible underlying ischemia in this patient with extremely poor exercise tolerance. 24 Holter Monitor done 06/01/13: SR with 87 PVCs noted. No runs noted. No pauses noted. No arrythmias. Cardiac Echo was noted as being ordered but none found in packet of Medical Records. (See scanned record- Dr. Eliazar Lovett) Tear of medial meniscus of left knee (Acute) Hyponatremia (Acute) 02/2020- Na-124, recurrence, 01/2021-Na -129 presumed secondary to HCTZ Hypothyroidism (Chronic) hx of Hashimotos thyroiditis per pt Chronic kidney disease (Chronic) stage 3, 01/2021, Cr-1.4 PAD (peripheral artery disease) (Acute) 2019, right leg claudication , s/p stent, followed by [facility] vascular Screening for colon cancer (Acute) Medical History Screening PSA (prostate specific antigen) COVID-19 08/03/2021 Positive colorectal cancer screening using Cologuard test COPD (chronic obstructive pulmonary disease) Pt. states he runs out of breath pretty quickly Hypolipidemia Tobacco abuse QUIT 08/2019, about 20 pk yr-declines lung cancer screen as of 09/2021 Urinary frequency Surgical History History of colonoscopy (~10/2022) Status post peripheral artery angioplasty with insertion of stent Stents in leg r/t to claudication pt. states pelvic area and mid thigh-[facility] History of tonsillectomy Family History Mother Asthma Dementia Father Heart disease Prostate cancer Brother No problems noted. Son No problems noted. Daughter No problems noted. Social History Smoking/Tobacco Use Status: Former Tobacco Use tobacco type: cigarettes Quit Date: 03/04/21 Pack-years: 40 Tobacco: How many years used: 40 Second Hand Exposure: Yes Smoking risk assessment performed?: Yes Alcohol Intake: current Alcohol Intake frequency: a few times a month Alcohol type: beer Drug use: Socially Substance use type: marijuana Details: 1 bowl daily is average. Adopted: No Caregiver/Support person: No Foster care: No Household members: spouse Housing: house Number of Children: 2 number of grandchildren: 3 Education Level: college Details: Some college/no degree Do you need help understanding health information?: Rarely current occupation: Retired Pets and animals: Yes Pets and animals: cat(s) and dog(s) Sexually active: Yes Do you think of yourself as: decline to answer Current gender identity: male What is your relationship status?: How often do you talk on the phone with friends or family?: three or more times per week How often do you get together with friends or relatives?: twice per week How often do you attend synagogue or spiritism services?: decline to answer Do you belong to any clubs or organized social groups?: yes Panel score (0-1 are the most socially isolated patients): 3 What type of physical activity do you participate in: walking and bicycling Duration: 15-30 minutes/day Frequency: other Details: twice daily Radha/Yarsanism: Nondenominational Special radha needs: No Seatbelt use: always Drive intox or ride w/intox 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
[2024-11-10] MEDS: Bupivacaine 0.25% Pres-Free W/EPI 30 ML VIAL (18:50)
[2024-11-10] MEDS: Lidocaine 1% Pres-Free 30 ML VIAL (18:50)
[2024-11-10] MEDS: Normal Saline Flush 10 ML SYR IVP (18:51)
[2024-11-10] MEDS: cefTRIAXone 1 GM/50 ML BAG IVPB (18:51)
--- NOTE | 2024-11-10 19:44 | W.PM.OP ---
Operative Note Operative Note PRE-OP DIAGNOSIS: Right Complex Foot Laceration involving bone and tendon POST-OP DIAGNOSIS: same (Tendon laceration involving EHL and EDC to 2nd and 3rd Toes) PROCEDURE: Irrigation and Debridement of 8cm wound including bone and tendon - RIGHT foot Tendon repair of 3 extensor tendons of the RIGHT foot SURGEON: Luis Goetz ANESTHESIA TYPE: Local By Surgeon Refer to Anesthesia Record ESTIMATED BLOOD LOSS: 10 TOURNIQUET TIME: 0 COMPLICATIONS: None Patient was transported to: floor Patient's condition: stable Indications: Isiah is a 74-year-old male who unfortunately suffered a chainsaw injury to his right foot. The laceration was complex across the dorsum of the foot involving multiple tendons and some of the bone. Therefore, I recommend we proceed to the operating room for irrigation debridement, evaluation of injured structures and repair as indicated. I discussed the risk to include bleeding, pain, stiffness, infection, retear, skin healing difficulties, wound dehiscence, arthritis, weakness. Despite these risks, he elects to proceed. Findings: There was an irregular 8 cm incision over the dorsum of the foot which went down to bone at the base of the 2nd and 3rd toe proximal phalanx with lacerations of the extensor tendon to the great toe, second toe, and third toe. Procedure Description: Isiah was transferred to the day surgery unit from the emergency department. His identity was confirmed and the correct site identified. History and physical was updated and consent was obtained. He is not taken back to the operating room where he was kept on the stretcher with the right foot elevated. He received preoperative antibiotics in the emergency department in the form of cefazolin. A timeout was then performed for safe surgery. The skin proximal to the laceration was then prepped with ChloraPrep. I then used a mixture of 0.25% bupivacaine with epinephrine along with 1% lidocaine to perform a field block proximal to the zone of injury. This was given a few minutes to set up where he noted significant improvement with sensation about the wound bed. The foot was then fully prepped with Betadine. He was able to tolerate this well. After the foot was fully prepped it was draped in a standard fashion. The wound was then irrigated with at least 1 L of normal saline. Sharp dissection was carried out along some the jagged skin edges medially. Any nonviable tissue was also sharply dissected. After irrigation and debridement I then inspected the foot. The bony involvement was fairly subtle about the base of the 2nd and 3rd toes, proximal phalanges. The capsular tissue to the MTP joint of the second toe and a portion of the third toe is also involved. However, there is no true fracture line per se and that there is mostly avulsed tissue. Once again anything nonviable was resected. Further inspection showed an obvious laceration to the extensor tendon mechanism to the great toe. The entire width of this was transected at the level of the MTP joint. The proximal edge of the tendon was identified and brought into the wound and pinned in place with a 25-gauge needle. The cut edge of the tendon was relatively clean at this point. The edges were debrided and then a tendon repair was performed. I placed multiple #2-0 FiberWire horizontal mattress sutures into the extensor urban. I also reinforce this with a #5-0 nylon and epitendinous style suture. He was awake and was able to test the security of the suture and there was no gapping seen at the tendon. The second toe was inspected which once again showed a transected tendon just distal to the MTP joint. The proximal edge of the tendon was attached to capsular structures of the MTP joint and was identifiable. However, this tendon was quite small and the tear was slightly more jagged. I was able to place two #2-0 FiberWire sutures to reapproximate this tendon. This was also inspected and showed to be able to handle full toe flexion as well. Likewise, the third toe was inspected which once again showed a transected tendon just distal to the MTP joint. Once again, like the second toe, the tendon laceration was more jagged and almost seem to be missing some tissue. Nevertheless, is able to reapproximate the tendon edges with a #2-0 FiberWire suture. The wounds were then fully irrigated once again with another 1 L of normal saline. There is no gross debris. The skin edges had already been debrided down to healthier appearing tissue. I then mobilized the skin to close the 1 cm gap of tissue from the laceration. This was done with #4-0 nylon in interrupted fashion with both simple and mattress sutures. The foot was cleaned and dried. Xeroform was applied to the wound. Gauze was placed between the toes. Gauze was placed around the foot and a Kerlix wrap was placed followed by an Theodore wrap above the ankle. He was placed in a postop shoe. He tolerated the procedure well. He is transferred back to the medical surgical floor for discharge to home. He will be weightbearing as tolerated with postop shoe. Follow-up in about 10 days for wound check. He will receive 3 days of outpatient oral antibiotics. Date of Procedure: 11/10/24
== END 2024-11-10 20:32 | disposition home or self-care (01) ==
LOC: ER 17:19 → DSU 17:34 → MS 20:21
PROVIDERS: Admitting Provider Student in an Organized Health Care Education/Training Program; Emergency Provider Emergency Medicine; PCP Nurse Practitioner Family; Visit Provider Student in an Organized Health Care Education/Training Program
DX: S96.121A Laceration of muscle and tendon of long extensor muscle of toe at ankle and foot level, right foot, initial encounter (principal); E78.00 Pure hypercholesterolemia, unspecified; N40.0 Benign prostatic hyperplasia without lower urinary tract symptoms; F41.9 Anxiety disorder, unspecified; E87.1 Hypo-osmolality and hyponatremia; I73.9 Peripheral vascular disease, unspecified; N18.30 Chronic kidney disease, stage 3 unspecified; I12.9 Hypertensive chronic kidney disease with stage 1 through stage 4 chronic kidney disease, or unspecified chronic kidney disease; W29.3XXA Contact with powered garden and outdoor hand tools and machinery, initial encounter; S91.311A Laceration without foreign body, right foot, initial encounter
CPT/HCPCS: 11044; 28208; 96365; 96375; 99223; 99285; 73630; G0378; J0690; J0696; J2270

== ENCOUNTER → 2024-11-18 12:52 | Outpatient (BNVA) | payer MEDICARE, OTHER, SELFPAY | PROVIDERS: PCP Nurse Practitioner Family; Referring Provider Nurse Practitioner Family; Visit Provider Physician Assistant | DX: S91.311A Laceration without foreign body, right foot, initial encounter (principal); S96.921A Laceration of unspecified muscle and tendon at ankle and foot level, right foot, initial encounter; W29.3XXA Contact with powered garden and outdoor hand tools and machinery, initial encounter | CPT/HCPCS: 99213 ==

== ENCOUNTER → 2024-11-26 10:33 | Outpatient (BNVA) | payer MEDICARE, OTHER, SELFPAY | PROVIDERS: PCP Nurse Practitioner Family; Referring Provider Nurse Practitioner Family; Visit Provider Student in an Organized Health Care Education/Training Program | DX: S91.311D Laceration without foreign body, right foot, subsequent encounter (principal); S96.92 Laceration of unspecified muscle and tendon at ankle and foot level; W29.3XXD Contact with powered garden and outdoor hand tools and machinery, subsequent encounter | CPT/HCPCS: 99024 ==

== ENCOUNTER → 2024-12-10 10:47 | Outpatient (BNVA) | payer MEDICARE, OTHER, SELFPAY | PROVIDERS: PCP Nurse Practitioner Family; Referring Provider Nurse Practitioner Family; Visit Provider Physician Assistant | DX: S91.311D Laceration without foreign body, right foot, subsequent encounter (principal); S96.92 Laceration of unspecified muscle and tendon at ankle and foot level; X58.XXXD Exposure to other specified factors, subsequent encounter | CPT/HCPCS: 99213 ==

== ENCOUNTER → 2024-12-24 10:43 | Outpatient (BNVA) | payer MEDICARE, OTHER, SELFPAY | PROVIDERS: PCP Nurse Practitioner Family; Referring Provider Nurse Practitioner Family; Visit Provider Student in an Organized Health Care Education/Training Program | DX: S91.311D Laceration without foreign body, right foot, subsequent encounter (principal); S96.92 Laceration of unspecified muscle and tendon at ankle and foot level; W29.3XXD Contact with powered garden and outdoor hand tools and machinery, subsequent encounter | CPT/HCPCS: 99212 ==

== ENCOUNTER 2025-01-02 09:10 | Emergency (ER) | payer MEDICARE, OTHER, SELFPAY ==
[2025-01-02] VITALS (16 sets, daily range): BP systolic 120–188; BP diastolic 79–98; PULSE 47–73; RESP 14–22; TEMP 36.9; O2SAT 96–99
--- NOTE | 2025-01-02 09:00 | RT.EKG_ITS ---
APPROVED REPORT Exam: Resting ECG Reason for Exam: Chest Pain Patient Location: E HR:84 bpm ECG Measurements Heart Rate 84 AXIS FL 158 P 81 QRSd 91 QRS 55 QT 363 T 48 QTc 429 Conclusion Sinus rhythm, rate 84 No interval abnormalities Borderline ST elevation V1-V4, no reciprocal changes, does not meet STEMI criteria Compared to priors, rate has increased
--- NOTE | 2025-01-02 09:15 | DI.RAD_ITS ---
Exam(s) XR CHEST 2V PA LATERAL EXAM: XR CHEST 2V PA LATERAL CLINICAL HISTORY: Chest pain. TECHNIQUE: 2D digital imaging was performed. COMPARISON: CR XR CHEST 2V PA LATERAL from 04/16/2023 FINDINGS: 2 views: Heart size is normal. The mediastinum is not widened. Lungs are clear. No infiltrates nor pleural effusions. Pectus excavatum again noted IMPRESSION: No acute pulmonary findings. DATA REPOSITORY: RADIATION DOSE DELIVERED:
[2025-01-02] MEDS: Aspirin 81 MG CHEW 324 MG CH (09:32)
[2025-01-02 09:47] LABS: Abs Immature Grans 0.02 10^3/uL (0.0-0.06); HCT 43.9 % (40.0-50.0); HGB 14.3 g/dL (13.5-17.5); Immature Grans % 0.2 %; MCH 29.2 pg (27.0-33.0); MCHC 32.6 % (32.0-36.0); MCV 90 fL (80-95); MPV 10.1 fL (8.0-11.0); Platelet Count 204 10^3/uL (130-400); RBC 4.89 10^6/uL (4.36-5.78); RDW 12.6 % (11.8-14.1); RDW-SD 41.4 fL; WBC 8.17 10^3/uL (4.4-10.8)
--- NOTE | 2025-01-02 09:55 | DI.VRAD_ITS ---
PROCEDURE INFORMATION: Exam: XR Chest Exam date and time: 01/02/2025 9:51 AM Age: 74 years old Clinical indication: Pain; Chest pressure TECHNIQUE: Imaging protocol: Radiologic exam of the chest. Views: 2 views. COMPARISON: CT CHEST/ABD/PEL W 10/16/2024 10:59 AM FINDINGS: Lungs: Hyperinflated lungs. Pleural spaces: No large pleural effusion seen. Heart/Mediastinum: No cardiomegaly. Bones/joints: No acute abnormality. IMPRESSION: No acute findings to explain reported symptoms. Dictated and Authenticated by: Мария Erickson MD. Orderin [facility] MD
[2025-01-02 10:11] LABS: ALT 19 U/L (16-63); AST 19 U/L (15-37); Albumin 4.1 g/dL (3.4-5.0); Alkaline Phosphatase 97 U/L (46-116); Anion Gap 8.3 mmol/L (3-11); BUN 18 mg/dL (7-18); Bilirubin, Total 0.4 mg/dL (0.2-1.0); CO2 31.7 mmol/L (21.0-32.0); Calcium 9.2 mg/dL (8.5-10.1); Chloride 104 mmol/L (98-107); Glucose 103 mg/dL (74-106); Lipase 80 U/L (<78); Magnesium 2.1 mg/dL (1.8-2.4); Potassium 4.4 mmol/L (3.5-5.1); Sodium 144 mmol/L (136-145); Total Protein 7.6 g/dL (6.4-8.2); Troponin I 8 ng/L (<or=76)
[2025-01-02 11:03] LABS: Troponin I 7 ng/L (<or=76)
--- NOTE | 2025-01-02 11:17 | ED.GENADUL_ITS ---
Discharge Plan Disposition Patient Disposition: Home Condition: Stable Discharge Details Clinical Impression: Chest pain of uncertain etiology Primary Care Provider: Isauro Diallo ED Provider: Debbie Hua Home Meds and New Rx's Prescriptions: No Action (DME) Aerochamber MV Spacer See Rx Instructions .Route Qty: 1 0RF Rx Instructions: As directed albuterol sulfate 90 mcg/actuation HFA aerosol inhaler 2 puff inhalation Q6H PRN (Reason: shortness of breath or wheezing) Qty: 8.5 0RF spironolactone 25 mg tablet 25 mg PO DAILY Qty: 90 0RF atenolol 25 mg tablet 25 mg PO DAILY Qty: 90 3RF levothyroxine 112 mcg tablet 112 mcg PO DAILY Qty: 90 4RF aripiprazole 20 mg tablet 20 mg PO QHS Qty: 90 0RF amlodipine-benazepril 5-40 mg capsule 1 cap PO DAILY Qty: 90 1RF mirtazapine 7.5 mg tablet 7.5 mg PO QHS Qty: 90 0RF acetaminophen 500 mg tablet 500 mg PO Q6H PRN PRN (Reason: pain) Qty: 40 3RF ibuprofen 600 mg tablet 600 mg PO TID PRN (Reason: pain) Qty: 60 3RF Discharge Instructions Instructions: Chest Pain, Adult ED Additional Instructions: You were seen in the emergency department today for evaluation of chest pain, that improved on its own over a brief period of time. In our department you had a full physical examination performed, you had an EKG done that did not show any signs of acute heart attack, and had laboratory studies that were reassuring including 2 negative cardiac enzymes. You had an x-ray that did not show any abnormalities which might explain your symptoms. As we discussed, I am not entirely able to say the exact and specific cause of your chest pain. We did discuss your cardiac risk factors, and I do feel that you would benefit from an outpatient stress test, you can contact your primary care provider to order this study. If your chest pain returns, you have shortness of breath, palpitations, or any other concerning symptoms you need to return to the emergency department immediately for reevaluation. Please continue to take all of your medications as prescribed. Thank you for allowing us to be part of your care. Discharge Data Discharge Date/Time-TO BE ENTERED AT DEPARTURE: 01/02/25 11:28 HPI General Mode of arrival: ambulatory . Date/Time Provider Initiated Documentation: 01/02/25 09:19 . Limitations to Documentation: no limitations . Information obtained by: patient and family . HPI Narrative: This is a 74-year-old male patient with a past medical history significant for peripheral arterial disease status post stenting, CKD, hypertension, presenting for evaluation of chest pain. The patient reports that he was resting this morning, and states that he developed a discomfort in the center of his chest in the absence of exertion. This pain was not reproducible with deep breath, palpation, and did not matter on his position. It resolved spontaneously after about 20 minutes, but then recurred shortly after. Again this started to resolve spontaneously, he presented to the ED and at this time reports that his discomfort is 1 out of 10. Denies recent illness or injury, fevers or chills, shortness of breath. The pain does not radiate, feels different than his prior cardiac episodes did. He took aspirin last night, no other medications this morning. Related Data Home Medications Medication Instructions Recorded Confirmed inhalational spacing device #1 ea 07/02/22 01/02/25 (Aerochamber MV spacer) albuterol sulfate 90 mcg/actuation 2 puff inhalation Q 6H PRN 04/16/23 01/02/25 aerosol inhaler shortness of breath or wheez ing #8.5 grams atenolol 25 mg tablet 25 mg PO DAILY #90 tabs 08/2501/02/25 levothyroxine 112 mcg tablet 112 mcg PO DAILY #90 tabs 06/15/24 01/02/25 aripiprazole 20 mg tablet 20 mg PO QHS #90 tabs 01/02/25 amlodipine 5 mg-benazepril 40 mg 1 cap PO DAILY #90 ca ps 10/21/24 01/02/25 capsule acetaminophen 500 mg tablet 500 mg PO Q6H PRN PRN pain #40 tabs 11/10/24 01/02/25 ibuprofen 600 mg tablet 600 mg PO TID PRN pain #60 t abs 11/10/24 01/02/25 spironolactone 25 mg tablet 25 mg PO DAILY #90 tabs 01/02/25 mirtazapine 7.5 mg tablet 7.5 mg PO QHS #90 tabs 12/2801/02/25 Previous Rx's Medication Instructions Recorded inhalational spacing device #1 ea 07/02/22 (Aerochamber MV spacer) albuterol sulfate 90 mcg/actuation 2 puff inhalation Q 6H PRN 04/16/23 aerosol inhaler shortness of breath or wheez ing #8.5 grams atenolol 25 mg tablet 25 mg PO DAILY #90 tabs 08/25 levothyroxine 112 mcg tablet 112 mcg PO DAILY #90 tabs 06/15/24 aripiprazole 20 mg tablet 20 mg PO QHS #90 tabs amlodipine 5 mg-benazepril 40 mg 1 cap PO DAILY #90 ca ps 10/21/24 capsule acetaminophen 500 mg tablet 500 mg PO Q6H PRN PRN pain #40 tabs 11/10/24 ibuprofen 600 mg tablet 600 mg PO TID PRN pain #60 t abs 11/10/24 spironolactone 25 mg tablet 25 mg PO DAILY #90 tabs mirtazapine 7.5 mg tablet 7.5 mg PO QHS #90 tabs 12/28 Allergies Allergy/AdvReac Type Severity Reaction Status Date / Time Gadolinium-Containing Allergy Mild rash Verified 01/02/25 09:22 Contrast Medi Penicillins AdvReac Hives Verified 01/02/25 09:22 General Stated Complaint: Chest Pain TERESITA: 3 Exam Narrative Exam Narrative: Gen: Awake and alert, in no apparent distress HEENT: Non-icteric sclera Neck: Supple Lungs: No apparent respiratory distress, normal respiratory effort. Lung sounds clear and equal bilaterally without wheezes, rhonchi, rales CV: Appears well perfused, heart with regular rate and rhythm, strong and symmetrical distal pulses, no murmurs auscultated Abdomen: Non-distended, soft, nontender MSK: Moves 4 extremities without apparent limitation in ROM. No peripheral edema, no unilateral calf swelling or tenderness Skin: Visualized skin without rashes, cyanosis. Neuro: Normal Gait, no obvious focal deficits or facial asymmetry. Speaks in full, clear sentences. Psych: Appropriate for situation. Course Vital Signs Vital signs: Vital Signs Temperature 36.9 C 01/02/25 09:20 Pulse 73 01/02/25 09:20 Respiratory Rate 14 01/02/25 09:20 Blood Pressure 188/98 H 01/02/25 09:20 Pulse Oximetry 99 01/02/25 09:20 Temperature 36.9 C 01/02/25 09:20 Temperature Source Oral 01/02/25 09:20 Pulse 51 L 01/02/25 10:31 Pulse 57 L 01/02/25 10:31 Respiratory Rate 16 01/02/25 10:31 Respiratory Effort Short of Breath 01/02/25 09:23 Respiratory Depth Normal 01/02/25 09:23 Respiratory Pattern Normal 01/02/25 09:23 Blood Pressure 129/81 01/02/25 10:31 Blood Pressure Mean 96 01/02/25 10:31 Blood Pressure Position Sitting 01/02/25 09:20 Pulse Oximetry 97 01/02/25 10:31 Oxygen Delivery Method Room Air 01/02/25 09:20 Oxygen Flow Rate 0 01/02/25 09:20 Pain Level 3 01/02/25 09:23 Lab/Test Results Lab/Test Results: Laboratory Tests Range/Units 01/02/25 01/02/25 09:38 10:30 WBC (4.4-10.8) 10^3/uL 8.17 RBC (4.36-5.78) 10^6/uL 4.89 Hgb (13.5-17.5) g/dL 14.3 Hct (40.0-50.0) % 43.9 MCV (80-95) fL 90 MCH (27.0-33.0) pg 29.2 MCHC (32.0-36.0) % 32.6 RDW (11.8-14.1) % 12.6 Plt Count (130-400) 10^3/uL 204 MPV (8.0-11.0) fL 10.1 Immature Gran % % 0.2 Neutrophils % % 73.7 Lymphocytes % % 13.6 Monocytes % % 8.8 Eosinophils % % 2.2 Basophils % % 1.5 Nucleated RBC % (0.0-0.3) % 0.0 Absolute Neutrophils (1.2-6.7) 10^3/uL 6.02 Absolute Lymphocytes (1.2-3.4) 10^3/uL 1.11 L Absolute Monocytes (0.1-0.8) 10^3/uL 0.72 Absolute Eosinophils (0.0-0.7) 10^3/uL 0.18 Absolute Basophils (0.0-0.2) 10^3/uL 0.12 Sodium (136-145) mmol/L 144 Potassium (3.5-5.1) mmol/L 4.4 Chloride (98-107) mmol/L 104 Carbon Dioxide (21.0-32.0) mmol/L 31.7 Anion Gap (3-11) mmol/L 8.3 BUN (7-18) mg/dL 18 Creatinine (0.70-1.30) mg/dL 1.4 H Est GFR (CKD-EPI 2020) (mL/min/1.73m2) 53.07 Glucose (74-106) mg/dL 103 Calcium (8.5-10.1) mg/dL 9.2 Magnesium (1.8-2.4) mg/dL 2.1 Total Bilirubin (0.2-1.0) mg/dL 0.4 AST (15-37) U/L 19 ALT (16-63) U/L 19 Alkaline Phosphatase (46-116) U/L 97 Troponin I (<or=76) ng/L 8 7 NT-Pro-B Natriuret Pep (<300) pg/mL 104 Total Protein (6.4-8.2) g/dL 7.6 Albumin (3.4-5.0) g/dL 4.1 Lipase (<78) U/L 80 H Medical Decision Making This is a 74-year-old male patient presenting for evaluation of 2 episodes of chest pain this morning, now largely resolved. My differential includes but is not limited to ACS including STEMI, NSTEMI, unstable angina, certainly considered arrhythmia, pericarditis/myocarditis, aortic pathology. Considered pulmonary abnormalities including pneumonia, bronchitis, pleural effusion, pulmonary edema, reactive airway disease, pneumothorax. The patient is without tachycardia, hypoxia, or a pleuritic component to his pain to significantly increase my concern for pulmonary embolism. No GI symptoms or vomiting to suggest Boerhaave's, esophagitis, peptic ulcer disease, pancreatitis. Considered musculoskeletal pathologies including costochondritis, chest wall pain. I provided the patient with 4 baby aspirin, and obtained an EKG which shows a sinus rhythm with some borderline ST segment elevations without associated reciprocal changes, I do note that these were present on prior EKGs and attributed to LVH and elevated amplitude. We will obtain labs to include CBC, CMP, magnesium, troponin, BNP, and lipase. I will obtain a chest x-ray. - I independently interpreted the laboratory studies, which show no significant leukocytosis, anemia, or thrombocytopenia. The chemistry panel is without evidence of electrolyte abnormality, new or worsening kidney dysfunction, or liver injury. Lipase is low, and the troponin was negative and without interval increase in 1 hour delta recheck. The patient is symptom-free at this time. Chest x-ray reviewed by myself and shows no mediastinal widening, pulmonary changes or other abnormalities to explain the patient's symptoms. Given the lack of symptoms and lack of significant delta change on troponin he does not meet criteria for ongoing troponin trending. I did have a shared decision-making conversation with this patient regarding his risk factors, he mata s adequate outpatient follow-up and is desiring to have stress testing performed outpatient. I counseled him to reach out to his primary care provider to have this test scheduled. We had an extended conversation regarding return precautions. At this time, the patient has had a full medical evaluation and is safe for discharge to home. They are hemodynamically stable, ambulatory, and tolerating PO. They are understanding of the follow-up plan and return precautions. They left our facility without incident. Debbie Hua MD [facility] All Active Problems (Updated 01/02/25 @ 11:20 by Debbie Hua MD) Chest pain of uncertain etiology (Acute) Urinary urgency (Acute) Laceration of foot, right, complicated (Acute 11/10/24) S/P I&D and closure: 11/10/2024 Laceration of right foot with tendon involvement (Acute 11/10/24) S/P Repair: 11/10/2024 Hematuria (Acute) Night sweats (Acute) Weight loss (Acute) Fatigue (Acute) Skin lesions (Acute) Neck pain (Acute) History of tobacco abuse (Acute) Tubular adenoma (Acute ~10/2022) Colon polyp, hyperplastic (Acute ~10/2022) Hypercholesteremia (Chronic) BPH w/o urinary obs/LUTS (Acute) Essential hypertension (Acute Unknown) Anxiety (Chronic) History of chest pain (Chronic) Per CT records: EKG NSR without acute changes 05/05/2013, Stress Test:Extremely poor exercise capacity but negative stress test without EKG changes at 91% of maximum predicted heart rate for age. BP response normal, no arrhythmias detected; pharmalogic nuclear stress test might be useful to better exclude possible underlying ischemia in this patient with extremely poor exercise tolerance. 24 Holter Monitor done 06/01/13: SR with 87 PVCs noted. No runs noted. No pauses noted. No arrythmias. Cardiac Echo was noted as being ordered but none found in packet of Medical Records. (See scanned record- Dr. Eliazar Lovett) Tear of medial meniscus of left knee (Acute) Hyponatremia (Acute) 02/2020- Na-124, recurrence, 01/2021-Na -129 presumed secondary to HCTZ Hypothyroidism (Chronic) hx of Hashimotos thyroiditis per pt Chronic kidney disease (Chronic) stage 3, 01/2021, Cr-1.4 PAD (peripheral artery disease) (Acute) 2019, right leg claudication , s/p stent, followed by [facility] vascular Screening for colon cancer (Acute) Medical History Screening PSA (prostate specific antigen) COVID-19 08/03/2021 Positive colorectal cancer screening using Cologuard test COPD (chronic obstructive pulmonary disease) Pt. states he runs out of breath pretty quickly Hypolipidemia Tobacco abuse QUIT 08/2019, about 20 pk yr-declines lung cancer screen as of 09/2021 Urinary frequency Surgical History History of colonoscopy (~10/2022) Status post peripheral artery angioplasty with insertion of stent Stents in leg r/t to claudication pt. states pelvic area and mid thigh-[facility] History of tonsillectomy Family History Mother Asthma Dementia Father Heart disease Prostate cancer Brother No problems noted. Son No problems noted. Daughter No problems noted. Social History Smoking/Tobacco Use Status: Former Tobacco Use tobacco type: cigarettes Quit Date: 03/04/21 Pack-years: 40 Tobacco: How many years used: 40 Second Hand Exposure: Yes Smoking risk assessment performed?: Yes Alcohol Intake: current Alcohol Intake frequency: a few times a month Alcohol type: beer Drug use: Socially Substance use type: marijuana Details: 1 bowl daily is average. Adopted: No Caregiver/Support person: No Foster care: No Household members: spouse Housing: house Number of Children: 2 number of grandchildren: 3 Education Level: college Details: Some college/no degree Do you need help understanding health information?: Rarely current occupation: Retired Pets and animals: Yes Pets and animals: cat(s) and dog(s) Sexually active: Yes Do you think of yourself as: decline to answer Current gender identity: male What is your relationship status?: How often do you talk on the phone with friends or family?: three or more times per week How often do you get together with friends or relatives?: twice per week How often do you attend latter-day or jewish services?: decline to answer Do you belong to any clubs or organized social groups?: yes Panel score (0-1 are the most socially isolated patients): 3 What type of physical activity do you participate in: walking and bicycling Duration: 15-30 minutes/day Frequency: other Details: twice daily Radha/Anabaptist: Nondenominational Special radha needs: No Seatbelt use: always Drive intox or ride w/intox non cdl driver: No Firearms in home: No Do you feel safe at home: Yes Do you feel safe in your relationship?: Yes Victim of physical abuse: No Victim of emotional abuse: No Victim of sexual abuse: No Additional Social history: refuses to answer any emotional questions
== END 2025-01-02 11:28 | disposition home or self-care (01) ==
PROVIDERS: Emergency Provider Emergency Medicine; PCP Nurse Practitioner Family
DX: R07.9 Chest pain, unspecified (principal); R06.02 Shortness of breath
CPT/HCPCS: 99284; 99285; 36415; 80053; 83690; 93005; 71046; 83735; 83880; 84484; 85025; 93010

== ENCOUNTER → 2025-01-14 02:24 | Outpatient (CLI) | payer MEDICARE, OTHER, SELFPAY ==
--- NOTE | 2025-01-14 05:45 | ETT_ITS ---
APPROVED REPORT Exam: Exercise Treadmill Patient Location: Out-Patient Room/Bed: Stress Nurse: Rebeca Rand RN Ordering Provider:EMY BECKER, Contact Number: [phone] BMI: 21.37 Baseline Rhythm: Sinus Rhythm Indications: Chest pain Medical History Medical History: PAD s/p stenting, CKD, HTN, h/o tobacco abuse, high cholesterol, BPH, anxiety, hypothyroid Cardiac Medications: Albuterol, atenolol, levothyroxine, aripiprazole, amlodipine-benazepril, spironolactone, mirtazapine Allergies: Contrast, penicillins Cardiac Risk Factors: Family hx, HTN, HLD, PVC, COPD, former smoker Previous Cardiac Procedures: None Pretest Chest Pain Characteristics: None Exercise History: Sedentary Physical Disabilities: Left foot Lung Sounds: Clear to auscultation Heart Sounds: Regular Stress Test Details Test: Exercise stress testing was performed using a Juanito protocol. Rest Stress HR Resting HR Supine: 77 bpm Max Heart Rate (APMHR): 147 bpm Resting HR Standin bpm Target HR (85% APMHR): 125 bpm Max HR Achieved: 136 bpm % of APMHR: 93 Recovery HR: 92 bpm HR response to stress: Normal HR response to stress BP Resting BP Supine: 130/72 mmHg Resting BP Standin/86 mmHg Max BP: 212/100 mmHg Recovery BP: 142/80 mmHg BP response to stress: Normal blood pressure response to stress. ECG Resting ECG: Sinus Rhythm Ectopy: None Stress ECG: Sinus Tachycardia ST Change: No significant ST segment changes noted Arrhythmia: None Recovery ECG: Sinus Rhythm Recovery ST Change: No significant ST segment changes noted Recovery Arrhythmia: Occasional PVC's, PAC's Clinical Reason for Termination: Severe SOB, , Target HR Achieved Stress Symptoms: Severe SOB Exercise duration: 02 min56 sec Highest Stage Reached: Stage 1: 1.7 mph at 10% grade. Exercise capacity: 4.64 METs Angina Score: None Rate Pressure Product: 28642 Stress ECG Conclusion 1. Resting electrocardiogram showed late transition 2. Patient exercised on Juanito protocol for 3 minutes, stopping due to shortness of breath. Poor exercise capacity 3. Rapid heart rate response to exercise suggest deconditioning. Maximal heart rate achieved was 93% of predicted for age 4. There was no electrocardiographic evidence of myocardial ischemia 5. There were no significant dysrhythmias Stress Test Summary STAGE Time (mins) Speed (mph) Grade (%) HR BP SpO2 SYMPTOMS METS Supine 77 130/72 97% Standing 108 138/86 1 3 1.7 10 136 Severe SOB 4.5 1 min recovery 117 212/100 97% Occasional PVC's 3 min recovery 97 150/80 97% Rare PAC 6 min recovery 92 142/80 98% Patient met target HR and requested to stop treadmill r/t severe SOB. All symptoms resolved by test end. Patient left ambulatory in no apparent distress.
== END ==
LOC: DI 02:24
PROVIDERS: PCP Nurse Practitioner Family; Visit Provider Nurse Practitioner Family
DX: R07.9 Chest pain, unspecified (principal)
CPT/HCPCS: 93016; 93018; 93017